=== PATIENT | male | born 1955 | race Caucasian/White ===

== ENCOUNTER → 2017-09-06 | Outpatient (CLI) | payer OTHER ==
[2017-09-06 11:12] LABS: Blood Urea Nitrogen 20 mg/dL (9-20)
--- NOTE | 2017-09-06 21:08 | MR ---
EXAMINATION TYPE: MR iac wo/w con DATE OF EXAM: 09/06/2017 COMPARISON: NONE HISTORY: Right hearing loss CONTRAST: Performed utilizing 9 mL intravenous Gadavist gadolinium contrast. TECHNIQUE: Multiplanar, multiecho imaging on a 3.0 Yessica magnet is performed through the brain. Atte ntion is paid to the internal auditory canals with thin section imaging. Postcontrast imaging is per formed through the internal auditory canals. FINDINGS:Craniovertebral junction is normal. The pituitary is normal. Diffusion-weighted imaging is performed. No suspicious hyperintensity is present to suggest an acute intracranial infarct or acute ischemic area. Signal within the brain has minimal periventricular white matter hyperintensity on T2 and inversion r ecovery type sequences which can suggest some chronic appearing white matter ischemic type change. No mass effect is evident. No focal infarct is evident.. Thin section imaging is performed through the internal auditory canals and cerebellar pontine angles. No cerebellar pontine angle masses are evident. The internal auditory canals appear normal without expansion or erosion. Postcontrast imaging was performed. No suspicious enhancement is evident within the internal audito ry canals or the included portions of the brain. Pituitary stalk is midline. There may be an air-fluid level within the right maxillary sinus. Mild mucosal thickenings within the right maxillary sinus. Correlate for acute sinusitis. Minimal mucosal thickening may be within ethmo id air cells. Remaining paranasal sinuses are clear. Mastoid air cells are clear. No abnormal enhancement is evident within the brain or elsewhere within the visualized portions of th e study. IMPRESSIONS: 1. Normal internal auditory canals. 2. Minimal periventricular chronic appearing white matter ischemic type changes. 3. Clinical consideration for acute right maxillary sinusitis is recommended.
== END | disposition home or self-care (01) ==
LOC: RADMRIMAIN 07-06 14:14 → EDBD 07-06 15:15 → RADMRIMAIN 10:00
PROVIDERS: ATTEND Otolaryngology Otology & Neurotology
DX: H90.5 Unspecified sensorineural hearing loss (principal)
CPT/HCPCS: 82565; 84520; 70553; A9581

== ENCOUNTER 2018-09-08 01:11 | Emergency (ER) | payer OTHER ==
[2018-09-08 01:23] VITALS: BP 149/88; PULSE 69; RESP 16; TEMP 98.3
--- NOTE | 2018-09-08 02:01 | ED ---
General Adult HPI - General Chief complaint: Recheck/Abnormal Lab/Rx Stated complaint: [facility] testing no injury Time Seen by Provider: 09/08/18 01:27 Source: patient Mode of arrival: ambulatory Limitations: no limitations - History of Present Illness Initial comments: Patient is here for drug screen. Declines medical screening exam. - Related Data Home Medications Medication Instructions Recorded Confirmed Naproxen 500 mg PO DAILY PRN 09/08/18 09/08/18 Allergies Allergy/AdvReac Type Severity Reaction Status Date / Time No Known Allergies Allergy Verified 09/08/18 01:23 Review of Systems ROS Statement: Those systems with pertinent positive or pertinent negative responses have been documented in the HPI. ROS Other: All systems not noted in ROS Statement are negative. Past Medical History Past Medical History: No Reported History History of Any Multi-Drug Resistant Organisms: None Reported Additional Past Surgical History / Comment(s): Sinus pollups removed, Broken Jaw repair Past Psychological History: No Psychological Hx Reported Smoking Status: Current every day smoker Past Alcohol Use History: None Reported Past Drug Use History: None Reported General Exam Limitations: no limitations Course Vital Signs 09/08/18 01:15 Temperature 98.3 F Pulse Rate 69 Respiratory 16 Rate Blood Pressure 149/88 O2 Sat by Pulse 96 Oximetry Disposition Clinical Impression: Encounter for drug screening Disposition: HOME SELF-CARE Condition: Good Is patient prescribed a controlled substance at d/c from ED?: No Referrals: Pedro Márquez MD [Primary Care Provider] - 1-2 days
== END 2018-09-08 01:45 ==
LOC: EC 01:11
DX: Z02.89 Encounter for other administrative examinations (principal)

== ENCOUNTER 2019-12-27 01:59 | Inpatient (IN) | payer OTHER ==
[2019-12-27] MEDS ORDERED: SODIUM CHLORIDE 0.9% 1,000 ML IV STA (02:21)
[2019-12-27] MEDS ORDERED: MORPHINE SULFATE 4 MG/ML SYRINGE IV STA (02:21)
[2019-12-27] MEDS ORDERED: ACETAMINOPHEN TAB 325 MG TAB PO STA (02:29)
--- NOTE | 2019-12-27 02:29 | ED ---
General Adult HPI - General Source: patient, RN notes reviewed, old records reviewed Mode of arrival: ambulatory Limitations: no limitations <Logan Espinoza - Last Filed: 12/27/19 02:28> <Mando Mejia - Last Filed: 12/27/19 04:03> - General Chief complaint: Abdominal Pain Stated complaint: Back pain Time Seen by Provider: 12/27/19 02:08 - History of Present Illness Initial comments: 64-year-old male patient presents to ED for chief complaint of back and abdominal pain. Patient works for the last week he has been having pain in his lower and thoracic back region. Patient also works a has been having generalized abdominal discomfort which is worse in the lower quadrants region. Also reports that he has been having fevers. He states he does have a baseline smoker's cough over this is unchanged. He has been having nausea without emesis. Denies any chest pain or shortness of breath. Ports that he has had some mild burning with urination and states that the urine. Systemic: Pt denies fatigue, fever/chills, rash. Pt denies weakness, night sweats, weight loss. Neuro: Pt denies headache, visual disturbances, syncope or pre-syncope. HEENT: Pt denies ocular discharge or irritation, otalgia, rhinorrhea, pharyngitis or notable lymphadenopathy. Cardiopulmonary: Pt denies chest pain, SOB, heart palpitations, dyspnea on exertion. . : Pt denies dysuria, burning w/ urination, frequency/urgency. Denies new onset urinary or bowel incontinence. MSK: Pt denies myalgia, loss of strength or function in extremities. Neuro: Pt denies new onset weakness, paresthesias. (Logan Espinoza) - Related Data Home Medications Medication Instructions Recorded Confirmed Naproxen 500 mg PO DAILY PRN 09/08/18 09/08/18 Allergies Allergy/AdvReac Type Severity Reaction Status Date / Time No Known Allergies Allergy Verified 12/27/19 02:06 Review of Systems ROS Other: All systems not noted in ROS Statement are negative. <Logan Espinoza - Last Filed: 12/27/19 02:28> ROS Other: All systems not noted in ROS Statement are negative. <Mando Mejia - Last Filed: 12/27/19 04:03> ROS Statement: Those systems with pertinent positive or pertinent negative responses have been documented in the HPI. Past Medical History Past Medical History: No Reported History History of Any Multi-Drug Resistant Organisms: None Reported Additional Past Surgical History / Comment(s): Sinus pollups removed, Broken Jaw repair Past Psychological History: No Psychological Hx Reported Smoking Status: Current every day smoker Past Alcohol Use History: None Reported Past Drug Use History: None Reported <Logan Espinoza - Last Filed: 12/27/19 02:28> General Exam Limitations: no limitations <Logan Espinoza - Last Filed: 12/27/19 02:28> Eye exam: Present: scleral icterus <Mando Mejia - Last Filed: 12/27/19 04:03> - General Exam Comments Initial Comments: Constitutional: NAD, AOX3, Pt has pleasant affect. HEENT: NC/AT, trachea midline, neck supple, no lymphadenopathy. Posterior pharynx non erythematous, without exudates. External ears appear normal, without discharge. Mucous membranes moist. Eyes PERRLA, EOM intact. There is no scleral icterus. No pallor noted. Cardiopulmonary: RRR, no murmurs, rubs or gallops, no JVD noted. Lungs CTAB in anterior and posterior gaines. No peripheral edema. Abdominal exam: Abdomen soft and non-distended. Mild generalized abdominal tenderness, moderate tenderness noted left lower right lower quadrant. Bowel sounds active in LLQ. No hepatosplenomegaly. No ecchymosis Neuro: CN II-XII grossly intact. No nuchal rigidity. No raccon eyes, no hansen sign, no hemotympanum. No cervical spinal tenderness. MSK: No posterior calf tenderness bilaterally, homans sign negative bilaterally. Posterior tibialis and radial pulse +2 bilaterally. Sensation intact in upper and lower extremities. Full active ROM in upper and lower extremities, 5/5 stregnth. (Logan Espinoza) Course Vital Signs 12/27/19 12/27/19 02:04 03:58 Temperature 100.1 F H Pulse Rate 81 69 Respiratory 20 18 Rate Blood Pressure 173/81 143/87 O2 Sat by Pulse 99 97 Oximetry Medical Decision Making - Lab Data Result diagrams: 12/27/19 02:45 12/27/19 02:45 <Mando Mejia - Last Filed: 12/27/19 04:03> - Medical Decision Making 64-year-old male presenting with abdominal pain and right flank pain. Patient has had symptoms for approximately one week. He has generalized abdominal tenderness. On exam he is jaundiced with scleral icterus, vital signs are stable. Workup reveals normal white blood cell count with left shift, stable hemoglobin. He has transaminitis, elevation in alkaline phosphatase and significantly elevated bilirubin at 7.1. Bilirubin fractions and hepatitis panel have been ordered these results are pending. CT of the abdomen and pelvis showing dilated common bile duct, dilated gallbladder, concern for ascending cholangitis. Patient initiated on antibiotics in the emergency department. Both general surgery, Dr. Ruvalcaba and gastroenterology Dr. Bertrand have been contacted. (Mando Mejia) - Lab Data Lab Results 12/27/19 12/27/19 12/27/19 Range/Units 02:45 02:45 02:45 WBC 10.4 (3.8-10.6) k/uL RBC 4.73 (4.30-5.90) m/uL Hgb 15.7 (13.0-17.5) gm/dL Hct 48.6 (39.0-53.0) % MCV 102.7 H (80.0-100.0) fL MCH 33.2 (25.0-35.0) pg MCHC 32.4 (31.0-37.0) g/dL RDW 14.7 (11.5-15.5) % Plt Count 109 L (150-450) k/uL Neutrophils % 89 % Lymphocytes % 5 % Monocytes % 3 % Eosinophils % 2 % Basophils % 0 % Neutrophils # 9.3 H (1.3-7.7) k/uL Lymphocytes # 0.5 L (1.0-4.8) k/uL Monocytes # 0.3 (0-1.0) k/uL Eosinophils # 0.2 (0-0.7) k/uL Basophils # 0.0 (0-0.2) k/uL Macrocytosis Slight Sodium 134 L (137-145) mmol/L Potassium 4.4 (3.5-5.1) mmol/L Chloride 98 (98-107) mmol/L Carbon Dioxide 27 (22-30) mmol/L Anion Gap 9 mmol/L BUN 14 (9-20) mg/dL Creatinine 0.71 (0.66-1.25) mg/dL Est GFR (CKD-EPI)AfAm >90 (>60 ml/min/1.73 sqM) Est GFR (CKD-EPI)NonAf >90 (>60 ml/min/1.73 sqM) Glucose 122 H (74-99) mg/dL Plasma Lactic Acid Matt 1.2 (0.7-2.0) mmol/L Calcium 9.0 (8.4-10.2) mg/dL Total Bilirubin 7.1 H (0.2-1.3) mg/dL Conjugated Bilirubin (0.0-0.3) mg/dL Unconjugated Bilirubin (0.0-1.1) mg/dL Delta Bilirubin (0.0-0.2) mg/dL AST 117 H (17-59) U/L ALT 95 H (4-49) U/L Alkaline Phosphatase 581 H (38-126) U/L Total Protein 6.9 (6.3-8.2) g/dL Albumin 4.0 (3.5-5.0) g/dL Lipase 30 (23-300) U/L Urine Color Urine Appearance (Clear) Urine pH (5.0-8.0) Ur Specific Jackson (1.001-1.035) Urine Protein (Negative) Urine Glucose (UA) (Negative) Urine Ketones (Negative) Urine Blood (Negative) Urine Nitrite (Negative) Urine Bilirubin (Negative) Urine Urobilinogen (<2.0) mg/dL Ur Leukocyte Esterase (Negative) Urine RBC (0-5) /hpf Urine WBC (0-5) /hpf Granular Casts (0) /lpf Urine Mucus (None) /hpf Acetaminophen ug/mL Serum Alcohol mg/dL 12/27/19 12/27/19 Range/Units 03:20 03:23 WBC (3.8-10.6) k/uL RBC (4.30-5.90) m/uL Hgb (13.0-17.5) gm/dL Hct (39.0-53.0) % MCV (80.0-100.0) fL MCH (25.0-35.0) pg MCHC (31.0-37.0) g/dL RDW (11.5-15.5) % Plt Count (150-450) k/uL Neutrophils % % Lymphocytes % % Monocytes % % Eosinophils % % Basophils % % Neutrophils # (1.3-7.7) k/uL Lymphocytes # (1.0-4.8) k/uL Monocytes # (0-1.0) k/uL Eosinophils # (0-0.7) k/uL Basophils # (0-0.2) k/uL Macrocytosis Sodium (137-145) mmol/L Potassium (3.5-5.1) mmol/L Chloride (98-107) mmol/L Carbon Dioxide (22-30) mmol/L Anion Gap mmol/L BUN (9-20) mg/dL Creatinine (0.66-1.25) mg/dL Est GFR (CKD-EPI)AfAm (>60 ml/min/1.73 sqM) Est GFR (CKD-EPI)NonAf (>60 ml/min/1.73 sqM) Glucose (74-99) mg/dL Plasma Lactic Acid Matt (0.7-2.0) mmol/L Calcium (8.4-10.2) mg/dL Total Bilirubin 6.1 H (0.2-1.3) mg/dL Conjugated Bilirubin 3.8 H (0.0-0.3) mg/dL Unconjugated Bilirubin 1.1 (0.0-1.1) mg/dL Delta Bilirubin 1.2 H (0.0-0.2) mg/dL AST (17-59) U/L ALT (4-49) U/L Alkaline Phosphatase (38-126) U/L Total Protein (6.3-8.2) g/dL Albumin (3.5-5.0) g/dL Lipase (23-300) U/L Urine Color Dark Yellow Urine Appearance Clear (Clear) Urine pH 7.5 (5.0-8.0) Ur Specific Jackson 1.024 (1.001-1.035) Urine Protein 1+ H (Negative) Urine Glucose (UA) Negative (Negative) Urine Ketones Negative (Negative) Urine Blood Trace H (Negative) Urine Nitrite Negative (Negative) Urine Bilirubin 3+ H (Negative) Urine Urobilinogen 4.0 (<2.0) mg/dL Ur Leukocyte Esterase Small H (Negative) Urine RBC 27 H (0-5) /hpf Urine WBC 1 (0-5) /hpf Granular Casts 1 (0) /lpf Urine Mucus Rare H (None) /hpf Acetaminophen <10.0 ug/mL Serum Alcohol <10 mg/dL Critical Care Time Critical Care Time: Yes Total Critical Care Time: 35 <Mando Mejia - Last Filed: 12/27/19 04:03> Disposition <Logan Espinoza - Last Filed: 12/27/19 02:28> Is patient prescribed a controlled substance at d/c from ED?: No Decision to Admit Reason: Admit from EC Decision Date: 12/27/19 Decision Time: 04:03 <Mando Mejia - Last Filed: 12/27/19 04:03> Clinical Impression: Hyperbilirubinemia, Acute cholecystitis, Ascending cholangitis Disposition: ADMITTED IP TO THIS HOSP Condition: Stable Referrals: Pedro Márquez MD [Primary Care Provider] - 1-2 days
[2019-12-27 02:59] LABS: Basophils % (A) 0 %; Eosinophils # (A) 0.2 k/uL (0-0.7); Eosinophils % (A) 2 %; HCT 48.6 % (39.0-53.0); HGB 15.7 gm/dL (13.0-17.5); Lymphocytes # (A) 0.5 k/uL (1.0-4.8); Lymphocytes % (A) 5 %; MCH 33.2 pg (25.0-35.0); MCHC 32.4 g/dL (31.0-37.0); MCV 102.7 fL (80.0-100.0); Macrocytosis Slight; Mean Platelet Volume 9.8; Monocytes # (A) 0.3 k/uL (0-1.0); Monocytes % (A) 3 %; Neutrophils # (A) 9.3 k/uL (1.3-7.7); Neutrophils % (A) 89 %; Platelet Count 109 k/uL (150-450); RBC 4.73 m/uL (4.30-5.90); RDW 14.7 % (11.5-15.5); WBC 10.4 k/uL (3.8-10.6)
[2019-12-27 03:08] LABS: ALT 95 U/L (4-49); AST 117 U/L (17-59); African American GFR (CKD) >90 (>60 ml/min/1.73 sqM); Alkaline Phosphatase 581 U/L (38-126); Anion Gap 9 mmol/L; Blood Urea Nitrogen 14 mg/dL (9-20); Carbon Dioxide 27 mmol/L (22-30); Chloride 98 mmol/L (98-107); Glucose 122 mg/dL (74-99); Non-African American GFR(CKD) >90 (>60 ml/min/1.73 sqM); Potassium 4.4 mmol/L (3.5-5.1); Sodium 134 mmol/L (137-145); Total Bilirubin 7.1 mg/dL (0.2-1.3); Total Protein 6.9 g/dL (6.3-8.2)
[2019-12-27] MEDS ORDERED: cefTRIAXone IN SWFI 1,000 MG/10 ML SYRINGE IVP STA (03:11)
[2019-12-27 03:40] LABS: Appearance,Urine Clear (Clear); Bilirubin,Urine 3+ (Negative); Blood,Urine Trace (Negative); Color,Urine Dark Yellow; Glucose,Urine (UA) Negative (Negative); Granular Casts,Urine 1 /lpf (0); Ketones,Urine Negative (Negative); Leukocyte Esterase,Urine Small (Negative); Mucus,Urine Rare /hpf; Nitrite,Urine Negative (Negative); PH, Urine 7.5 (5.0-8.0); Protein,Urine 1+ (Negative); RBC,Urine 27 /hpf (0-5); Specific Gravity,Urine 1.024 (1.001-1.035); WBC,Urine 1 /hpf (0-5)
[2019-12-27 03:46] LABS: Acetaminophen <10.0 ug/mL; Alcohol <10 mg/dL; Bilirubin, Conjugated 3.8 mg/dL (0.0-0.3); Bilirubin, Delta 1.2 mg/dL (0.0-0.2); Bilirubin,Unconjugated 1.1 mg/dL (0.0-1.1); Total Bilirubin 6.1 mg/dL (0.2-1.3)
[2019-12-27] MEDS: SODIUM CHLORIDE 0.9% 1,000 ML IV SCH ×2 (03:55→20:16)
--- NOTE | 2019-12-27 03:55 | CT ---
EXAMINATION TYPE: CT abdomen pelvis w con DATE OF EXAM: 12/27/2019 COMPARISON: None HISTORY: LOWER BACK/ABD PAIN CT DLP: 872.50 mGycm Automated exposure control for dose reduction was used. CONTRAST: Performed with IV Contrast, patient injected with 100 mL of Isovue 300. Lung bases are clear of consolidation. There is no pleural effusion. Heart size is normal. There is s mall hiatal hernia. There is dilated intra and extrahepatic bile ducts. The common bile duct measures 1.5 cm. There is dilated gallbladder that measures 5 cm in diameter. There is possible small calcifi ed gallstones in the dependent gallbladder. There is no focal liver defect. Spleen is intact. There i s no evidence of pancreatic mass. There is no adrenal mass. Kidneys show satisfactory contrast opacification. There is no hydronephrosi s. Delayed images show normal renal excretion. There is 3 mm calculus lower pole right kidney. There is no retroperitoneal adenopathy. Ureters are not dilated. Bladder distends smoothly. There is no ing uinal hernia. There is no free fluid in the pelvis. There is no mesenteric edema. There is no ascites or free air. There is no sign of a bowel obstruction. There is no sign of thickened appendix. Append ix not definitely seen. Lumbar vertebra have normal alignment. There is degenerative disc space narrowing throughout the lumb ar spine with vacuum disc and spur formation. There is no compression fracture. Bony pelvis is intact . IMPRESSION: Dilated biliary tree. Distal common bile duct obstruction is suspected. Dilated gallbladder. Nonobstructing right renal calculus.
[2019-12-27] MEDS ORDERED: VANCOMYCIN IV PER PHARMACY 1 EACH MISC MISCELLANE PRN (03:56)
[2019-12-27] MEDS ORDERED: PIPERACILLIN-TAZOBACTAM 3.375 GM in SODIUM CHLORIDE 0.9% 100 ML IVPB STA (03:56)
[2019-12-27] MEDS ORDERED: NALOXONE 0.4 MG/ML 1 ML VIAL IV PRN (03:58)
[2019-12-27] MEDS ORDERED: VANCOMYCIN 1,500 MG in SODIUM CHLORIDE 0.9% 250 ML IVPB STA (04:04)
[2019-12-27] MEDS: HYDROmorphone 0.5 MG/0.5 ML SYRINGE IVP PRN ×2 (04:17→09:23)
[2019-12-27 04:20] LABS: Amphetamine Screen,Urine Not Detected (NotDetected); Barbiturate Screen,Urine Not Detected (NotDetected); Benzodiazepines Screen,Urine Not Detected (NotDetected); Cocaine Screen,Urine Detected (NotDetected); Methadone Screen, Urine Not Detected (NotDetected); Opiate Screen,Urine Detected (NotDetected); Oxycodone Screen, Urine Not Detected (NotDetected); Phencyclidine Screen,Urine Not Detected (NotDetected); Tricyclic Antidepressant,Urine Not Detected (NotDetected); Urn Cannabinoid Scrn Detected (NotDetected)
[2019-12-27 04:32] LABS: Hepatitis A Antibody IgM NEGATIVE
[2019-12-27] MEDS ORDERED: NICOTINE 21MG/24HR PATCH TRANSDERM STA (04:35)
[2019-12-27] MEDS ORDERED: ALBUTEROL NEBULIZED 2.5 MG/3 ML INHALATION PRN (08:10)
[2019-12-27] MEDS ORDERED: ZOLPIDEM 5 MG TAB PO PRN (08:10)
--- NOTE | 2019-12-27 08:24 | P.HPIM ---
History of Present Illness This is a pleasant 64 years old male with no significant past medical history. He is a patient of Dr. Segovia presents because of back pain and fever. His symptoms started about 1 week ago with right middle back pain just below chest, comes and go, colicky/sharp about 10 over 10 on presentation currently /10. Associated with RUQ pain and tenderness no rebound tenderness. No nausea vomiting, he has constipation for 2 days. No chest pain or dyspnea. He smokes about 1 pack per day, occasional alcohol, he admits using substances cocaine marijuana but not her wound is said he uses a substance called kratum. Patient states he uses Wellbutrin for smoking cessation. He denies depression or suicidal ideation Fever on admission with 100.1, rest of vitals are stable, blood pressure this morning 106/66. Left showing no leukocytosis with WBC of 10.4, rest of CBC is unremarkable. Sodium 134, potassium 4.4, creatinine normal 0.4, glucose 122, bilirubin is elevated to 7.1, 6.1, AST high at 117, ALT high 95, UA is not suspicious of infection, urine drug screen is positive for opiates, cocaine and marijuana. Hepatitis a IgM antibodies are negative on admission. CT of the abdomen and pelvis with IV contrast: Dilated biliary tract both intra- and extra-hepatic. Coming bile duct measures 1.5 cm, dilated gallbladder, 5 cm in diameter In the emergency room patient was receiving normal saline bolus of 1 L and started on 100 mL/h, started on Zosyn, vancomycin pain management surgery was placed for GI and surgery service Review of Systems CONSTITUTIONAL: No fever, no malaise, no fatigue. HEENT: No recent visual problems or hearing problems. Denied any sore throat. CARDIOVASCULAR: No orthopnea, PND, no palpitations, no syncope. PULMONARY: No shortness of breath, no cough, no hemoptysis. GASTROINTESTINAL: No diarrhea, no nausea, no vomiting,Normoactive bowel sounds. NEUROLOGICAL: No headaches, no weakness, no numbness. HEMATOLOGICAL: Denies any bleeding or petechiae. GENITOURINARY: Denies any burning micturition, frequency, or urgency. MUSCULOSKELETAL/RHEUMATOLOGICAL: Denies any joint pain, swelling, or any muscle pain. ENDOCRINE: Denies any polyuria or polydipsia. Past Medical History Past Medical History: No Reported History History of Any Multi-Drug Resistant Organisms: None Reported Additional Past Surgical History / Comment(s): Sinus polyps removed, Broken Jaw repair Past Anesthesia/Blood Transfusion Reactions: No Reported Reaction Past Psychological History: No Psychological Hx Reported Smoking Status: Current every day smoker Past Alcohol Use History: None Reported Past Drug Use History: None Reported - Past Family History Father Family Medical History: No Reported History Medications and Allergies Home Medications Medication Instructions Recorded Confirmed Type Naproxen 500 mg PO DAILY PRN 09/08/18 09/08/18 History Allergies Allergy/AdvReac Type Severity Reaction Status Date / Time No Known Allergies Allergy Verified 12/27/19 02:06 Physical Exam Vitals: Vital Signs Temp Pulse Pulse Resp BP BP Pulse Ox 12/27/19 05:09 98.4 F 60 18 106/66 98 12/27/19 04:27 97.4 F L 66 18 139/88 97 12/27/19 03:58 69 18 143/87 97 12/27/19 02:04 100.1 F H 81 20 173/81 99 Intake and Output 12/26/19 12/27/19 12/27/19 22:59 06:59 14:59 Intake Total 100 Balance 100 Intake: Intake, IV Titration 100 Amount Piperacillin-Tazobactam 3 100 .375 gm In Sodium Chloride 0.9% 100 ml @ 25 mls/hr IVPB Q8H [facility] Rx#: [id number] Other: # Voids 1 Weight 81.5 kg GENERAL: The patient is alert and oriented x3, not in any acute distress. Well developed, well nourished. HEENT: Pupils are round and equally reacting to light. EOMI. No scleral icterus. No conjunctival pallor. Normocephalic, atraumatic. No pharyngeal erythema. No thyromegaly. CARDIOVASCULAR: S1 and S2 present. No murmurs, rubs, or gallops. PULMONARY: Chest is clear to auscultation, no wheezing or crackles. -ABDOMEN: Soft, RUQ tenderness, no guarding or rebound tenderness, nondistended, normoactive bowel sounds. No palpable organomegaly. MUSCULOSKELETAL: No joint swelling or deformity. EXTREMITIES: No cyanosis, clubbing, or pedal edema. NEUROLOGICAL: Gross neurological examination did not reveal any focal deficits. SKIN: No rashes. No petechiae Results CBC & Chem 7: 12/27/19 02:45 05/20/20 02:45 Labs: Abnormal Lab Results - Last 24 Hours (Table) 12/27/19 12/27/19 12/27/19 Range/Units 02:45 02:45 03:20 MCV 102.7 H (80.0-100.0) fL Plt Count 109 L (150-450) k/uL Neutrophils # 9.3 H (1.3-7.7) k/uL Lymphocytes # 0.5 L (1.0-4.8) k/uL Sodium 134 L (137-145) mmol/L Glucose 122 H (74-99) mg/dL Total Bilirubin 7.1 H (0.2-1.3) mg/dL Conjugated Bilirubin (0.0-0.3) mg/dL Delta Bilirubin (0.0-0.2) mg/dL AST 117 H (17-59) U/L ALT 95 H (4-49) U/L Alkaline Phosphatase 581 H (38-126) U/L Urine Protein 1+ H (Negative) Urine Blood Trace H (Negative) Urine Bilirubin 3+ H (Negative) Ur Leukocyte Esterase Small H (Negative) Urine RBC 27 H (0-5) /hpf Urine Mucus Rare H (None) /hpf Urine Opiates Screen (NotDetected) Urine Cocaine Screen (NotDetected) U Marijuana (THC) Screen (NotDetected) 12/27/19 12/27/19 Range/Units 03:23 03:23 MCV (80.0-100.0) fL Plt Count (150-450) k/uL Neutrophils # (1.3-7.7) k/uL Lymphocytes # (1.0-4.8) k/uL Sodium (137-145) mmol/L Glucose (74-99) mg/dL Total Bilirubin 6.1 H (0.2-1.3) mg/dL Conjugated Bilirubin 3.8 H (0.0-0.3) mg/dL Delta Bilirubin 1.2 H (0.0-0.2) mg/dL AST (17-59) U/L ALT (4-49) U/L Alkaline Phosphatase (38-126) U/L Urine Protein (Negative) Urine Blood (Negative) Urine Bilirubin (Negative) Ur Leukocyte Esterase (Negative) Urine RBC (0-5) /hpf Urine Mucus (None) /hpf Urine Opiates Screen Detected H (NotDetected) Urine Cocaine Screen Detected H (NotDetected) U Marijuana (THC) Screen Detected H (NotDetected) Thrombosis Risk Factor Assmnt - Choose All That Apply Any of the Below Risk Factors Present?: No Other Risk Factors: Yes Each Risk Factor Represents 2 Points: Age 61-74 years Other congenital or acquired thrombophilia - If yes, enter type in comment: No Thrombosis Risk Factor Assessment Total Risk Factor Score: 2 Thrombosis Risk Factor Assessment Level: Low Risk Assessment and Plan Assessment: acute ascending cholangitis Dilated intra-and extrahepatic biliary tract and dilated gallbladder about 5 cm. Mostly associated with gallstones Substance abuse including opiates, cocaine and marijuana Plan: This is a pleasant 64 years old male who presents with ascending cholangitis with gallstone disease.Continue with antibiotics. Follow-up culture results. GI and surgery consult. Continue with IV fluids. Pain management. Also co nsult infectious disease. Patient is counseled about substance abuse avoidance. Labs and medication were reviewed.. Continue same treatment. Continue with symptomatic treatment. Resume home medication. Monitor lytes and vitals. DVT and GI prophylaxis. Further recommendations of the clinical course of the patient DVT prophylaxis: Subcutaneou Lovenox GI Prophylaxis: Pepcid Prognosis is guarded
[2019-12-27] MEDS: ENOXAPARIN 40 MG/0.4 ML SYRINGE SQ SCH (09:18)
[2019-12-27] MEDS: FAMOTIDINE 20 MG/2 ML VIAL IV SCH ×2 (09:18→20:15)
[2019-12-27] MEDS: PIPERACILLIN-TAZOBACTAM 3.375 GM in SODIUM CHLORIDE 0.9% 100 ML IVPB SCH ×2 (11:51→20:15)
--- NOTE | 2019-12-27 12:00 | P.CONS ---
History of Present Illness - Reason for Consult Consult date: 12/27/19 Elevated liver enzymes, suspected cholangitis Requesting physician: Portillo E Sheet - Chief Complaint Back and abdominal pain - History of Present Illness 64-year-old male who denies any significant past medical history who presented to the hospital with constellation of complaints including back pain, abdominal pain and fever. The patient reports symptoms for approximately one week. He had been experiencing abdominal and back pain. He believed that this was secondary to his job and strenuous activity however continued. He reported the pain as sharp and severe in nature in the middle of his back and with associated right upper quadrant pain and tenderness. He denied any nausea or vomiting. He did report some constipation over the past 2 days. Patient was having fevers at home. He presented to the hospital for further evaluation and was found to have a fever of 100.1F, WBC 10.4, hemoglobin 8.7, platelet count 109,000, total bilirubin 7.1, alkaline phosphatase 581, AST 117, ALT 95 with computed tomography scan of the abdomen significant for a dilated gallbladder and a dilated biliary tree with suspicion for distal bile duct obstruction. Review of Systems REVIEW OF SYSTEMS: CONSTITUTIONAL: Denies any weight change or fatigue, but was experiencing fevers. CARDIOVASCULAR: Denies any chest pain, palpitations high or low blood pressures RESPIRATORY: Denies any shortness of breath, hemoptysis or cough. GENITOURINARY: No dysuria or hematuria. MUSCULOSKELETAL: No weakness reported. SKIN: Denies any new rashes or lesions, but had noted some jaundice. PSYCHIATRIC: Denies any depression or anxiety, tobacco abuse. NEUROLOGY: Denies headache, denies any new focal deficits. EARS/NOSE/THROAT: No recent hearing change, congestion, nasal discharge or sore throat. EYES: No pain in eyes, discharge or change in vision. GASTROINTESTINAL: As per HPI. Past Medical History Past Medical History: No Reported History History of Any Multi-Drug Resistant Organisms: None Reported Additional Past Surgical History / Comment(s): Sinus polyps removed, Broken Jaw repair Past Anesthesia/Blood Transfusion Reactions: No Reported Reaction Past Psychological History: No Psychological Hx Reported Smoking Status: Current every day smoker Past Alcohol Use History: None Reported Past Drug Use History: None Reported - Past Family History Father Family Medical History: No Reported History Medications and Allergies Home Medications Medication Instructions Recorded Confirmed Type Naproxen 500 mg PO DAILY PRN 09/08/18 12/27/19 History Albuterol Sulfate [Proair Hfa] 2 puff INHALATION RT-Q6H PRN 12/27/19 12/27/19 History Testosterone Cypionate 200 mg IM Q14D 12/27/19 12/27/19 History [Depo-Testosterone] Zolpidem [Ambien] 2.5 - 5 mg PO HS PRN 12/27/19 12/27/19 History buPROPion HCL [Wellbutrin SR] See Taper PO DAILY 12/27/19 12/27/19 History Allergies Allergy/AdvReac Type Severity Reaction Status Date / Time No Known Allergies Allergy Verified 12/27/19 08:07 Physical Exam Vitals: Vital Signs Temp Pulse Pulse Resp BP BP Pulse Ox 12/27/19 05:09 98.4 F 60 18 106/66 98 12/27/19 04:27 97.4 F L 66 18 139/88 97 12/27/19 03:58 69 18 143/87 97 12/27/19 02:04 100.1 F H 81 20 173/81 99 Intake and Output 12/26/19 12/27/19 12/27/19 22:59 06:59 14:59 Intake Total 100 Balance 100 Intake: Intake, IV Titration 100 Amount Piperacillin-Tazobactam 3 100 .375 gm In Sodium Chloride 0.9% 100 ml @ 25 mls/hr IVPB Q8H [facility] Rx#: [id number] Other: # Voids 1 Weight 81.5 kg On physical examination, patient appears comfortable in no apparent distress. HEAD: Normocephalic, atraumatic. EYES: No scleral icterus. No conjunctival injection. MOUTH: No lesions, tongue midline. NECK: Trachea midline, no gross abnormalities. CHEST: Decreased air entry in all lung gaines. HEART: Regular rate and rhythm. ABDOMEN: Soft, mildly tender to palpation. Bowel sounds are positive. No organomegaly. No guarding or rigidity. EXTREMITIES: No pedal edema. SKIN: No rashes, no jaundice. NEUROLOGIC: Alert and oriented x3. No focal deficits. Results CBC & Chem 7: 12/27/19 02:45 12/27/19 02:45 Labs: Abnormal Lab Results - Last 24 Hours (Table) 12/27/19 12/27/19 12/27/19 Range/Units 02:45 02:45 03:20 MCV 102.7 H (80.0-100.0) fL Plt Count 109 L (150-450) k/uL Neutrophils # 9.3 H (1.3-7.7) k/uL Lymphocytes # 0.5 L (1.0-4.8) k/uL Sodium 134 L (137-145) mmol/L Glucose 122 H (74-99) mg/dL Total Bilirubin 7.1 H (0.2-1.3) mg/dL Conjugated Bilirubin (0.0-0.3) mg/dL Delta Bilirubin (0.0-0.2) mg/dL AST 117 H (17-59) U/L ALT 95 H (4-49) U/L Alkaline Phosphatase 581 H (38-126) U/L Urine Protein 1+ H (Negative) Urine Blood Trace H (Negative) Urine Bilirubin 3+ H (Negative) Ur Leukocyte Esterase Small H (Negative) Urine RBC 27 H (0-5) /hpf Urine Mucus Rare H (None) /hpf Urine Opiates Screen (NotDetected) Urine Cocaine Screen (NotDetected) U Marijuana (THC) Screen (NotDetected) 12/27/19 05 Range/Units 03:23 03:23 MCV (80.0-100.0) fL Plt Count (150-450) k/uL Neutrophils # (1.3-7.7) k/uL Lymphocytes # (1.0-4.8) k/uL Sodium (137-145) mmol/L Glucose (74-99) mg/dL Total Bilirubin 6.1 H (0.2-1.3) mg/dL Conjugated Bilirubin 3.8 H (0.0-0.3) mg/dL Delta Bilirubin 1.2 H (0.0-0.2) mg/dL AST (17-59) U/L ALT (4-49) U/L Alkaline Phosphatase (38-126) U/L Urine Protein (Negative) Urine Blood (Negative) Urine Bilirubin (Negative) Ur Leukocyte Esterase (Negative) Urine RBC (0-5) /hpf Urine Mucus (None) /hpf Urine Opiates Screen Detected H (NotDetected) Urine Cocaine Screen Detected H (NotDetected) U Marijuana (THC) Screen Detected H (NotDetected) CT scan - abdomen: report reviewed (Computed tomography scan of the abdomen with findings of a dilated gallbladder, dilated biliary tree with suspected distal common bile duct obstruction.) Assessment and Plan (1) Ascending cholangitis Narrative/Plan: 64-year-old male who presented to the hospital with a constellation of symptoms including fevers, abdominal and back pain. Patient was found to have markedly elevated liver enzymes with total bilirubin 7.1, alkaline phosphatase 581, AST 117 and ALT 95 with fever on presentation suspicious for ascending cholangitis in the setting of computed tomography scan with findings of a dilated gallbladder, dilated biliary tree with suspected distal common bile duct obstruction. Current Visit: Yes Status: Acute Code(s): K83.09 - OTHER CHOLANGITIS SNOMED Code(s): 70373956 (2) Hyperbilirubinemia Current Visit: Yes Status: Acute Code(s): E80.6 - OTHER DISORDERS OF BILIRUBIN METABOLISM SNOMED Code(s): 88945920 Plan: Supportive care Nothing by mouth Broad-spectrum antibiotic therapy Continue to monitor CBC, BMP, LFTs Plan for ERCP today for treatment of suspected ascending cholangitis Surgical service consult Thank you for allowing us to participate in the care of this patient we will continue to follow
[2019-12-27] MEDS ORDERED: INDOMETHACIN 50MG SUPPOSITORY RECTAL ONE (13:00)
[2019-12-27] MEDS ORDERED: VANCOMYCIN 1,500 MG in SODIUM CHLORIDE 0.9% 250 ML IVPB SCH (13:00)
--- NOTE | 2019-12-27 14:18 | P.GSCN ---
History of Present Illness Consult date: 12/27/19 Reason for Consult: Acute cholecystitis Requesting physician: Mando Mejia History of present illness: CHIEF COMPLAINT: Cholecystitis HISTORY OF PRESENT ILLNESS: 64-year-old male who presented to the emergency room with a chief complaint of abdominal pain. Patient reports the pain is localized to his right upper quadrant. He also reports it radiates to his back. He denies nausea or vomiting. PAST MEDICAL HISTORY: See list. PAST SURGICAL HISTORY: See list. SOCIAL HISTORY: No illicit drug use. REVIEW OF SYSTEMS: CONSTITUTIONAL: Reports fever at home HEENT: Denies blurred vision, vision changes, or eye pain. Denies hemoptysis CARDIOVASCULAR: Denies chest pain or pressure. RESPIRATORY: No shortness of breath. GASTROINTESTINAL: Refer to HPI for pertinent findings HEMATOLOGIC: Denies bleeding disorders. GENITOURINARY: Denies any blood in urine. SKIN: Denies pruitis. Denies rash. PHYSICAL EXAM: VITAL SIGNS: Reviewed. GENERAL: Well-developed in no acute distress. HEENT: Bilateral sclera icterus. Extraocular movements grossly intact. Moist buccal mucosa. Head is atraumatic, normocephalic. ABDOMEN: Soft. Nondistended. Tenderness upon palpation of right upper quadrant. NEUROLOGIC: Alert and oriented. Cranial nerves II through XII grossly intact. LABORATORY DATA: WBC 10.4. Hemoglobin 15.7. Platelet count 109. IMAGING: CT abdomen and pelvis: Dilated biliary tree. Distal common bile duct obstruction suspected. Dilated gallbladder. ASSESSMENT: 1. Abdominal pain 2. Ascending cholangitis 3. Hyperbilirubinemia PLAN: -GI on consult. Plan for ERCP today. -Continue antibiotics -Monitor labs -Patient tentatively scheduled for laparoscopic cholecystectomy tomorrow with Dr. Ruvalcaba Nurse practitioner note has been reviewed by physician. Signing provider agrees with the documented findings, assessment, and plan of care. Past Medical History Past Medical History: No Reported History History of Any Multi-Drug Resistant Organisms: None Reported Additional Past Surgical History / Comment(s): Sinus polyps removed, Broken Jaw repair Past Anesthesia/Blood Transfusion Reactions: No Reported Reaction Past Psychological History: No Psychological Hx Reported Smoking Status: Current every day smoker Past Alcohol Use History: None Reported Past Drug Use History: None Reported - Past Family History Father Family Medical History: No Reported History Medications and Allergies Home Medications Medication Instructions Recorded Confirmed Type Naproxen 500 mg PO DAILY PRN 09/08/18 12/27/19 History Albuterol Sulfate [Proair Hfa] 2 puff INHALATION RT-Q6H PRN 12/27/19 12/27/19 History Testosterone Cypionate 200 mg IM Q14D 12/27/19 12/27/19 History [Depo-Testosterone] Zolpidem [Ambien] 2.5 - 5 mg PO HS PRN 12/27/19 12/27/19 History buPROPion HCL [Wellbutrin SR] See Taper PO DAILY 12/27/19 12/27/19 History Allergies Allergy/AdvReac Type Severity Reaction Status Date / Time No Known Allergies Allergy Verified 12/27/19 08:07 Surgical - Exam Vital Signs Temp Pulse Resp BP Pulse Ox 100.1 F H 81 20 173/81 99 12/27/19 02:04 12/27/19 02:04 12/27/19 02:04 12/27/19 02:04 12/27/19 02:04 Results - Labs 12/27/19 02:45 12/27/19 02:45 Abnormal Lab Results - Last 24 Hours (Table) 12/27/19 12/27/19 12/27/19 Range/Units 02:45 02:45 03:20 MCV 102.7 H (80.0-100.0) fL Plt Count 109 L (150-450) k/uL Neutrophils # 9.3 H (1.3-7.7) k/uL Lymphocytes # 0.5 L (1.0-4.8) k/uL Sodium 134 L (137-145) mmol/L Glucose 122 H (74-99) mg/dL Total Bilirubin 7.1 H (0.2-1.3) mg/dL Conjugated Bilirubin (0.0-0.3) mg/dL Delta Bilirubin (0.0-0.2) mg/dL AST 117 H (17-59) U/L ALT 95 H (4-49) U/L Alkaline Phosphatase 581 H (38-126) U/L Urine Protein 1+ H (Negative) Urine Blood Trace H (Negative) Urine Bilirubin 3+ H (Negative) Ur Leukocyte Esterase Small H (Negative) Urine RBC 27 H (0-5) /hpf Urine Mucus Rare H (None) /hpf Urine Opiates Screen (NotDetected) Urine Cocaine Screen (NotDetected) U Marijuana (THC) Screen (NotDetected) 12/27/19 12/27/19 Range/Units 03:23 03:23 MCV (80.0-100.0) fL Plt Count (150-450) k/uL Neutrophils # (1.3-7.7) k/uL Lymphocytes # (1.0-4.8) k/uL Sodium (137-145) mmol/L Glucose (74-99) mg/dL Total Bilirubin 6.1 H (0.2-1.3) mg/dL Conjugated Bilirubin 3.8 H (0.0-0.3) mg/dL Delta Bilirubin 1.2 H (0.0-0.2) mg/dL AST (17-59) U/L ALT (4-49) U/L Alkaline Phosphatase (38-126) U/L Urine Protein (Negative) Urine Blood (Negative) Urine Bilirubin (Negative) Ur Leukocyte Esterase (Negative) Urine RBC (0-5) /hpf Urine Mucus (None) /hpf Urine Opiates Screen Detected H (NotDetected) Urine Cocaine Screen Detected H (NotDetected) U Marijuana (THC) Screen Detected H (NotDetected) Diabetes panel 12/27/19 Range/Units 02:45 Sodium 134 L (137-145) mmol/L Potassium 4.4 (3.5-5.1) mmol/L Chloride 98 (98-107) mmol/L Carbon Dioxide 27 (22-30) mmol/L BUN 14 (9-20) mg/dL Creatinine 0.71 (0.66-1.25) mg/dL Glucose 122 H (74-99) mg/dL Calcium 9.0 (8.4-10.2) mg/dL AST 117 H (17-59) U/L ALT 95 H (4-49) U/L Alkaline Phosphatase 581 H (38-126) U/L Total Protein 6.9 (6.3-8.2) g/dL Albumin 4.0 (3.5-5.0) g/dL Calcium panel 12/27/19 Range/Units 02:45 Calcium 9.0 (8.4-10.2) mg/dL Albumin 4.0 (3.5-5.0) g/dL Pituitary panel 12/27/19 Range/Units 02:45 Sodium 134 L (137-145) mmol/L Potassium 4.4 (3.5-5.1) mmol/L Chloride 98 (98-107) mmol/L Carbon Dioxide 27 (22-30) mmol/L BUN 14 (9-20) mg/dL Creatinine 0.71 (0.66-1.25) mg/dL Glucose 122 H (74-99) mg/dL Calcium 9.0 (8.4-10.2) mg/dL Adrenal panel 12/27/19 12/27/19 Range/Units 02:45 03:23 Sodium 134 L (137-145) mmol/L Potassium 4.4 (3.5-5.1) mmol/L Chloride 98 (98-107) mmol/L Carbon Dioxide 27 (22-30) mmol/L BUN 14 (9-20) mg/dL Creatinine 0.71 (0.66-1.25) mg/dL Glucose 122 H (74-99) mg/dL Calcium 9.0 (8.4-10.2) mg/dL Total Bilirubin 7.1 H 6.1 H (0.2-1.3) mg/dL AST 117 H (17-59) U/L ALT 95 H (4-49) U/L Alkaline Phosphatase 581 H (38-126) U/L Total Protein 6.9 (6.3-8.2) g/dL Albumin 4.0 (3.5-5.0) g/dL
[2019-12-27] MEDS ORDERED: PROPOFOL 10 MG/ML 20 ML VIAL IV ONE (14:48)
[2019-12-27] MEDS ORDERED: ePHEDrine SULFATE/0.9% NACL/PF 50 MG/5 ML SYRINGE IV ONE (14:48)
[2019-12-27] MEDS ORDERED: fentaNYL (PF) 50 MCG/ML 2 ML AMP ONE (14:48)
[2019-12-27] MEDS ORDERED: LIDOCAINE 1% INJ 10MG/ML (20 ML MDV) ONE (14:48)
[2019-12-27] MEDS ORDERED: MIDAZOLAM 2 MG/2 ML VIAL ONE (14:48)
[2019-12-27] MEDS ORDERED: SUCCINYLCHOLINE CHLORIDE 100 MG/5 ML SYR IV ONE (14:48)
[2019-12-27] MEDS ORDERED: WATER FOR INJECTION, STERILE 10 ML VIAL IV ONE (14:48)
[2019-12-27] MEDS ORDERED: IOPAMIDOL-300 50ML BTL MISCELLANE ONE (16:08)
[2019-12-27] MEDS ORDERED: IV FLUID CONTINUATION 1,000 ML IV ONE (16:09)
[2019-12-27] MEDS ORDERED: LACTATED RINGERS 1,000 ML IV ONE (16:10)
--- NOTE | 2019-12-27 16:17 | P.PCN ---
Date of Procedure: 12/27/19 Description of Procedure: Brief history: 64-year-old male who denies any significant past medical history who presented to the hospital with constellation of complaints including back pain, abdominal pain and fever. The patient reports symptoms for approximately one week. He had been experiencing abdominal and back pain. He believed that this was secondary to his job and strenuous activity however continued. He reported the pain as sharp and severe in nature in the middle of his back and with associated right upper quadrant pain and tenderness. He denied any nausea or vomiting. He did report some constipation over the past 2 days. Patient was having fevers at home. He presented to the hospital for further evaluation and was found to have a fever of 100.1F, WBC 10.4, hemoglobin 8.7, platelet count 109,000, total bilirubin 7.1, alkaline phosphatase 581, AST 117, ALT 95 with computed tomography scan of the abdomen significant for a dilated gallbladder and a dilated biliary tree with suspicion for distal bile duct obstruction. Procedure performed: ERCP with cholangiogram, sphincterotomy and balloon sweep Preoperative diagnoses: Ascending cholangitis, elevated bilirubin, abdominal pain, dilated common bile duct IV sedation per anesthesia: Estimated blood loss: Minimal. Procedure: After informed consent was obtained from the patient and after the risks benefits and complications including bleeding perforation and pancreatitis explained in detail the patient was brought into the endoscopy unit. The patient was placed in prone position and IV conscious sedation was administered by anesthesia under continuous monitoring. The Olympus side-viewing duodenoscope was then inserted into the mouth and esophagus intubated without any difficulty. The scope was gradually advanced into the stomach and duodenum, with multiple superficial antral ulcers noted in the stomach. The major papilla was identified without any difficulty, it had a diverticular association. The papilla was cannulated with a sphincterotome and a wire was passed into the common bile duct to the common hepatic duct. Cholangiogram was performed with injection of dye and was significant for a diffusely dilated bile duct with a filling defect in the distal duct. A 1 cm sphincterotomy was then performed using the sphincterotome. The sphincterotome was then exchanged over the wire for a balloon extractor which was serially inflated to 8.5 mm and 11.5 mm in the duct was swept. A large amount of debris, stones and pus was removed from the duct. The patient tolerated the procedure well. Impression: ERCP with cholangiogram, sphincterotomy and balloon sweep of the bile duct with removal of stones, debris and pus. Nonbleeding antral ulcers. Recommendations: The findings of this examination were discussed with the patient. Okay for liquid diet tonight and nothing by mouth after midnight. Continue on broad- spectrum antibiotic therapy. Protonix will be added for ulcers. Surgical service is following a cholecystectomy tomorrow.
[2019-12-27 16:52] LABS: Hepatitis B Core IgM Non-Reactive (Non-Reactive); Hepatitis B Surface Antigen Non-Reactive (Non-Reactive); Hepatitis C IgG Antibody Non-Reactive (Non-Reactive)
[2019-12-27] MEDS: PANTOPRAZOLE 40 MG/10 ML VIAL IVP SCH (16:53)
--- NOTE | 2019-12-27 16:56 | FL ---
EXAMINATION TYPE: FL ERCP DATE OF EXAM: 12/27/2019 CLINICAL HISTORY: Abnormal CT, biliary dilatation . TECHNIQUE: Fluoroscopy. COMPARISON: CT abdomen and pelvis from earlier today. FINDINGS: Fluoroscopic guidance was provided during ERCP procedure performed by Dr. Bertrand. A tota l of 68 seconds of fluoroscopic time was utilized during the procedure and 3 spot images are acquired . Images redemonstrate mild to moderate biliary dilatation. Please refer to procedure note for furthe r details as I was not present nor performed procedure. IMPRESSION: As Above.
--- NOTE | 2019-12-28 00:42 | P.CONS ---
History of Present Illness - Reason for Consult Consult date: 12/27/19 ascending cholangitis Requesting physician: Ander Ruvalcaba - Chief Complaint abd pain x 1 week - History of Present Illness Patient is a 64-year-old male presents to the hospital with chief complaints of abdominal and back pain patient symptom has been going on for about a week before he presented to the hospital and has been mostly pain in the right upper quadrant and the back area patient is she thought has been pain was due to her work-related patient has described the pain to be more of a dull aching to be sharp at times post in the right upper quadrant area with intensity almost under treatment with severity and associated fever and chills with the s ymptom had the patient present to the hospital patient complaining of some nausea but no vomiting and no diarrhea on arrival to the ER the patient did have a fever 100.1 degrees Fahrenheit patient did have a normal white count and did have elevated bilirubin of 7.1 UA has been significantly positive urine toxin was positive hepatitis panel has been negative as well as salazar PCR patient had did have a CT of abdominal pelvis which did shows dilated biliary tree distal common bile duct obstruction is suspected with dilated gallbladder patient has been evaluated by surgery and GI with plan for ERCP patient was started on vancomycin and Zosyn infectious disease was consulted for further demented antibiotic with concern for ascending cholangitis Review of Systems Positive point has been mentioned in HPI rest of the systems are negative Past Medical History Past Medical History: No Reported History History of Any Multi-Drug Resistant Organisms: None Reported Additional Past Surgical History / Comment(s): Sinus polyps removed, Broken Jaw repair Past Anesthesia/Blood Transfusion Reactions: No Reported Reaction Past Psychological History: No Psychological Hx Reported Smoking Status: Current every day smoker Past Alcohol Use History: None Reported Past Drug Use History: None Reported - Past Family History Father Family Medical History: No Reported History Medications and Allergies Home Medications Medication Instructions Recorded Confirmed Type Naproxen 500 mg PO DAILY PRN 09/08/18 12/27/19 History Albuterol Sulfate [Proair Hfa] 2 puff INHALATION RT-Q6H PRN 12/27/19 12/27/19 History Testosterone Cypionate 200 mg IM Q14D 12/27/19 12/27/19 History [Depo-Testosterone] Zolpidem [Ambien] 2.5 - 5 mg PO HS PRN 12/27/19 12/27/19 History buPROPion HCL [Wellbutrin SR] See Taper PO DAILY 12/27/19 12/27/19 History Allergies Allergy/AdvReac Type Severity Reaction Status Date / Time No Known Allergies Allergy Verified 12/27/19 08:07 Physical Exam Vitals: Vital Signs Temp Pulse Pulse Resp BP BP Pulse Ox 12/27/19 12:08 98.5 F 62 18 145/80 96 12/27/19 05:09 98.4 F 60 18 106/66 98 12/27/19 04:27 97.4 F L 66 18 139/88 97 12/27/19 03:58 69 18 143/87 97 12/27/19 02:04 100.1 F H 81 20 173/81 99 Intake and Output 12/26/19 12/27/19 12/27/19 22:59 06:59 14:59 Intake Total 100 Balance 100 Intake: Intake, IV Titration 100 Amount Piperacillin-Tazobactam 3 100 .375 gm In Sodium Chloride 0.9% 100 ml @ 25 mls/hr IVPB Q8H [facility] Rx#: [id number] Other: # Voids 1 Weight 81.5 kg GENERAL DESCRIPTION: Middle-aged male lying in bed, no distress. No tachypnea or accessory muscle of respiration use. HEENT: scleral icterus. Oral mucous membrane is dry. NECK: Trachea central, no thyromegaly. LUNGS: Unlabored breathing. Clear to auscultation anteriorly. No wheeze or crackle. HEART: S1, S2, regular rate and rhythm. ABDOMEN: Soft, mild right upper quadrant tenderness , guarding or rigidity EXTREMITIES: No edema of feet. SKIN: No rash, no masses palpable. NEUROLOGICAL: The patient is awake, alert, oriented x3, mood and affect normal. Results CBC & Chem 7: 12/27/19 02:45 12/27/19 02:45 Labs: Abnormal Lab Results - Last 24 Hours (Table) 12/27/19 12/27/19 12/27/19 Range/Units 02:45 02:45 03:20 MCV 102.7 H (80.0-100.0) fL Plt Count 109 L (150-450) k/uL Neutrophils # 9.3 H (1.3-7.7) k/uL Lymphocytes # 0.5 L (1.0-4.8) k/uL Sodium 134 L (137-145) mmol/L Glucose 122 H (74-99) mg/dL Total Bilirubin 7.1 H (0.2-1.3) mg/dL Conjugated Bilirubin (0.0-0.3) mg/dL Delta Bilirubin (0.0-0.2) mg/dL AST 117 H (17-59) U/L ALT 95 H (4-49) U/L Alkaline Phosphatase 581 H (38-126) U/L Urine Protein 1+ H (Negative) Urine Blood Trace H (Negative) Urine Bilirubin 3+ H (Negative) Ur Leukocyte Esterase Small H (Negative) Urine RBC 27 H (0-5) /hpf Urine Mucus Rare H (None) /hpf Urine Opiates Screen (NotDetected) Urine Cocaine Screen (NotDetected) U Marijuana (THC) Screen (NotDetected) 12/27/19 12/27/19 Range/Units 03:23 03:23 MCV (80.0-100.0) fL Plt Count (150-450) k/uL Neutrophils # (1.3-7.7) k/uL Lymphocytes # (1.0-4.8) k/uL Sodium (137-145) mmol/L Glucose (74-99) mg/dL Total Bilirubin 6.1 H (0.2-1.3) mg/dL Conjugated Bilirubin 3.8 H (0.0-0.3) mg/dL Delta Bilirubin 1.2 H (0.0-0.2) mg/dL AST (17-59) U/L ALT (4-49) U/L Alkaline Phosphatase (38-126) U/L Urine Protein (Negative) Urine Blood (Negative) Urine Bilirubin (Negative) Ur Leukocyte Esterase (Negative) Urine RBC (0-5) /hpf Urine Mucus (None) /hpf Urine Opiates Screen Detected H (NotDetected) Urine Cocaine Screen Detected H (NotDetected) U Marijuana (THC) Screen Detected H (NotDetected) Assessment and Plan Assessment: patient presented hospital right upper quadrant pain nausea this we did have evidence of jaundice right upper quadrant tenderness abnormal CT likely secondary to acute cholecystitis with choledocholithiasis and concern for ascending cholangitis likely need to cover for enteric gram-negative with a likely pathogen (1) Ascending cholangitis Current Visit: Yes Status: Acute Code(s): K83.09 - OTHER CHOLANGITIS SNOMED Code(s): 48764679 Plan: 1-Zosyn 3.7 g every 8hr to continue 2-discontinue vancomycin decrease risk of nephrotoxicity clinically less likely MRSA infection 3-IV fluids 4-await ERCP We will follow on clinical condition and cultures to further adjust medication if needed Thank you for this consultation we will follow the patient along with you Time with Patient: Greater than 30
[2019-12-28] MEDS: HYDROmorphone 0.5 MG/0.5 ML SYRINGE IVP PRN ×3 (04:50→20:56)
[2019-12-28] MEDS: PIPERACILLIN-TAZOBACTAM 3.375 GM in SODIUM CHLORIDE 0.9% 100 ML IVPB SCH ×3 (04:51→19:22)
[2019-12-28] MEDS: SODIUM CHLORIDE 0.9% 1,000 ML IV SCH ×3 (04:53→19:22)
[2019-12-28 06:32] LABS: Basophils % (A) 0 %; Eosinophils # (A) 0.1 k/uL (0-0.7); Eosinophils % (A) 1 %; HGB 14.3 gm/dL (13.0-17.5); Lymphocytes # (A) 0.8 k/uL (1.0-4.8); Lymphocytes % (A) 10 %; MCH 34.1 pg (25.0-35.0); MCHC 32.5 g/dL (31.0-37.0); MCV 104.8 fL (80.0-100.0); Macrocytosis Moderate; Mean Platelet Volume 10.4; Monocytes # (A) 0.6 k/uL (0-1.0); Monocytes % (A) 7 %; Neutrophils # (A) 6.3 k/uL (1.3-7.7); Neutrophils % (A) 79 %; Platelet Count 104 k/uL (150-450); RDW 15.1 % (11.5-15.5)
[2019-12-28 06:43] LABS: ALT 100 U/L (4-49); AST 111 U/L (17-59); African American GFR (CKD) >90 (>60 ml/min/1.73 sqM); Albumin 2.7 g/dL (3.5-5.0); Alkaline Phosphatase 399 U/L (38-126); Anion Gap 7 mmol/L; Blood Urea Nitrogen 17 mg/dL (9-20); Calcium 7.7 mg/dL (8.4-10.2); Carbon Dioxide 27 mmol/L (22-30); Chloride 102 mmol/L (98-107); Glucose 94 mg/dL (74-99); Non-African American GFR(CKD) >90 (>60 ml/min/1.73 sqM); Potassium 3.9 mmol/L (3.5-5.1); Sodium 136 mmol/L (137-145); Total Bilirubin 4.6 mg/dL (0.2-1.3); Total Protein 5.2 g/dL (6.3-8.2)
--- NOTE | 2019-12-28 08:16 | P.PN ---
Subjective This is a pleasant 64 years old male with no significant past medical history. He is a patient of Dr. Segovia presents because of back pain and fever. His symptoms started about 1 week ago with right middle back pain just below chest, comes and go, colicky/sharp about 10 over 10 on presentation currently 3/10. Associated with RUQ pain and tenderness no rebound tenderness. No nausea vomiting, he has constipation for 2 days. No chest pain or dyspnea. He smokes about 1 pack per day, occasional alcohol, he admits using substances cocaine marijuana but not her wound is said he uses a substance called kratum. Patient states he uses Wellbutrin for smoking cessation. He denies depression or suicidal ideation Fever on admission with 100.1, rest of vitals are stable, blood pressure this morning 106/66. Left showing no leukocytosis with WBC of 10.4, rest of CBC is unremarkable. Sodium 134, potassium 4.4, creatinine normal 0.4, glucose 122, bilirubin is elevated to 7.1, 6.1, AST high at 117, ALT high 95, UA is not suspicious of infection, urine drug screen is positive for opiates, cocaine and marijuana. Hepatitis a IgM antibodies are negative on admission. CT of the abdomen and pelvis with IV contrast: Dilated biliary tract both intra- and extra-hepatic. Coming bile duct measures 1.5 cm, dilated gallbladder, 5 cm in diameter In the emergency room patient was receiving normal saline bolus of 1 L and started on 100 mL/h, started on Zosyn, vancomycin pain management surgery was placed for GI and surgery service 12/28/2019 Patient in bed with no distress. Abdominal and back pain has resolved, no more nausea vomiting. Vitals are stable with no fever. CBC and BMP are unremarkable, liver enzymes are stable. The Gonzalez is trending down to 4.6 Yesterday the patient went to ERCP with stone removal and splenectomy Today patient is planned for laparoscopic cholecystectomy by surgical team Review of Systems CONSTITUTIONAL: No fever, no malaise, no fatigue. HEENT: No recent visual problems or hearing problems. Denied any sore throat. CARDIOVASCULAR: No orthopnea, PND, no palpitations, no syncope. PULMONARY: No shortness of breath, no cough, no hemoptysis. GASTROINTESTINAL: No diarrhea, no nausea, no vomiting,Normoactive bowel sounds. NEUROLOGICAL: No headaches, no weakness, no numbness. HEMATOLOGICAL: Denies any bleeding or petechiae. GENITOURINARY: Denies any burning micturition, frequency, or urgency. MUSCULOSKELETAL/RHEUMATOLOGICAL: Denies any joint pain, swelling, or any muscle pain. ENDOCRINE: Denies any polyuria or polydipsia. Objective - Vital Signs Vital signs: Vital Signs Temp 98.3 F 12/28/19 04:25 Pulse 52 L 12/28/19 04:25 Resp 18 12/28/19 04:25 BP 126/72 12/28/19 04:25 Pulse Ox 98 12/28/19 04:25 Intake & Output 12/27/19 12/28/19 12/28/19 18:59 06:59 18:59 Intake Total 1900 100 Balance 1900 100 Intake: IV 950 Intake, IV Titration 950 100 Amount Piperacillin-Tazobactam 3 100 100 .375 gm In Sodium Chloride 0.9% 100 ml @ 25 mls/hr IVPB Q8H [facility] Rx#: [id number] Sodium Chloride 0.9% 1, 600 000 ml @ 100 mls/hr IV . Q10H [facility] Rx#:[id number] Vancomycin 1,500 mg In 250 Sodium Chloride 0.9% 250 ml @ 125 mls/hr IVPB Q8H [facility] Rx#:[id number] Other: Voiding Method Toilet # Voids 1 - Exam GENERAL: The patient is alert and oriented x3, not in any acute distress. Well developed, well nourished. HEENT: Pupils are round and equally reacting to light. EOMI. No scleral icterus. No conjunctival pallor. Normocephalic, atraumatic. No pharyngeal erythema. No thyromegaly. CARDIOVASCULAR: S1 and S2 present. No murmurs, rubs, or gallops. PULMONARY: Chest is clear to auscultation, no wheezing or crackles. ABDOMEN: Soft, nontender, nondistended, normoactive bowel sounds. No palpable organomegaly. MUSCULOSKELETAL: No joint swelling or deformity. EXTREMITIES: No cyanosis, clubbing, or pedal edema. NEUROLOGICAL: Gross neurological examination did not reveal any focal deficits. SKIN: No rashes. no petechiae. - Labs CBC & Chem 7: 12/28/19 05:44 12/28/19 05:44 Labs: Abnormal Lab Results - Last 24 Hours (Table) 12/28/19 12/28/19 Range/Units 05:44 05:44 RBC 4.20 L (4.30-5.90) m/uL MCV 104.8 H (80.0-100.0) fL Plt Count 104 L (150-450) k/uL Lymphocytes # 0.8 L (1.0-4.8) k/uL Sodium 136 L (137-145) mmol/L Calcium 7.7 L (8.4-10.2) mg/dL Total Bilirubin 4.6 H (0.2-1.3) mg/dL AST 111 H (17-59) U/L ALT 100 H (4-49) U/L Alkaline Phosphatase 399 H (38-126) U/L Total Protein 5.2 L (6.3-8.2) g/dL Albumin 2.7 L (3.5-5.0) g/dL Microbiology - Last 24 Hours (Table) 12/27/19 02:45 Blood Culture Gram Stain - Preliminary Blood Blood Culture - Preliminary Escherichia coli Group D Enterococcus 12/27/19 02:45 Blood Culture - Final Blood Assessment and Plan Assessment: acute ascending cholangitis, Dilated intra-and extrahepatic biliary tract and dilated gallbladder about 5 cm.status post ERCP, synovectomy and stone removal. Mostly associated with gallstones Substance abuse including opiates, cocaine and marijuana Plan: This is a pleasant 64 years old male who presents with ascending cholangitis with gallstone disease.Continue with antibiotics. Follow-up culture results. GI and surgery consult. Continue with IV fluids. Pain management. infectious disease. laparoscopic cholecystectomy on 12/27 Patient is counseled about substance abuse avoidance. Labs and medication were reviewed.. Continue same treatment. Continue with symptomatic treatment. Resume home medication. Monitor lytes and vitals. DVT and GI prophylaxis. Further recommendations of the clinical course of the patient DVT prophylaxis: Subcutaneou Lovenox GI Prophylaxis: Pepcid Prognosis is guarded
[2019-12-28] MEDS: FAMOTIDINE 20 MG/2 ML VIAL IV SCH (08:26)
[2019-12-28] MEDS: PANTOPRAZOLE 40 MG/10 ML VIAL IVP SCH (08:26)
[2019-12-28] MEDS: ENOXAPARIN 40 MG/0.4 ML SYRINGE SQ SCH (08:38)
[2019-12-28] MEDS ORDERED: IV FLUID CONTINUATION 1,000 ML IV ONE (08:42)
[2019-12-28] MEDS ORDERED: ONDANSETRON 4 MG/2 ML VIAL IVP ONE (08:48)
[2019-12-28] MEDS ORDERED: DEXAMETHASONE SOD PHOS (MDV) 100 MG/10 ML VIAL IVP ONE (08:48)
[2019-12-28] MEDS ORDERED: HEPARIN SODIUM,PORCINE 5,000 UNIT/ML 1 ML VIAL SQ ONE (10:00)
[2019-12-28] MEDS ORDERED: ROCURONIUM BROMIDE 10 MG/ML 5 ML VIAL IV ONE (10:02)
[2019-12-28] MEDS ORDERED: fentaNYL (PF) 50 MCG/ML 2 ML AMP ONE (10:02)
[2019-12-28] MEDS ORDERED: NEOSTIGMINE 1 MG/ML 10 ML VIAL ONE (10:02)
[2019-12-28] MEDS ORDERED: GLYCOPYRROLATE 0.2 MG/ML 2 ML VIAL ONE (10:02)
[2019-12-28] MEDS ORDERED: PROPOFOL 10 MG/ML 20 ML VIAL IV ONE (10:02)
[2019-12-28] MEDS ORDERED: SUCCINYLCHOLINE CHLORIDE 100 MG/5 ML SYR IV ONE (10:02)
[2019-12-28] MEDS ORDERED: LIDOCAINE 1% INJ 10MG/ML (20 ML MDV) ONE (10:02)
[2019-12-28] MEDS ORDERED: BUPIVACAIN-EPI 0.25%-1:200,000 30 ML VIAL SQ ONE ×2 (10:04→10:21)
[2019-12-28] MEDS ORDERED: LACTATED RINGERS 1,000 ML IV ONE (10:44)
--- NOTE | 2019-12-28 10:53 | P.OP ---
Date of Procedure: 12/28/19 Preoperative Diagnosis: Cholecystitis Cholelithiasis Postoperative Diagnosis: Cholecystitis Cholelithiasis Procedure(s) Performed: Laparoscopic cholecystectomy Anesthesia: GRACE Surgeon: Ander Ruvalcaba Estimated Blood Loss (ml): 10 Pathology: other (Gallbladder) Condition: stable Disposition: PACU Description of Procedure: The patient was placed on the operating table. The patient received a general endotracheal tube anesthesia. The patients abdomen was prepped and draped in the usual sterile fashion. Through an infraumbilical stab incision, the fascia of the anterior abdominal wall was grasped with a pair of Kochers and then the Veress needle was placed in the peritoneal cavity. Position of the Veress needle was confirmed with positive drop test. The abdomen was then insufflated. After adequate insufflation, the 10 mm trocar was placed in the peritoneal cavity. Following this the laparoscope was placed in the peritoneal cavity. The patient was placed in the head-up, right side up position and then a 5 mm trocar was placed in the right lateral and right subcostal position under direct visualization. A 8 mm trocar was placed in the epigastric position. The gallbladder was grasped in the fundus and infundibulum. Traction on the gallbladder was placed in the lateral and the cephalad positions. The triangle of Calot was visualized.. The cystic duct was bluntly dissected until the union of the cystic duct and common bile duct w as seen. A critical view of safety was achieved. The cystic duct was then divided and sealed with the Harmonic scissors. A PDS Endoloop was then placed throughout the cystic duct stump. The cystic artery divided and sealed with the Harmonic scissors. The gallbladder was then removed from the liver bed using Harmonic scissors. The gallbladder was then extracted through the epigastric port site. Operative field was checked for any bleeding spots and Harmonic scissors was used to coagulate the liver bed. The abdomen was irrigated. The trocars were removed. The skin was closed using interrupted 3-0 Vicryl suture. Dermabond dressing were applied. The patient tolerated the procedure well.
[2019-12-28] MEDS ORDERED: HYDROmorphone 1 MG/ML 1 ML SYRINGE IVP ONE ×2 (11:00→11:07)
[2019-12-28] MEDS ORDERED: KETOROLAC 30 MG/ML 1 ML VIAL IVP ONE (11:03)
[2019-12-28] MEDS ORDERED: HYDROmorphone 0.5 MG/0.5 ML SYRINGE IVP ONE (11:35)
[2019-12-28] MEDS ORDERED: VANCOMYCIN TROUGH DUE 1 EACH MISC MISCELLANE ONE (12:00)
--- NOTE | 2019-12-28 17:29 | PN ---
PROGRESS NOTE DATE OF SERVICE: 12/27/2009 Patient is a 64-year-old male who was admitted to hospital with ascending cholangitis and elevated LFTs and jaundice. He underwent an ERCP by Dr. Bertrand yesterday with biliary sphincterotomy and CBD stone extraction with purulent material that was seen draining to the ampulla. The patient just underwent laparoscopic cholecystectomy by Dr. Ruvalcaba and is a quite sedated. As per the nursing staff. no new complaints. PHYSICAL EXAMINATION: He is quite sleepy. VITAL SIGNS: Stable. Blood pressure 130/77, pulse is 60, temperature 98.5. HEENT: Examination is unremarkable. Conjunctivae are pink. Sclerae are less likely icteric. Oral cavity no lesions. NECK: No JVD or lymph node enlargement. CHEST: Clear to auscultation. ABDOMEN: Not examined. EXTREMITIES: No pedal edema. NEURO: He is very sleepy. LABS: From today WBC is 8, hemoglobin 14.3, platelets 104, bilirubin is down to 4.6, ALT and AST are 111 and 100 respectively. Alkaline phosphatase is 339. IMPRESSION: 1. Ascending cholangitis secondary to CBD stone and CBD sludge, status post ERCP with biliary sphincterotomy and balloon stone extraction. Presently on antibiotics doing well. 2. Status post laparoscopic cholecystectomy, presently in the postop area undergoing recovery. RECOMMENDATIONS: Continue with broad-spectrum antibiotics. Repeat labs in the morning. Will follow with you closely. Thank you for this consultation. MMODL / IJN: [id number] /
--- NOTE | 2019-12-28 20:27 | PN ---
PROGRESS NOTE DATE OF SERVICE: 12/28/2019 REASON FOR FOLLOWUP: Sepsis and cholangitis and bacteremia. INTERVAL HISTORY: The patient clinical course was complicated by development of bacteremia. The patient showing a positive blood culture with group D Enterococcus and E coli. The patient as of this morning is afebrile, still complaining of discomfort to the right upper quadrant area. No chest pain, shortness of breath or cough. No diarrhea. PHYSICAL EXAMINATION: Blood pressure 130/77, pulse of 63, temperature 98.5. He is 96% on room air. General description: The patient is a middle-aged male lying in bed in no distress. Respiratory system: Unlabored breathing, clear to auscultation anteriorly. Heart S1, S2. Regular rate and rhythm. Abdomen soft, discomfort and tenderness in the right upper quadrant area. LABS: Hemoglobin is 14.8, white count 8.0. BUN of 17, creatinine 0.79. Blood culture enterococcus E coli. DIAGNOSTIC IMPRESSION AND PLAN: Patient with Enterococcus E coli bacteremia secondary to acute cholecystitis with ascending cholangitis in this patient who is status post ERCP followed by laparoscopic cholecystectomy. Patient is covered with Zosyn. Adjusting antibiotic further on the basis of the culture report and monitor clinical course closely. MMODL / IJN: [id number] /
[2019-12-29] MEDS: HYDROmorphone 0.5 MG/0.5 ML SYRINGE IVP PRN ×2 (03:17→18:30)
[2019-12-29] MEDS: SODIUM CHLORIDE 0.9% 1,000 ML IV SCH ×2 (03:18→14:02)
[2019-12-29] MEDS: PIPERACILLIN-TAZOBACTAM 3.375 GM in SODIUM CHLORIDE 0.9% 100 ML IVPB SCH ×3 (03:21→19:43)
[2019-12-29 06:37] LABS: Basophils % (A) 0 %; Eosinophils # (A) 0.1 k/uL (0-0.7); Eosinophils % (A) 1 %; HCT 47.1 % (39.0-53.0); HGB 15.3 gm/dL (13.0-17.5); Lymphocytes # (A) 0.9 k/uL (1.0-4.8); Lymphocytes % (A) 8 %; MCH 34.2 pg (25.0-35.0); MCHC 32.5 g/dL (31.0-37.0); MCV 105.2 fL (80.0-100.0); Macrocytosis Moderate; Mean Platelet Volume 10.6; Monocytes # (A) 0.5 k/uL (0-1.0); Monocytes % (A) 4 %; Neutrophils # (A) 10.2 k/uL (1.3-7.7); Neutrophils % (A) 87 %; Platelet Count 128 k/uL (150-450); RBC 4.47 m/uL (4.30-5.90); RDW 14.7 % (11.5-15.5); WBC 11.8 k/uL (3.8-10.6)
[2019-12-29 06:47] LABS: ALT 74 U/L (4-49); AST 55 U/L (17-59); African American GFR (CKD) >90 (>60 ml/min/1.73 sqM); Alkaline Phosphatase 389 U/L (38-126); Anion Gap 7 mmol/L; Blood Urea Nitrogen 25 mg/dL (9-20); Calcium 8.1 mg/dL (8.4-10.2); Carbon Dioxide 26 mmol/L (22-30); Chloride 102 mmol/L (98-107); Glucose 114 mg/dL (74-99); Non-African American GFR(CKD) >90 (>60 ml/min/1.73 sqM); Potassium 4.4 mmol/L (3.5-5.1); Sodium 135 mmol/L (137-145); Total Protein 5.7 g/dL (6.3-8.2)
[2019-12-29] MEDS: ENOXAPARIN 40 MG/0.4 ML SYRINGE SQ SCH (08:03)
[2019-12-29] MEDS: PANTOPRAZOLE 40 MG/10 ML VIAL IVP SCH (08:04)
[2019-12-29] MEDS: NICOTINE 21MG/24HR PATCH TRANSDERM SCH (08:25)
[2019-12-29] MEDS: HYDROcodone/APAP 5-325MG 1 EACH TAB PO PRN ×3 (08:25→23:31)
--- NOTE | 2019-12-29 12:52 | P.PN ---
Subjective This is a pleasant 64 years old male with no significant past medical history. He is a patient of Dr. Segovia presents because of back pain and fever. His symptoms started about 1 week ago with right middle back pain just below chest, comes and go, colicky/sharp about 10 over 10 on presentation currently 3/10. Associated with RUQ pain and tenderness no rebound tenderness. No nausea vomiting, he has constipation for 2 days. No chest pain or dyspnea. He smokes about 1 pack per day, occasional alcohol, he admits using substances cocaine marijuana but not her wound is said he uses a substance called kratum. Patient states he uses Wellbutrin for smoking cessation. He denies depression or suicidal ideation Fever on admission with 100.1, rest of vitals are stable, blood pressure this morning 106/66. Left showing no leukocytosis with WBC of 10.4, rest of CBC is unremarkable. Sodium 134, potassium 4.4, creatinine normal 0.4, glucose 122, bilirubin is elevated to 7.1, 6.1, AST high at 117, ALT high 95, UA is not suspicious of infection, urine drug screen is positive for opiates, cocaine and marijuana. Hepatitis a IgM antibodies are negative on admission. CT of the abdomen and pelvis with IV contrast: Dilated biliary tract both intra- and extra-hepatic. Coming bile duct measures 1.5 cm, dilated gallbladder, 5 cm in diameter In the emergency room patient was receiving normal saline bolus of 1 L and started on 100 mL/h, started on Zosyn, vancomycin pain management surgery was placed for GI and surgery service 12/28/2019 Patient in bed with no distress. Abdominal and back pain has resolved, no more nausea vomiting. Vitals are stable with no fever. CBC and BMP are unremarkable, liver enzymes are stable. The Gonzalez is trending down to 4.6 Yesterday the patient went to ERCP with stone removal and splenectomy Today patient is planned for laparoscopic cholecystectomy by surgical team 12/29/2019 Patient with no nausea vomiting, his RUQ abdominal and back pain are improved. Pain control with [facility] Vital signs stable. WBC is elevated 11.8 K, rest of CBC, electrolytes and creatinine are within normal. Patient bilirubin is trending down to 2.0, as well as liver enzymes. Urinary culture growing E. coli and group D enterococcus, final cultures pending Patient remains on Zosyn and IV on the case. Objective - Vital Signs Vital signs: Vital Signs Temp 98.3 F 12/29/19 04:21 Pulse 52 L 12/29/19 04:21 Resp 18 12/29/19 04:21 BP 152/83 12/29/19 04:21 Pulse Ox 96 12/29/19 04:21 Intake & Output 12/28/19 12/29/19 12/29/19 18:59 06:59 18:59 Intake Total 1300 1595 Output Total 10 Balance 1290 1595 Weight 81.5 kg Intake: IV 800 Intake, IV Titration 500 500 Amount Piperacillin-Tazobactam 3 100 .375 gm In Sodium Chloride 0.9% 100 ml @ 25 mls/hr IVPB Q8H [facility] Rx#: [id number] Sodium Chloride 0.9% 1, 500 400 000 ml @ 100 mls/hr IV . Q10H [facility] Rx#:[id number] Oral 1095 Output: Estimated Blood Loss 10 Other: Voiding Method Toilet # Voids 2 - Exam GENERAL: The patient is alert and oriented x3, not in any acute distress. Well developed, well nourished. HEENT: Pupils are round and equally reacting to light. EOMI. No scleral icterus. No conjunctival pallor. Normocephalic, atraumatic. No pharyngeal erythema. No thyromegaly. CARDIOVASCULAR: S1 and S2 present. No murmurs, rubs, or gallops. PULMONARY: Chest is clear to auscultation, no wheezing or crackles. ABDOMEN: Soft, nontender, nondistended, normoactive bowel sounds. No palpable organomegaly. MUSCULOSKELETAL: No joint swelling or deformity. EXTREMITIES: No cyanosis, clubbing, or pedal edema. NEUROLOGICAL: Gross neurological examination did not reveal any focal deficits. SKIN: No rashes. no petechiae. - Labs CBC & Chem 7: 12/29/19 06:05 12/29/19 06:05 Labs: Abnormal Lab Results - Last 24 Hours (Table) 12/29/19 12/29/19 Range/Units 06:05 06:05 WBC 11.8 H (3.8-10.6) k/uL MCV 105.2 H (80.0-100.0) fL Plt Count 128 L (150-450) k/uL Neutrophils # 10.2 H (1.3-7.7) k/uL Lymphocytes # 0.9 L (1.0-4.8) k/uL Sodium 135 L (137-145) mmol/L BUN 25 H (9-20) mg/dL Glucose 114 H (74-99) mg/dL Calcium 8.1 L (8.4-10.2) mg/dL Total Bilirubin 2.0 H (0.2-1.3) mg/dL ALT 74 H (4-49) U/L Alkaline Phosphatase 389 H (38-126) U/L Total Protein 5.7 L (6.3-8.2) g/dL Albumin 3.0 L (3.5-5.0) g/dL Microbiology - Last 24 Hours (Table) 12/27/19 02:45 Blood Culture Gram Stain - Preliminary Blood Blood Culture - Preliminary Escherichia coli Group D Enterococcus Assessment and Plan Assessment: acute ascending cholangitis, Dilated intra-and extrahepatic biliary tract and dilated gallbladder about 5 cm.status post ERCP, synovectomy and stone removal. Mostly associated with gallstones Substance abuse including opiates, cocaine and marijuana Plan: This is a pleasant 64 years old male who presents with ascending cholangitis with gallstone disease.Continue with antibiotics. Follow-up culture results. GI and surgery consult. Continue with IV fluids. Pain management. infectious disease. laparoscopic cholecystectomy on 12/27 Patient is counseled about substance abuse avoidance. Labs and medication were reviewed.. Continue same treatment. Continue with symptomatic treatment. Resume home medication. Monitor lytes and vitals. DVT and GI prophylaxis. Further recommendations of the clinical course of the patient DVT prophylaxis: Subcutaneou Lovenox GI Prophylaxis: Pepcid Prognosis is guarded
--- NOTE | 2019-12-29 13:04 | P.PN ---
Subjective Progress Note Date: 12/29/19 CHIEF COMPLAINT: Cholecystitis HISTORY OF PRESENT ILLNESS: Patient is status post laparoscopic cholecystectomy. Patient states his pain is tolerable. Tolerating diet without nausea or vomiting. Labs are improving. PHYSICAL EXAM: VITAL SIGNS: Reviewed. GENERAL: Well-developed in no acute distress. HEENT: Bilateral sclera icterus. Extraocular movements grossly intact. Moist buccal mucosa. Head is atraumatic, normocephalic. ABDOMEN: Soft. Nondistended. Surgical sites clean dry and intact. NEUROLOGIC: Alert and oriented. Cranial nerves II through XII grossly intact. ASSESSMENT: 1. Abdominal pain 2. Ascending cholangitis 3. Hyperbilirubinemia PLAN: Patient is stable for discharge home today. Will defer to internal medicine Nurse practitioner note has been reviewed by physician. Signing provider agrees with the documented findings, assessment, and plan of care. Objective - Vital Signs Vital signs: Vital Signs Temp 98.3 F 12/29/19 04:21 Pulse 52 L 12/29/19 04:21 Resp 18 12/29/19 04:21 BP 152/83 12/29/19 04:21 Pulse Ox 96 12/29/19 04:21 Intake & Output 12/28/19 12/29/19 12/29/19 18:59 06:59 18:59 Intake Total 1300 1595 Output Total 10 Balance 1290 1595 Weight 81.5 kg Intake: IV 800 Intake, IV Titration 500 500 Amount Piperacillin-Tazobactam 3 100 .375 gm In Sodium Chloride 0.9% 100 ml @ 25 mls/hr IVPB Q8H [facility] Rx#: [id number] Sodium Chloride 0.9% 1, 500 400 000 ml @ 100 mls/hr IV . Q10H [facility] Rx#:[id number] Oral 1095 Output: Estimated Blood Loss 10 Other: Voiding Method Toilet # Voids 2 - Labs CBC & Chem 7: 12/29/19 06:05 12/29/19 06:05 Labs: Abnormal Lab Results - Last 24 Hours (Table) 12/29/19 12/29/19 Range/Units 06:05 06:05 WBC 11.8 H (3.8-10.6) k/uL MCV 105.2 H (80.0-100.0) fL Plt Count 128 L (150-450) k/uL Neutrophils # 10.2 H (1.3-7.7) k/uL Lymphocytes # 0.9 L (1.0-4.8) k/uL Sodium 135 L (137-145) mmol/L BUN 25 H (9-20) mg/dL Glucose 114 H (74-99) mg/dL Calcium 8.1 L (8.4-10.2) mg/dL Total Bilirubin 2.0 H (0.2-1.3) mg/dL ALT 74 H (4-49) U/L Alkaline Phosphatase 389 H (38-126) U/L Total Protein 5.7 L (6.3-8.2) g/dL Albumin 3.0 L (3.5-5.0) g/dL Microbiology - Last 24 Hours (Table) 12/27/19 02:45 Blood Culture Gram Stain - Preliminary Blood Blood Culture - Preliminary Escherichia coli Group D Enterococcus
--- NOTE | 2019-12-29 15:41 | PN ---
PROGRESS NOTE DATE OF DICTATION: 12/29/2019 This patient is a 64-year-old pleasant white male admitted to the hospital with ascending cholangitis. He underwent ERCP by Dr. Bertrand 2 days ago and was noted to have CBD stones, which were extracted. He is doing much better. He had gallbladder surgery yesterday by Dr. Ruvalcaba. Today he is doing well, on a clear liquid diet, tolerating well. No abdominal pain. No nausea or vomiting. PHYSICAL EXAMINATION: Appears comfortable. No apparent distress. VITAL SIGNS: Stable. Blood pressure is 152/83, pulse rate 52, temperature 98.3. HEENT examination unremarkable. Conjunctivae pink. Sclerae anicteric. Oral cavity no lesions. NECK: No JVD or lymph node enlargement. CHEST: Clear to auscultation. HEART: Regular rate and rhythm. ABDOMEN: Soft. Bowel sounds are positive. No organomegaly. EXTREMITIES: No pedal edema. SKIN: No rashes. NEUROLOGIC: Alert and oriented x3. No focal deficits. LABS: WBC 11.8, hemoglobin 15.3, platelets 128. Bilirubin is down to 2. AST and ALT are 55 and 74, respectively; alkaline phosphatase 389. IMPRESSION: 1. Ascending cholangitis and elevated liver function tests and jaundice, status post endoscopic retrograde cholangiopancreatography with biliary sphincterotomy and balloon stone extraction. Presently on broad-spectrum antibiotics, doing well. 2. Status post laparoscopic cholecystectomy yesterday. 3. Elevated liver function tests, gradually improving. RECOMMENDATIONS: 1. Continue with antibiotics. 2. Advance diet as tolerated. 3. Monitor LFTs closely. 4. Patient can follow up with Dr. Bertrand in 2 weeks following discharge from the hospital. Thank you for this consultation. MMODL / IJN: [id number] /
--- NOTE | 2019-12-29 17:26 | PN ---
PROGRESS NOTE DATE OF SERVICE: 12/29/2019 REASON FOR FOLLOWUP: Bacteremia and ascending cholangitis. INTERVAL HISTORY: Patient is currently afebrile. The patient's abdominal pain is currently controlled. The patient denies having any chest pain or shortness of breath or cough and no diarrhea. PHYSICAL EXAMINATION: Blood pressure is 150/83 with a pulse of 62, temperature 98.3, he is 96% on room air. General description is a middle-aged male, lying in bed in no distress. RESPIRATORY SYSTEM: Unlabored breathing, clear to auscultation anteriorly. HEART: S1, S2. Regular rate and rhythm. ABDOMEN: Soft, tenderness. LABS: Hemoglobin is 15.3, white count of 11.8, creatinine 0.79. Culture has been finalized with E coli Enterococcus, patient Enterobacter sensitive to Zosyn. DIAGNOSTIC IMPRESSION AND PLAN: Patient with polymicrobial bacteremia, source is not cholangitis in this patient who did have a CBD stone, status post ERCP followed by cholecystectomy. In view of the bacteremia, C diff infection to keep the patient on Zosyn over the weekend, before a switch to oral, blood cultures repeat to document clearance of bacteremia and continue supportive care. MMODL / IJN: [id number] /
[2019-12-30] MEDS: PIPERACILLIN-TAZOBACTAM 3.375 GM in SODIUM CHLORIDE 0.9% 100 ML IVPB SCH ×3 (04:17→20:50)
[2019-12-30] MEDS: SODIUM CHLORIDE 0.9% 1,000 ML IV SCH ×2 (05:16→14:57)
[2019-12-30 07:03] LABS: Basophils % (A) 0 %; Eosinophils # (A) 0.1 k/uL (0-0.7); Eosinophils % (A) 1 %; HCT 46.7 % (39.0-53.0); HGB 15.2 gm/dL (13.0-17.5); Lymphocytes # (A) 0.8 k/uL (1.0-4.8); Lymphocytes % (A) 10 %; MCH 34.2 pg (25.0-35.0); MCHC 32.7 g/dL (31.0-37.0); MCV 104.6 fL (80.0-100.0); Macrocytosis Moderate; Mean Platelet Volume 10.3; Monocytes # (A) 0.4 k/uL (0-1.0); Monocytes % (A) 5 %; Neutrophils # (A) 6.7 k/uL (1.3-7.7); Neutrophils % (A) 82 %; Platelet Count 131 k/uL (150-450); RBC 4.46 m/uL (4.30-5.90); RDW 14.8 % (11.5-15.5); WBC 8.1 k/uL (3.8-10.6)
[2019-12-30] MEDS: ENOXAPARIN 40 MG/0.4 ML SYRINGE SQ SCH (08:57)
[2019-12-30] MEDS: NICOTINE 21MG/24HR PATCH TRANSDERM SCH (08:57)
[2019-12-30] MEDS: PANTOPRAZOLE 40 MG/10 ML VIAL IVP SCH (08:57)
--- NOTE | 2019-12-30 10:32 | P.PN ---
Progress Note - Text Progress Note Date: 12/30/19 The patient feels well. He is asked him to home. On exam is lesser stable. His abdomen soft. Incision sites clean and intact. Status post post ectomy for cholelithiasis choledocholithiasis. Patient did well. He will he will be discharged home today.
[2019-12-30] MEDS: HYDROcodone/APAP 5-325MG 1 EACH TAB PO PRN ×3 (11:27→23:56)
--- NOTE | 2019-12-30 13:01 | PN ---
PROGRESS NOTE DATE OF SERVICE: December 30, 2019 Patient is a 64-year-old pleasant white male admitted to the hospital with ascending cholangitis and gallstones. He underwent ERCP by Dr. Bertrand three days ago and the CBD stones were removed. He subsequently underwent gallbladder surgery by Dr. Ruvalcaba. Overall he is feeling better. No abdominal pain. No nausea or vomiting. No fever, chills, or night sweats. PHYSICAL EXAMINATION: Blood pressure is 177/94, pulse 57, temperature 98.7. HEENT examination unremarkable. Conjunctivae pink. Sclerae anicteric. Oral cavity no lesions. NECK: No JVD or lymph node enlargement. CHEST: Clear to auscultation. HEART: Regular rate and rhythm. ABDOMEN: Soft, nontender, nondistended. Bowel sounds are positive. No organomegaly. EXTREMITIES: No pedal edema. NEUROLOGIC: Alert and oriented x3. No focal deficits. LABS: From today CBC is within normal limits. CMP was not done. IMPRESSION: 1. Ascending cholangitis status post ERCP with CBD stone removal as described above. 2. Status post gallbladder surgery for gallstones. RECOMMENDATIONS: 1. Continue with broad-spectrum antibiotics. 2. Advance diet as tolerated. 3. Patient can be discharged home from GI standpoint. Thank you for this consultation. MMODL / IJN: [id number] /
[2019-12-30] MEDS: HYDROmorphone 0.5 MG/0.5 ML SYRINGE IVP PRN (14:48)
--- NOTE | 2019-12-30 17:43 | PN ---
PROGRESS NOTE DATE OF SERVICE: 12/30/2019 This 64-year-old gentleman admitted with acute ascending cholangitis. The patient also had dilated intra and extrahepatic biliary tract. The patient underwent ERCP and stone extraction. The patient also underwent laparoscopic cholecystectomy. After surgery the patient closely monitored. Because of concerns of septicemia, the patient is on IV antibiotics. The blood cultures done on December 26 showed E coli enterococcus faecium and Enterobacter aerogenes. Patient closely monitored. PAST MEDICAL HISTORY: Reviewed. REVIEW OF SYSTEMS: CARDIOVASCULAR SYSTEM: No angina or palpitations. RESPIRATORY: As mentioned earlier. GI: As mentioned earlier. : No dysuria. NERVOUS SYSTEM: No numbness or weakness. CURRENT MEDICATIONS: 1. [place] 5 mg q.6h p.r.n. 2. Ventolin 2.5 q.6 p.r.n. 3. Lovenox 40 mg subcu daily. 4. Dilaudid p.r.n. 5. Narcan 0.2 q.2 p.r.n. 6. ( ) 14 daily. 7. Protonix 40 mg daily. 8. Zosyn 3.375 IV q.8. 9. Ambien 2.5 mg q.h.s. p.r.n. PHYSICAL EXAM: Patient is alert, oriented x2. Pulse 60, blood pressure 189/90, respiration 17, temperature 98.1, pulse ox 94% on room air. HEENT: Conjunctivae normal. Oral mucosa moist. NECK: No jugular venous distention. No lymph node enlargement. CARDIOVASCULAR: S1, S2. RESPIRATORY: Diminished breath sounds at the bases. A few scattered rhonchi and crackles. Expiratory wheezing also. ABDOMEN: Soft. Mild diffuse tenderness status post cholecystectomy. LEGS: No edema, no swelling. NERVOUS SYSTEM: No focal deficits. LABS: At this time shows WBC 8.2, hemoglobin 15.2, and C-reactive protein is 124.2. ASSESSMENT: 1. Acute cholecystitis with possible ascending cholangitis, status post laparoscopic cholecystectomy with sepsis, present on admission. 2. Escherichia coli enterococcus faecium and Enterobacter aerogenes grown from the culture. 3. Elevated AST/ALT because of obstructive jaundice. 4. Increased WBC. 5. Thrombocytopenia. 6. History of continued ongoing nicotine dependence. 7. History of fracture, mandibular. 8. Cholelithiasis. 9. History of substance abuse including opiates, cocaine, marijuana. 10.FULL CODE. RECOMMENDATIONS AND DISCUSSION: In this 64-year-old gentleman who presented with multiple complex medical issues, at this time I recommend to continue current management and we will continue with IV antibiotics, repeat cultures. Otherwise, DVT prophylaxis. We will cut down the IV fluids. Overall prognosis extremely guarded because of multiple complex medical issues. Will recommend repeat labs also. Further recommendations to follow. KATHERINE / LEORAN: [id number] /
--- NOTE | 2019-12-30 19:55 | PN ---
PROGRESS NOTE DATE OF SERVICE: 12/30/2019 REASON FOR FOLLOWUP: Bacteremia secondary to cholangitis and cholecystitis. INTERVAL HISTORY: The patient is currently afebrile. Patient is breathing comfortably. He has been having pain in the right upper quadrant area, especially with deep breathing, but no worsening. No nausea, vomiting. Did have a bowel movement. PHYSICAL EXAMINATION: Blood pressure 189/90 with a pulse of 60, temperature 98.1. He is 95% on room air. General description is a middle-aged male up in the room in no distress. Respiratory system: Unlabored breathing, clear to auscultation. Heart S1, S2. Regular rate and rhythm. Abdomen soft. Mild tenderness in right upper quadrant. LABS: Hemoglobin is 15.2, white count 8.1. CRP 124.2. Blood culture repeat is so far pending. DIAGNOSTIC IMPRESSION AND PLAN: Patient with polymicrobial bacteremia secondary to the ascending cholangitis and acute cholecystitis status post ERCP and cholecystectomy. We will keep the patient on Zosyn while waiting for repeat blood cultures to finalize ( ) case bacteremia and continue supportive care. Hopefully finish therapy with oral antibiotics. MMODL / IJN: [id number] /
[2019-12-31] MEDS: SODIUM CHLORIDE 0.9% 1,000 ML IV SCH (02:08)
[2019-12-31] MEDS: PIPERACILLIN-TAZOBACTAM 3.375 GM in SODIUM CHLORIDE 0.9% 100 ML IVPB SCH ×3 (04:30→20:45)
[2019-12-31] MEDS: HYDROcodone/APAP 5-325MG 1 EACH TAB PO PRN ×3 (06:06→18:21)
[2019-12-31 06:41] LABS: Basophils % (A) 0 %; Eosinophils # (A) 0.1 k/uL (0-0.7); Eosinophils % (A) 1 %; HCT 48.4 % (39.0-53.0); HGB 15.6 gm/dL (13.0-17.5); Lymphocytes % (A) 13 %; MCH 33.4 pg (25.0-35.0); MCHC 32.3 g/dL (31.0-37.0); MCV 103.6 fL (80.0-100.0); Macrocytosis Slight; Mean Platelet Volume 10.3; Monocytes # (A) 0.4 k/uL (0-1.0); Monocytes % (A) 5 %; Neutrophils # (A) 6.3 k/uL (1.3-7.7); Neutrophils % (A) 79 %; Platelet Count 150 k/uL (150-450); RBC 4.67 m/uL (4.30-5.90); RDW 14.5 % (11.5-15.5)
[2019-12-31 06:44] LABS: ALT 56 U/L (4-49); AST 38 U/L (17-59); African American GFR (CKD) >90 (>60 ml/min/1.73 sqM); Albumin 3.4 g/dL (3.5-5.0); Alkaline Phosphatase 373 U/L (38-126); Anion Gap 7 mmol/L; Blood Urea Nitrogen 13 mg/dL (9-20); Calcium 8.6 mg/dL (8.4-10.2); Carbon Dioxide 27 mmol/L (22-30); Chloride 102 mmol/L (98-107); Glucose 92 mg/dL (74-99); Non-African American GFR(CKD) >90 (>60 ml/min/1.73 sqM); Potassium 3.8 mmol/L (3.5-5.1); Sodium 136 mmol/L (137-145); Total Bilirubin 1.7 mg/dL (0.2-1.3); Total Protein 6.3 g/dL (6.3-8.2)
[2019-12-31] MEDS: NICOTINE 21MG/24HR PATCH TRANSDERM SCH (08:02)
[2019-12-31] MEDS: PANTOPRAZOLE 40 MG/10 ML VIAL IVP SCH (08:02)
[2019-12-31] MEDS: ENOXAPARIN 40 MG/0.4 ML SYRINGE SQ SCH (08:03)
[2019-12-31] MEDS: buPROPion SR 150 MG TABLET.ER PO SCH (08:03)
--- NOTE | 2019-12-31 10:43 | P.PN ---
Progress Note - Text Progress Note Date: 12/31/19 Patient remained stable. He has minimal consult pain. He's continue to receive IV antibiotic. On exam his vital signs are stable. Abdomen soft. Incision sites clean dry tach. Status post Ostectomy for: Erik. Patient will be discharged home per the medical service.
--- NOTE | 2019-12-31 18:35 | PN ---
PROGRESS NOTE DATE OF SERVICE: 12/31/2019 This 64-year-old gentleman was admitted with acute ascending cholangitis, dilated intrahepatic biliary duct indicating obstruction. Patient had ERCP and stone extraction as well as the laparoscopic cholecystectomy. The patient, however, had multiple organisms grown from the wound culture. The blood culture on 12/26 showed polymicrobial josé miguel including E coli, Enterobacter faecium and Enterobacter aerogenes. The patient is on IV antibiotics. Dr. Magallanes is following the patient closely. LFTs are still elevated including the alk phos at 373. C-reactive protein is also elevated. Most recent cultures are negative, which were done yesterday. PAST MEDICAL HISTORY: Reviewed. REVIEW OF SYSTEMS: CARDIOVASCULAR SYSTEM: No angina. RESPIRATORY: As mentioned earlier. GI: As mentioned earlier. : No dysuria. NERVOUS SYSTEM: No numbness or weakness. CURRENT MEDICATIONS: 1. [place] 5 mg q.6h p.r.n. 2. Ventolin. 3. Wellbutrin SR 150 mg p.o. 4. Lovenox 40 mg subcu daily. 5. Dilaudid p.r.n. 6. Narcan p.r.n. 7. Habitrol 21 daily. 8. Protonix 40 mg daily. 9. Zosyn 3.375 IV q.8. 10.Ambien 2.5 mg q.h.s. p.r.n. PHYSICAL EXAM: Patient is alert, oriented x3. Pulse 57, blood pressure 157/89, respirations 16, temperature 99.6, pulse ox 97% on room air HEENT: Conjunctivae normal. Oral mucosa moist. NECK: No jugular venous distention. No lymph node enlargement. CARDIOVASCULAR: S1, S2. RESPIRATORY: Diminished breath sounds at the bases. A few scattered rhonchi and crackles. Expiratory wheezing also present. ABDOMEN: Soft, nontender. LEGS: No edema, no swelling. NERVOUS SYSTEM: No focal deficits. LABS: WBC 8, hemoglobin 15.6, sodium 136 and bilirubin is 1.78. Alkaline phosphatase is 373. ASSESSMENT: 1. Acute cholecystitis with possible ascending cholangitis, status post laparoscopic cholecystectomy with sepsis present on admission. 2. Escherichia coli, Enterococcus faecium and Enterobacter aerogenes grown from the blood culture. 3. Elevated AST, ALT and alkaline phosphatase because of obstructive jaundice. 4. Increased WBC. 5. Thrombocytopenia. 6. History of continued ongoing nicotine dependence. 7. History of mandibular fracture. 8. History of cholelithiasis. 9. History of substance abuse including opiates, cocaine and marijuana. 10.FULL CODE. RECOMMENDATIONS AND DISCUSSION: I recommend to continue current management and continue symptomatic treatment. Continue with IV Zosyn. Await the reports of the most recent cultures. Closely follow with Infectious Disease. Guarded prognosis because of multiple complex medical issues and further recommendations to follow. MMODL / IJN: [id number] /
--- NOTE | 2019-12-31 22:59 | PN ---
PROGRESS NOTE DATE OF SERVICE: 12/31/2019 The patient is a 64-year-old pleasant white male admitted to hospital with ascending cholangitis and subsequently underwent ERCP with CBD stone extraction. He is doing much better. He is also status post gallbladder surgery. He denies any complaints. He reports no nausea, vomiting. No fever, chills, or night sweats. PHYSICAL EXAMINATION: Appears comfortable no apparent distress. VITAL SIGNS: Stable. Blood pressure 162/86, pulse rate 53, temperature 98.7. HEENT examination unremarkable. Conjunctivae pink. Sclerae anicteric. Oral cavity, no lesions. NECK: No JVD or lymph node enlargement. CHEST: Clear to auscultation. HEART: Regular rate and rhythm. ABDOMEN: Soft. Bowel sounds are positive. No organomegaly. EXTREMITIES: No pedal edema. SKIN: No rashes. NEURO: He is alert and oriented x3. No focal deficits. LABS: From today show T-bilirubin is down to 1.7, AST and ALT are 38 and 56 respectively. Alkaline phosphatase is 373. IMPRESSION: 1. Ascending cholangitis with gram-negative bacteremia on antibiotics, doing well. 2. Jaundice with elevated LFTs, status post ERCP with CBD stone extraction [address] Bertrand. LFTs are gradually improving. 3. Status post gallbladder surgery. RECOMMENDATIONS: 1. Continue with broad-spectrum antibiotics. 2. Advance diet as tolerated. 3. Monitor labs closely. We will follow with. Thank you for this consultation. MMODL / IJN: [id number] /
--- NOTE | 2019-12-31 23:04 | PN ---
PROGRESS NOTE DATE OF SERVICE: 12/31/2019 REASON FOR FOLLOW UP: Ascending cholangitis with bacteremia. INTERVAL HISTORY: The patient is currently afebrile. Patient is breathing comfortably. Denies having any chest pain. No shortness of breath or cough. Abdominal pain is currently improved. No nausea, vomiting. PHYSICAL EXAMINATION: Blood pressure is 157/89. Pulse of 57. He is 97% on room air. The patient is a middle-aged male up in the room in no distress. Respiratory system: Unlabored breathing. Clear to auscultation anteriorly. Heart S1, S2. Regular rate and rhythm. ABDOMEN: Soft, no tenderness. EXTREMITIES: No edema of the feet. LABS: Hemoglobin 15.1, white count 8.0, BUN of 13, creatinine 0.68. DIAGNOSTIC IMPRESSION AND PLAN: Patient with polymicrobial bacteremia secondary to ascending cholangitis and acute cholecystitis in this patient, status post ERCP and cholecystectomy. The patient is covered with Zosyn. White count normalized. Keep the patient on IV Zosyn while inpatient. Finish therapy with oral antibiotic on discharge. Continue supportive care. MMODL / IJN: [id number] /
[2020-01-01] MEDS: SODIUM CHLORIDE 0.9% 1,000 ML IV SCH (01:24)
[2020-01-01] MEDS: HYDROcodone/APAP 5-325MG 1 EACH TAB PO PRN (01:25)
[2020-01-01] MEDS: PIPERACILLIN-TAZOBACTAM 3.375 GM in SODIUM CHLORIDE 0.9% 100 ML IVPB SCH ×2 (04:46→11:25)
[2020-01-01 06:25] LABS: Basophils % (A) 0 %; Eosinophils # (A) 0.2 k/uL (0-0.7); Eosinophils % (A) 2 %; HCT 46.8 % (39.0-53.0); HGB 15.5 gm/dL (13.0-17.5); Lymphocytes % (A) 11 %; MCH 34.1 pg (25.0-35.0); MCV 103.3 fL (80.0-100.0); Macrocytosis Slight; Mean Platelet Volume 9.5; Monocytes # (A) 0.5 k/uL (0-1.0); Monocytes % (A) 5 %; Neutrophils # (A) 7.6 k/uL (1.3-7.7); Neutrophils % (A) 81 %; Platelet Count 163 k/uL (150-450); RBC 4.53 m/uL (4.30-5.90); RDW 14.4 % (11.5-15.5); WBC 9.5 k/uL (3.8-10.6)
[2020-01-01 06:26] LABS: ALT 48 U/L (4-49); AST 33 U/L (17-59); African American GFR (CKD) >90 (>60 ml/min/1.73 sqM); Albumin 3.2 g/dL (3.5-5.0); Alkaline Phosphatase 329 U/L (38-126); Anion Gap 9 mmol/L; Blood Urea Nitrogen 14 mg/dL (9-20); Calcium 8.6 mg/dL (8.4-10.2); Carbon Dioxide 27 mmol/L (22-30); Chloride 103 mmol/L (98-107); Glucose 95 mg/dL (74-99); Non-African American GFR(CKD) >90 (>60 ml/min/1.73 sqM); Potassium 4.2 mmol/L (3.5-5.1); Sodium 139 mmol/L (137-145); Total Bilirubin 1.3 mg/dL (0.2-1.3); Total Protein 5.9 g/dL (6.3-8.2)
[2020-01-01] MEDS: PANTOPRAZOLE 40 MG/10 ML VIAL IVP SCH (07:27)
[2020-01-01] MEDS: ENOXAPARIN 40 MG/0.4 ML SYRINGE SQ SCH (07:27)
[2020-01-01] MEDS: NICOTINE 21MG/24HR PATCH TRANSDERM SCH (07:27)
[2020-01-01] MEDS: buPROPion SR 150 MG TABLET.ER PO SCH (07:28)
[2020-01-01] MEDS ORDERED: LORazepam 2 MG/ML INJ IV PRN (10:57)
[2020-01-01 12:00] VITALS: BP 148/86; PULSE 65; RESP 18; TEMP 98.9
--- NOTE | 2020-01-01 12:03 | PN ---
PROGRESS NOTE DATE OF DICTATION: January 01, 2020 Patient is a 64-year-old pleasant white male admitted to hospital with ascending cholangitis and gram-negative bacteremia. Presently on antibiotics, doing well. No abdominal pain. No nausea, vomiting, status post ERCP [address] Bertrand and CBD stone was extracted. He denies any abdominal pain. No nausea, vomiting. PHYSICAL EXAMINATION: Appears comfortable. VITAL SIGNS: Stable. Blood pressure 162/87, pulse rate 58, temperature 98.4. HEENT examination unremarkable. Conjunctivae pink. Sclerae anicteric. The oral cavity no lesions. NECK: No JVD or lymph node enlargement. CHEST: Clear to auscultation. HEART: Regular rate and rhythm. ABDOMEN: Soft. Bowel sounds are positive. No organomegaly. EXTREMITIES: No pedal edema. SKIN: No rashes. NEUROLOGIC: Alert and oriented x3. No focal deficits. LABS: WBC 9.5, hemoglobin 15.5, platelets normal. Basic metabolic panel within normal limits. T bilirubin, AST, ALT normal, alkaline phosphatase 329. IMPRESSION: Ascending cholangitis with gram-negative bacteremia on broad-spectrum antibiotics, doing well status post ERCP with CBD stone extraction by Dr. Bertrand for ascending cholangitis 4 days ago. LFTs have completely normalized. Remains on IV Zosyn, status post gallbladder surgery 4 days ago. RECOMMENDATIONS: 1. Continue with broad-spectrum antibiotics. 2. Advance diet as tolerated. 3. Will sign off at this time. Please call us if needed. Thank you for this consultation. MMODL / IJN: [id number] /
--- NOTE | 2020-01-01 16:06 | PN ---
PROGRESS NOTE DATE OF SERVICE: 01/01/2020 REASON FOR FOLLOW UP: Polymicrobial bacteremia secondary to ascending cholangitis and cholecystitis. INTERVAL HISTORY: The patient is currently afebrile. Patient is breathing comfortably. Denies any chest pain. Occasional cough. Abdominal pain is currently controlled. No nausea, no vomiting. No diarrhea. PHYSICAL EXAMINATION: Blood pressure 148/86, pulse of 65, temperature 98.9. He is 95% on room air. General description is a middle-aged male lying in bed in no distress. Respiratory system: Unlabored breathing and is clear to auscultation anteriorly. Heart S1, S2. Regular rate and rhythm. Abdomen soft, no tenderness. LABS: Hemoglobin is 15.5, white count 9.5, BUN of 14, creatinine 0.77. Blood culture repeat has been negative. DIAGNOSTIC IMPRESSION AND PLAN: Patient with polymicrobial bacteremia secondary to ascending cholangitis and cholecystitis status post ERCP and cholecystectomy. Patient is currently on Zosyn. Antibiotic was switched over to Augmentin and Cipro for 10 days. Prescription sent down to the pharmacy. Close outpatient followup. MMODL / IJN: [id number] /
--- NOTE | 2020-01-01 22:18 | DS ---
DISCHARGE SUMMARY FINAL DIAGNOSES: 1. Acute cholecystitis with possible ascending cholangitis, status post laparoscopic cholecystectomy with sepsis, present on admission. 2. Escherichia coli, Enterococcus faecium and Enterobacter aerogenes grown from the blood culture. 3. Increased AST, ALT, alkaline phosphatase, because of the jaundice. 4. Increased WBC. 5. Thrombocytopenia. 6. History of continued ongoing nicotine dependence. 7. History of mandibular fracture. 8. History of cholelithiasis. 9. History of substance abuse including opiates, cocaine and marijuana. 10.FULL CODE. DISCHARGE DISPOSITION: The patient discharged in stable condition, guarded prognosis. Total time taken 35 minutes. HISTORY OF PRESENT ILLNESS: This is a 64-year-old gentleman with a past medical history of multiple problems was admitted with acute cholecystitis and possible ascending cholangitis. Patient underwent laparoscopic cholecystectomy and the patient also has sepsis. The patient has IV antibiotics. Multiple organisms were grown from the culture the first time. The second time the culture was negative so far. The patient is extremely keen on going home. Dr. Magallanes saw the patient and recommended the patient be discharged, so the total time taken 35 minutes. On exam, vitals are stable. Cardiovascular S1, S2. Abdomen soft, nontender. Nervous system: No focal deficits. DIET: Cardiac. ACTIVITY: Limited until follow up. FOLLOW UP: Follow up with Dr. Márquez in 2-3 days. Follow up with Dr. Ruvalcaba as recommended. MEDICATIONS: 1. Ambien p.r.n. 2. Testosterone as before. 3. Albuterol p.r.n. 4. Bupropion 150 mg b.i.d. 5. Augmentin 875 p.o. b.i.d. for 10 days. 6. Cipro 500 mg p.o. b.i.d. for another 10 days. 7. Hydrocodone 1 tablet p.o. q.6h p.r.n. Follow up with Dr. Magallanes of Infectious Disease p.r.n. MMODL / LEORAN: [id number] /
== END 2020-01-01 14:47 | disposition home or self-care (01) | DRG 854 ==
LOC: EC 01:59 → 5NMEDONC 03:58
PROVIDERS: ADMIT Hospitalist; ATTEND Hospitalist
PROC: BF131ZZ Fluoroscopy of Gallbladder and Bile Ducts using Low Osmolar Contrast (ICD-10-PCS; 2019-12-27 08:00)
PROC: 0FC78ZZ Extirpation of Matter from Common Hepatic Duct, Via Natural or Artificial Opening Endoscopic (ICD-10-PCS; 2019-12-27 08:00)
PROC: 0FT44ZZ Resection of Gallbladder, Percutaneous Endoscopic Approach (ICD-10-PCS; principal; 2019-12-28 09:30)
DX: A41.81 Sepsis due to Enterococcus (principal); K80.01 Calculus of gallbladder with acute cholecystitis with obstruction; K83.09 Other cholangitis; A41.51 Sepsis due to Escherichia coli [E. coli]; A41.89 Other specified sepsis; D69.6 Thrombocytopenia, unspecified; F17.210 Nicotine dependence, cigarettes, uncomplicated; K25.9 Gastric ulcer, unspecified as acute or chronic, without hemorrhage or perforation; K59.00 Constipation, unspecified; Z11.59 Encounter for screening for other viral diseases
CPT/HCPCS: 36415; 43262; 43264; 74177; 74330; 80053; 80074; 80202; 80306; 80320; 80329; 81001; 82248; 83605; 83690; 85025; 86140; 87040; 87077; 87186; 87635; 88304; 96361; 96365; 96375; 99291

== ENCOUNTER → 2020-03-07 | Outpatient (CLI) | payer OTHER ==
[2020-03-07 20:08] LABS: Hemoglobin A1C 5.7 % (4.0-6.0)
== END | disposition home or self-care (01) ==
LOC: LABWHC1 09:40
PROVIDERS: ATTEND Ophthalmology
DX: E11.9 Type 2 diabetes mellitus without complications (principal)
CPT/HCPCS: 36415; 82465; 83036

== ENCOUNTER 2023-08-08 20:07 | Emergency (ER) | payer OTHER ==
[2023-08-08 20:13] LABS: Glucose,Whole Blood 164 mg/dL (70-110)
[2023-08-08 20:35] LABS: Basophils % (A) 1 %; Eosinophils # (A) 0.2 k/uL (0-0.7); Eosinophils % (A) 2 %; HCT 38.9 % (39.0-53.0); HGB 13.1 gm/dL (13.0-17.5); Lymphocytes # (A) 2.6 k/uL (1.0-4.8); Lymphocytes % (A) 31 %; MCH 33.1 pg (25.0-35.0); MCHC 33.7 g/dL (31.0-37.0); MCV 98.3 fL (80.0-100.0); Mean Platelet Volume 8.6; Monocytes # (A) 0.4 k/uL (0-1.0); Monocytes % (A) 5 %; Neutrophils # (A) 4.9 k/uL (1.3-7.7); Neutrophils % (A) 59 %; Platelet Count 175 k/uL (150-450); RBC 3.96 m/uL (4.30-5.90); RDW 14.2 % (11.5-15.5); WBC 8.4 k/uL (3.8-10.6)
[2023-08-08 20:46] LABS: ALT 32 U/L (4-49); AST 48 U/L (17-59); African American GFR (CKD) 55 (>60 ml/min/1.73 sqM); Albumin 3.8 g/dL (3.5-5.0); Alkaline Phosphatase 134 U/L (38-126); Anion Gap 12 mmol/L; Blood Urea Nitrogen 19 mg/dL (9-20); Calcium 8.1 mg/dL (8.4-10.2); Carbon Dioxide 26 mmol/L (22-30); Chloride 105 mmol/L (98-107); Glucose 114 mg/dL (74-99); Non-African American GFR(CKD) 47 (>60 ml/min/1.73 sqM); Potassium 3.8 mmol/L (3.5-5.1); Sodium 143 mmol/L (137-145); Total Bilirubin 0.4 mg/dL (0.2-1.3); Total Protein 6.3 g/dL (6.3-8.2)
--- NOTE | 2023-08-08 21:05 | CT ---
EXAMINATION TYPE: CT brain cspine wo con CT DLP: 1456.5 mGycm, Automated exposure control for dose reduction was used. DATE OF EXAM: 08/08/2023 8:52 PM COMPARISON: None. CLINICAL INDICATION:Male, 67 years old with history of fall; ETOH TECHNIQUE: Brain: Multiple axial CT images of the brain were obtained without IV contrast. Cspine: Axial CT images from the skull base to the inferior aspect of T2 we obtained without intraven ous contrast. Coronal and sagittal reformatted images were also reviewed. FINDINGS: Brain: Extra-axial spaces: No abnormal extra-axial fluid collections. Ventricular system: Within normal limits Cerebral parenchyma: No acute intraparenchymal hemorrhage or mass effect. The stone-white junction is well differentiated. Cerebellum: Unremarkable. Mass effect: No evidence of midline shift. Intracranial vasculature: Atherosclerotic calcifications of the intracranial vessels. Soft tissues: Normal. Calvarium/osseous structures: No depressed skull fracture. Paranasal sinuses and mastoid air cells: Clear. Visualized orbits: Orbital contents are intact. Cervical spine: Fracture: None. Osseous structures: Multilevel degenerative disc disease changes with endplate spurring and disc oste ophyte complex's. Vertebral alignment: Increased lordosis of the cervical spine apex anteriorly at C5-C6. Anterolisthes is of C3 on C4. Spinal canal/Neural Foramina: No evidence of significant spinal canal narrowing. No evidence for sign ificant neural foraminal stenosis. Neck soft tissues: Prevertebral soft tissues are within normal limits. Other: The airway is patent. The lung apices are clear. IMPRESSION: 1. No acute intracranial process. 2. Nonspecific white matter changes, likely secondary to chronic small vessel ischemic disease. 3. No evidence of cervical spine fracture. 4. Moderate multilevel degenerative disc disease.
[2023-08-08 21:07] LABS: Alcohol 172 mg/dL
--- NOTE | 2023-08-08 22:09 | XR ---
EXAMINATION TYPE: XR pelvis AP view DATE OF EXAM: 08/08/2023 9:46 PM CLINICAL INDICATION:Male, 67 years old with history of fall; COMPARISON: None TECHNIQUE: The pelvis was examined in a single projection. FINDINGS: There is no evidence of fracture or dislocation. There is no soft tissue abnormality. No a bnormal calcifications are present. The spine appears intact. The hips appear intact. Osteophyte form ation of the superior acetabulum bilaterally with mild joint space narrowing. IMPRESSION: 1. No acute osseous pathology. 2. Mild degeneration changes to the hips.
--- NOTE | 2023-08-08 22:10 | XR ---
EXAMINATION TYPE: XR chest 2V DATE OF EXAM: 08/08/2023 9:46 PM CLINICAL INDICATION:Male, 67 years old with history of fall; [facility] COMPARISON: None TECHNIQUE: XR chest 2V Frontal and lateral views of the chest. FINDINGS: Lungs/Pleura: There is no evidence of pleural effusion, focal consolidation, or pneumothorax. Pulmonary vascularity: Unremarkable. Heart/mediastinum: Cardiomediastinal silhouette is unremarkable. Musculoskeletal: No acute osseous pathology. Other findings: None IMPRESSION: No acute cardiopulmonary disease/process.
--- NOTE | 2023-08-08 22:30 | ED ---
Fall HPI - General Chief Complaint: Fall Stated Complaint: Fall, ETOH Source: patient, EMS Mode of arrival: EMS - History of Present Illness Initial Comments: 67-year-old male with past history of rheumatoid arthritis presents emergency room and after he sustained a fall. Patient was drinking and smoking marijuana when he fell down 14 steps. Denies any blunt head trauma. Patient does not take any thinners. Family does state that he lost consciousness for about 5 minutes and this is when they called EMS. EMS arrived and found the patient conscious and answering questions appropriately. He was denying any neck or back pain. No extremity pain. No chest pain or shortness of breath. Patient admits to drinking several shots of whiskey today. Admits that he drinks 2 shots daily. No other alleviating, precipitating modifying factors - Related Data Home Medications Medication Instructions Recorded Confirmed Albuterol Sulfate [Proair Hfa] 2 puff INHALATION RT-Q6H PRN 12/27/19 08/08/23 buPROPion XL [Wellbutrin XL] 150 mg PO DAILY 08/08/23 08/08/23 Allergies Allergy/AdvReac Type Severity Reaction Status Date / Time No Known Allergies Allergy Verified 08/08/23 21:55 Review of Systems ROS Statement: Those systems with pertinent positive or pertinent negative responses have been documented in the HPI. ROS Other: All systems not noted in ROS Statement are negative. Past Medical History Past Medical History: Rheumatoid Arthritis (RA) History of Any Multi-Drug Resistant Organisms: None Reported Additional Past Surgical History / Comment(s): Sinus polyps removed, Broken Jaw repair Past Anesthesia/Blood Transfusion Reactions: No Reported Reaction Past Psychological History: No Psychological Hx Reported Smoking Status: Current every day smoker Past Alcohol Use History: None Reported Past Drug Use History: None Reported - Past Family History Father Family Medical History: No Reported History General Exam General appearance: alert, appears intoxicated Head exam: Present: atraumatic, normocephalic, normal inspection Eye exam: Present: normal appearance, PERRL, EOMI. Absent: scleral icterus, conjunctival injection, periorbital swelling ENT exam: Present: normal exam, mucous membranes moist Neck exam: Present: normal inspection. Absent: tenderness, meningismus, lymphadenopathy Respiratory exam: Present: normal lung sounds bilaterally. Absent: respiratory distress, wheezes, rales, rhonchi, stridor Cardiovascular Exam: Present: regular rate, normal rhythm, normal heart sounds. Absent: systolic murmur, diastolic murmur, rubs, gallop, clicks GI/Abdominal exam: Present: soft, normal bowel sounds. Absent: distended, tenderness, guarding, rebound, rigid Extremities exam: Present: normal inspection, full ROM, normal capillary refill. Absent: tenderness, pedal edema, joint swelling, calf tenderness Back exam: Present: normal inspection Neurological exam: Present: alert, oriented X3, CN II-XII intact Psychiatric exam: Present: normal affect, normal mood Skin exam: Present: warm, dry, intact, normal color. Absent: rash Course Vital Signs 08/08/23 08/08/23 20:09 22:33 Temperature 97.5 F L Pulse Rate 95 72 Respiratory 19 17 Rate Blood Pressure 180/91 157/88 O2 Sat by Pulse 95 100 Oximetry Medical Decision Making - Medical Decision Making Was pt. sent in by a medical professional or institution (, PA, INSTALLMENT ACCOUNT CHECKER, urgent care, hospital, or intermediate...) When possible be specific @ -No Did you speak to anyone other than the patient for history (EMS, parent, family, police, friend...)? What history was obtained from this source @ -EMS and family Did you review nursing and triage notes (agree or disagree)? Why? @ -I reviewed and agree with nursing and triage notes Were old charts reviewed (outside hosp., previous admission, EMS record, old EKG, old radiological studies, urgent care reports/EKG's, intermediate records)? Report findings @ -No old charts were reviewed Differential Diagnosis (chest pain, altered mental status, abdominal pain women, abdominal pain men, vaginal bleeding, weakness, fever, dyspnea, syncope, headache, dizziness, GI bleed, back pain, seizure, CVA, palpatations, mental health, musculoskeletal)? @ -Differential Musculoskeletal Muscular strain, contusion, ligament sprain, fracture, arthritis, septic arthritis, bursitis, cellulitis, muscle spasm, nerve compression, DVT, arterial occlusion, herpes zoster, electrolyte abnormality, tumor.... This is not meant t o be in all inclusive list EKG interpreted by me (3pts min.). @ -Yes and demonstrates sinus rhythm rate 95. NE interval 267. QRS 111. QTC of 396. No acute ST segment elevations or depressions X-rays interpreted by me (1pt min.). @ -Yes and demonstrates no acute intrathoracic process. No pelvic fractures CT interpreted by me (1pt min.). @ -Yes and demonstrates no acute intracranial process U/S interpreted by me (1pt. min.). @ -None done What testing was considered but not performed or refused? (CT, X-rays, U/S, labs)? Why? @ -None What meds were considered but not given or refused? Why? @ -None Did you discuss the management of the patient with other professionals (professionals i.e. , PA, INSTALLMENT ACCOUNT CHECKER, lab, RT, psych nurse, aids social worker, chemistry lab instructor, teacher, tactical/mobile watch officer, director case management)? Give summary @ -No Was smoking cessation discussed for >3mins.? @ -No Was critical care preformed (if so, how long)? @ -No Were there social determinants of health that impacted care today? How? (Homelessness, low income, unemployed, alcoholism, drug addiction, transportation, low edu. Level, literacy, decrease access to med. care, long term, rehab)? @ -No Was there de-escalation of care discussed even if they declined (Discuss DNR or withdrawal of care, Hospice)? DNR status @ -No What co-morbidities impacted this encounter? (DM, HTN, Smoking, COPD, CAD, Cancer, CVA, ARF, Chemo, Hep., AIDS, mental health diagnosis, sleep apnea, morbid obesity)? @ -EtOH abuse Was patient admitted / discharged? Hospital course, mention meds given and route, prescriptions, significant lab abnormalities, going to OR and other pertinent info. @ -Discharge. Upon arrival patient placed in room 2. He is alert and answering questions appropriately. He is sent for chest and pelvic x-ray read CT of the brain was performed. Results are discussed with patient. Discussed results with family member. Patient is stable for discharge home at this time. Recommend that he cut down on his drinking. Follow up with his doctor and return for any new or worsening symptoms Undiagnosed new problem with uncertain prognosis? @ -No Drug Therapy requiring intensive monitoring for toxicity (Heparin, Nitro, Insulin, Cardizem)? @ -No Were any procedures done? @ -No Diagnosis/symptom? @ -Acute fall downstairs, acute alcohol intoxication Acute, or Chronic, or Acute on Chronic? @ -Acute Uncomplicated (without systemic symptoms) or Complicated (systemic symptoms)? @ -complicated Side effects of treatment? @ -No Exacerbation, Progression, or Severe Exacerbation? @ -No Poses a threat to life or bodily function? How? (Chest pain, USA, [place], pneumonia, PE, COPD, DKA, ARF, appy, cholecystitis, CVA, Diverticulitis, Homicidal, Suicidal, threat to staff... and all critical care pts) @ -No - Lab Data Result diagrams: 08/08/23 20:27 08/08/23 20:27 Lab Results 08/08/23 08/08/23 08/08/23 Range/Units 20:12 20:27 20:27 WBC 8.4 (3.8-10.6) k/uL RBC 3.96 L (4.30-5.90) m/uL Hgb 13.1 (13.0-17.5) gm/dL Hct 38.9 L (39.0-53.0) % MCV 98.3 (80.0-100.0) fL MCH 33.1 (25.0-35.0) pg MCHC 33.7 (31.0-37.0) g/dL RDW 14.2 (11.5-15.5) % Plt Count 175 (150-450) k/uL MPV 8.6 Neutrophils % 59 % Lymphocytes % 31 % Monocytes % 5 % Eosinophils % 2 % Basophils % 1 % Neutrophils # 4.9 (1.3-7.7) k/uL Lymphocytes # 2.6 (1.0-4.8) k/uL Monocytes # 0.4 (0-1.0) k/uL Eosinophils # 0.2 (0-0.7) k/uL Basophils # 0.0 (0-0.2) k/uL Sodium 143 (137-145) mmol/L Potassium 3.8 (3.5-5.1) mmol/L Chloride 105 (98-107) mmol/L Carbon Dioxide 26 (22-30) mmol/L Anion Gap 12 mmol/L BUN 19 (9-20) mg/dL Creatinine 1.52 H (0.66-1.25) mg/dL Est GFR (CKD-EPI)AfAm 55 (>60 ml/min/1.73 sqM) Est GFR (CKD-EPI)NonAf 47 (>60 ml/min/1.73 sqM) Glucose 114 H (74-99) mg/dL POC Glucose (mg/dL) 164 H (70-110) mg/dL POC Glu Health Data Administrator ID Juan Kellogg Calcium 8.1 L (8.4-10.2) mg/dL Total Bilirubin 0.4 (0.2-1.3) mg/dL AST 48 (17-59) U/L ALT 32 (4-49) U/L Alkaline Phosphatase 134 H (38-126) U/L Total Protein 6.3 (6.3-8.2) g/dL Albumin 3.8 (3.5-5.0) g/dL Serum Alcohol 172 mg/dL Disposition Clinical Impression: Fall, Elevated ETOH level Disposition: HOME SELF-CARE Condition: Stable Instructions (If sedation given, give patient instructions): Fall Prevention (ED) Additional Instructions: Your imaging was negative. If you have any new or worsening pain, you may need more imaging. Is patient prescribed a controlled substance at d/c from ED?: No Referrals: Pedro Márquez MD [Primary Care Provider] - 1-2 days Time of Disposition: 22:30
[2023-08-08 22:37] VITALS: BP 157/88; PULSE 72; RESP 17; TEMP 97.5
== END 2023-08-08 22:48 | disposition home or self-care (01) ==
LOC: EC 20:07
DX: R78.0 Finding of alcohol in blood (principal); Z04.3 Encounter for examination and observation following other accident; F17.200 Nicotine dependence, unspecified, uncomplicated; I44.0 Atrioventricular block, first degree
CPT/HCPCS: 36415; 70450; 71046; 72125; 72170; 80053; 80320; 85025; 99285

== ENCOUNTER 2024-07-20 08:52 | Emergency (ER) | payer MEDICARE, OTHER ==
[2024-07-20 09:05] VITALS: TEMP 98.7
[2024-07-20] MEDS: SODIUM CHLORIDE 0.9% 500 ML 500 ML IV STA (09:20)
[2024-07-20] MEDS: SODIUM CHLORIDE 0.9% 1,000 ML IV STA (09:20)
[2024-07-20] MEDS: KETOROLAC 15 MG/ML 1 ML VIAL IVP STA ×2 (09:21→12:05)
[2024-07-20] MEDS: ONDANSETRON 4 MG/2 ML VIAL IVP STA (09:21)
[2024-07-20 09:25] LABS: Basophils % (A) 0 %; Eosinophils # (A) 0.1 k/uL (0-0.7); Eosinophils % (A) 2 %; HCT 37.4 % (39.0-53.0); Lymphocytes # (A) 1.3 k/uL (1.0-4.8); Lymphocytes % (A) 18 %; MCH 30.2 pg (25.0-35.0); MCHC 32.2 g/dL (31.0-37.0); MCV 93.6 fL (80.0-100.0); Mean Platelet Volume 8.1; Monocytes # (A) 0.3 k/uL (0-1.0); Monocytes % (A) 5 %; Neutrophils % (A) 73 %; Platelet Count 252 k/uL (150-450); RBC 3.99 m/uL (4.30-5.90); RDW 15.3 % (11.5-15.5); WBC 6.9 k/uL (3.8-10.6)
[2024-07-20 09:34] LABS: Partial Thromboplastin Time 23.1 sec (22.0-30.0); Prothrombin Time 10.9 sec (10.0-12.5)
[2024-07-20 09:37] LABS: Appearance,Urine Clear (Clear); Bilirubin,Urine Negative (Negative); Blood,Urine Negative (Negative); Color,Urine Yellow; Glucose,Urine (UA) Negative (Negative); Ketones,Urine Negative (Negative); Leukocyte Esterase,Urine Negative (Negative); Mucus,Urine Rare /hpf; Nitrite,Urine Negative (Negative); Protein,Urine 1+ (Negative); RBC,Urine 2 /hpf (0-5); Specific Gravity,Urine 1.019 (1.001-1.035); Squamous Epithelial Cell,Urine <1 /hpf (0-4); Urobilinogen,Urine <2.0 mg/dL (<2.0); WBC,Urine 1 /hpf (0-5)
[2024-07-20 09:38] LABS: ALT 22 U/L (4-49); AST 41 U/L (17-59); African American GFR (CKD) 73 (>60 ml/min/1.73 sqM); Albumin 4.4 g/dL (3.5-5.0); Alcohol <10 mg/dL; Alkaline Phosphatase 139 U/L (38-126); Amylase 68 U/L (30-110); Anion Gap 8 mmol/L; Blood Urea Nitrogen 24 mg/dL (9-20); Calcium 8.9 mg/dL (8.4-10.2); Carbon Dioxide 28 mmol/L (22-30); Chloride 103 mmol/L (98-107); Glucose 133 mg/dL (74-99); Lipase 102 U/L (23-300); Non-African American GFR(CKD) 64 (>60 ml/min/1.73 sqM); Potassium 3.9 mmol/L (3.5-5.1); Sodium 139 mmol/L (137-145); Total Bilirubin 0.6 mg/dL (0.2-1.3); Total Protein 6.8 g/dL (6.3-8.2)
--- NOTE | 2024-07-20 11:08 | ED ---
Abdominal Pain HPI - General Chief Complaint: Abdominal Pain Stated Complaint: abd pain Time Seen by Provider: 07/20/24 09:05 Source: patient, RN notes reviewed Mode of arrival: ambulatory Limitations: no limitations - History of Present Illness Initial Comments: 68-year-old male presents emergency department complaint abdominal pain. Patient has been having creasing lower abdominal pain, mid abdominal pain. He states that mid abdominal pain is more new he states because of the pain he has been drinking heavily and states he has been drinking up to 1/5 a day. Patient states his last drink was last night does not have any current withdrawal sympt oms. Patient states the pain is pressure constipated no change in bowel habits no dysuria denies any chest pain or shortness of breath - Related Data Home Medications Medication Instructions Recorded Confirmed Albuterol Sulfate [Proair Hfa] 2 puff INHALATION RT-Q6H PRN 12/27/19 08/08/23 buPROPion XL [Wellbutrin XL] 150 mg PO DAILY 08/08/23 08/08/23 Allergies Allergy/AdvReac Type Severity Reaction Status Date / Time No Known Allergies Allergy Verified 07/20/24 09:05 Review of Systems ROS Statement: Those systems with pertinent positive or pertinent negative responses have been documented in the HPI. ROS Other: All systems not noted in ROS Statement are negative. Past Medical History Past Medical History: Rheumatoid Arthritis (RA) History of Any Multi-Drug Resistant Organisms: None Reported Additional Past Surgical History / Comment(s): Sinus polyps removed, Broken Jaw repair Past Anesthesia/Blood Transfusion Reactions: No Reported Reaction Past Psychological History: No Psychological Hx Reported Smoking Status: Current every day smoker Past Alcohol Use History: Daily, Heavy Past Drug Use History: Marijuana - Past Family History Father Family Medical History: No Reported History General Exam Limitations: no limitations General appearance: alert, in no apparent distress Head exam: Present: atraumatic, normocephalic, normal inspection Eye exam: Present: normal appearance, PERRL, EOMI. Absent: scleral icterus, conjunctival injection, periorbital swelling ENT exam: Present: normal exam, normal oropharynx, mucous membranes moist Neck exam: Present: normal inspection. Absent: tenderness, meningismus, lymphadenopathy Respiratory exam: Present: normal lung sounds bilaterally. Absent: respiratory distress, wheezes, rales, rhonchi, stridor Cardiovascular Exam: Present: regular rate, normal rhythm, normal heart sounds. Absent: systolic murmur, diastolic murmur, rubs, gallop, clicks GI/Abdominal exam: Present: soft, tenderness, normal bowel sounds. Absent: distended, guarding, rebound, rigid Course Vital Signs 07/20/24 07/20/24 09:00 12:06 Temperature 98.7 F Pulse Rate 105 H 88 Respiratory 18 16 Rate Blood Pressure 188/89 178/80 O2 Sat by Pulse 98 100 Oximetry Medical Decision Making - Medical Decision Making Was pt. sent in by a medical professional or institution (, PA, WAX BLENDER, urgent care, hospital, or skilled nursing...) When possible be specific @ -No Did you speak to anyone other than the patient for history (EMS, parent, family, police, friend...)? What history was obtained from this source @ -No Did you review nursing and triage notes (agree or disagree)? Why? @ -I reviewed and agree with nursing and triage notes Were old charts reviewed (outside hosp., previous admission, EMS record, old EKG, old radiological studies, urgent care reports/EKG's, skilled nursing records)? Report findings @ -No old charts were reviewed Differential Diagnosis (chest pain, altered mental status, abdominal pain women, abdominal pain men, vaginal bleeding, weakness, fever, dyspnea, syncope, hea dache, dizziness, GI bleed, back pain, seizure, CVA, palpatations, mental health, musculoskeletal)? @ -Differential Abdominal Pain Men: Appendicitis, cholecystitis, diverticulosis, ischemic bowel, pancreatitis, hepatitis, UTI, gastroenteritis, AAA, incarcerated hernia, bowel obstruction, constipation, inflammatory bowel, hepatitis, peptic ulcer disease, splenic infarction, perforated viscus, testicular torsion, this is not meant to be an all-inclusive list EKG interpreted by me (3pts min.). @ -[None X-rays interpreted by me (1pt min.). @ -None done CT interpreted by me (1pt min.). @ -CT abdomen pelvis showing lower lobe nodules new, mild hydronephrosis on the right U/S interpreted by me (1pt. min.). @ -None done What testing was considered but not performed or refused? (CT, X-rays, U/S, labs)? Why? @ -None What meds were considered but not given or refused? Why? @ -None Did you discuss the management of the patient with other professionals (professionals i.e. , PA, WAX BLENDER, lab, RT, psych nurse, social work nurse, olap developer, teacher, revenue officer, medical case manager)? Give summary @ -No Was smoking cessation discussed for >3mins.? @ -I discussed smoking cessation for greater than 3 minutes. The risk of smoking were discussed with the patient including but not limited to risks of cancer, stroke, coronary artery disease and COPD. Also discussed with patient were multiple methods of quitting smoking. Lastly we discussed the financial cost of smoking. Was critical care preformed (if so, how long)? @ -No Were there social determinants of health that impacted care today? How? (Homelessness, low income, unemployed, alcoholism, drug addiction, transportation, low edu. Level, literacy, decrease access to med. care, longterm, rehab)? @ -No Was there de-escalation of care discussed even if they declined (Discuss DNR or withdrawal of care, Hospice)? DNR status @ -No What co-morbidities impacted this encounter? (DM, HTN, Smoking, COPD, CAD, Cancer, CVA, ARF, Chemo, Hep., AIDS, mental health diagnosis, sleep apnea, morbid obesity)? @ -Smoking history Was patient admitted / discharged? Hospital course, mention meds given and route, prescriptions, significant lab abnormalities, going to OR and other pertinent info. @ -Discharge patient will follow-up with pulmonology for increasing lung nodule concerning for lung cancer. Patient also has some hydronephrosis on CT without obvious obstructive process patient's had this in the past will follow-up with urology. Patient vies to follow-up with rehab or AA for his alcohol abuse. Return parens discussed. Undiagnosed new problem with uncertain prognosis? @ -Yes Drug Therapy requiring intensive monitoring for toxicity (Heparin, Nitro, I nsulin, Cardizem)? @ -No Were any procedures done? @ -No Diagnosis/symptom? @ -Abdominal pain, lung nodules, hydronephrosis Acute, or Chronic, or Acute on Chronic? @ -Acute Uncomplicated (without systemic symptoms) or Complicated (systemic symptoms)? @ -Complicated Side effects of treatment? @ -No Exacerbation, Progression, or Severe Exacerbation? @ -No Poses a threat to life or bodily function? How? (Chest pain, USA, [place], pneumonia, PE, COPD, DKA, ARF, appy, cholecystitis, CVA, Diverticulitis, Homicidal, Suicidal, threat to staff... and all critical care pts) @ -No - Lab Data Result diagrams: 07/20/24 09:16 07/20/24 09:16 Lab Results 07/20/24 07/20/24 07/20/24 Range/Units 09:16 09:16 09:16 WBC 6.9 (3.8-10.6) k/uL RBC 3.99 L (4.30-5.90) m/uL Hgb 12.0 L (13.0-17.5) gm/dL Hct 37.4 L (39.0-53.0) % MCV 93.6 (80.0-100.0) fL MCH 30.2 (25.0-35.0) pg MCHC 32.2 (31.0-37.0) g/dL RDW 15.3 (11.5-15.5) % Plt Count 252 (150-450) k/uL MPV 8.1 Neutrophils % 73 % Lymphocytes % 18 % Monocytes % 5 % Eosinophils % 2 % Basophils % 0 % Neutrophils # 5.0 (1.3-7.7) k/uL Lymphocytes # 1.3 (1.0-4.8) k/uL Monocytes # 0.3 (0-1.0) k/uL Eosinophils # 0.1 (0-0.7) k/uL Basophils # 0.0 (0-0.2) k/uL PT 10.9 (10.0-12.5) sec INR 1.0 (<1.2) APTT 23.1 (22.0-30.0) sec Sodium 139 (137-145) mmol/L Potassium 3.9 (3.5-5.1) mmol/L Chloride 103 (98-107) mmol/L Carbon Dioxide 28 (22-30) mmol/L Anion Gap 8 mmol/L BUN 24 H (9-20) mg/dL Creatinine 1.18 (0.66-1.25) mg/dL Est GFR (CKD-EPI)AfAm 73 (>60 ml/min/1.73 sqM) Est GFR (CKD-EPI)NonAf 64 (>60 ml/min/1.73 sqM) Glucose 133 H (74-99) mg/dL Plasma Lactic Acid Matt (0.7-2.0) mmol/L Calcium 8.9 (8.4-10.2) mg/dL Total Bilirubin 0.6 (0.2-1.3) mg/dL AST 41 (17-59) U/L ALT 22 (4-49) U/L Alkaline Phosphatase 139 H (38-126) U/L Total Protein 6.8 (6.3-8.2) g/dL Albumin 4.4 (3.5-5.0) g/dL Amylase 68 (30-110) U/L Lipase 102 (23-300) U/L Urine Color Urine Appearance (Clear) Urine pH (5.0-8.0) Ur Specific [place] (1.001-1.035) Urine Protein (Negative) Urine Glucose (UA) (Negative) Urine Ketones (Negative) Urine Blood (Negative) Urine Nitrite (Negative) Urine Bilirubin (Negative) Urine Urobilinogen (<2.0) mg/dL Ur Leukocyte Esterase (Negative) Urine RBC (0-5) /hpf Urine WBC (0-5) /hpf Ur Squamous Epith Cells (0-4) /hpf Urine Mucus (None) /hpf Serum Alcohol <10 mg/dL 07/20/24 07/20/24 Range/Units 09:16 09:26 WBC (3.8-10.6) k/uL RBC (4.30-5.90) m/uL Hgb (13.0-17.5) gm/dL Hct (39.0-53.0) % MCV (80.0-100.0) fL MCH (25.0-35.0) pg MCHC (31.0-37.0) g/dL RDW (11.5-15.5) % Plt Count (150-450) k/uL MPV Neutrophils % % Lymphocytes % % Monocytes % % Eosinophils % % Basophils % % Neutrophils # (1.3-7.7) k/uL Lymphocytes # (1.0-4.8) k/uL Monocytes # (0-1.0) k/uL Eosinophils # (0-0.7) k/uL Basophils # (0-0.2) k/uL PT (10.0-12.5) sec INR (<1.2) APTT (22.0-30.0) sec Sodium (137-145) mmol/L Potassium (3.5-5.1) mmol/L Chloride (98-107) mmol/L Carbon Dioxide (22-30) mmol/L Anion Gap mmol/L BUN (9-20) mg/dL Creatinine (0.66-1.25) mg/dL Est GFR (CKD-EPI)AfAm (>60 ml/min/1.73 sqM) Est GFR (CKD-EPI)NonAf (>60 ml/min/1.73 sqM) Glucose (74-99) mg/dL Plasma Lactic Acid Matt 1.5 (0.7-2.0) mmol/L Calcium (8.4-10.2) mg/dL Total Bilirubin (0.2-1.3) mg/dL AST (17-59) U/L ALT (4-49) U/L Alkaline Phosphatase (38-126) U/L Total Protein (6.3-8.2) g/dL Albumin (3.5-5.0) g/dL Amylase (30-110) U/L Lipase (23-300) U/L Urine Color Yellow Urine Appearance Clear (Clear) Urine pH 6.0 (5.0-8.0) Ur Specific [place] 1.019 (1.001-1.035) Urine Protein 1+ H (Negative) Urine Glucose (UA) Negative (Negative) Urine Ketones Negative (Negative) Urine Blood Negative (Negative) Urine Nitrite Negative (Negative) Urine Bilirubin Negative (Negative) Urine Urobilinogen <2.0 (<2.0) mg/dL Ur Leukocyte Esterase Negative (Negative) Urine RBC 2 (0-5) /hpf Urine WBC 1 (0-5) /hpf Ur Squamous Epith Cells <1 (0-4) /hpf Urine Mucus Rare H (None) /hpf Serum Alcohol mg/dL - EKG Data -: EKG Interpreted by Me EKG Comments: EKG performed at 8: 57 sinus rhythm with rate of 74 OK 185 QRS 104 QT/QTc 432/460 Disposition Clinical Impression: Abdominal pain, Lung nodules, Hydronephrosis Disposition: HOME SELF-CARE Condition: Stable Instructions (If sedation given, give patient instructions): Abdominal Pain (ED) Additional Instructions: Please return to the Emergency Department if symptoms worsen or any other concerns. Is patient prescribed a controlled substance at d/c from ED?: No Referrals: None,Stated [Primary Care Provider] - 1-2 days Zaire Nolan MD [STAFF PHYSICIAN] - 1-2 days Mando Medrano DO [Doctor of Osteopathic Medicine] - 1-2 days Damian Zafar MD [STAFF PHYSICIAN] - 1-2 days Time of Disposition: 11:53
--- NOTE | 2024-07-20 11:25 | CT ---
EXAMINATION TYPE: CT abdomen pelvis w con DATE OF EXAM: 07/20/2024 COMPARISON: 12/27/2019 CLINICAL INDICATION: Male, 68 years old with history of abdominal pain; [facility], TECHNIQUE: Multiple axial images were obtained through the abdomen and pelvis following uneventful demonstration nonionic IV contrast material. FINDINGS: There is a new 7.6 mm nodule in the left lower lobe. There is a new 3.8 cm groundglass opacity in the right lower lobe posteriorly with a 9.4 mm nodular component. There is surgical absence of the gallbladder.. There is no biliary ductal dilatation. There is no focal mass or organomegaly involving the liver, pancreas, spleen or adrenal glands. There are 4 right renal calculi the largest of which is 7 mm. There is moderate right hydronephrosis but there is no obstructing calculus in the distal right ureter. The collecting system appears more p rominent than on the prior study where it was mildly dilated. There are 3 nonobstructing left renal calcifications largest of which is approximately 4 mm. . The caliber the abdominal aorta is normal is no retroperitoneal adenopathy or hemorrhage. The bowel loops are normal in caliber and there is no evidence of dilatation or obstruction. No infla mmatory changes are identified in the bowel wall or mesentery. There is no free intraperitoneal air or fluid. No pelvic mass, free fluid, abscess or adenopathy. There is marked multilevel degenerative disease from L1 through S1 but no focal osseous lesions. IMPRESSION: 1. Bilateral renal calcifications. 2. Moderate right hydronephrosis which has increased in the interval as described above. There is no definite obstructing calculus within the right ureter. 3. New lower lung nodules and further evaluation of the lung parenchyma in its entirety is recommendralph d. Recommend CT thorax. [facility], , 07/20/2024 11:22 AM
[2024-07-20] MEDS: ACET/COD 300 MG/30 MG STARTER PACK 6 TAB BTL PO STA (12:05)
[2024-07-20 12:07] VITALS: BP 178/80; PULSE 88; RESP 16
== END 2024-07-20 12:06 | disposition home or self-care (01) ==
LOC: EC 08:52
DX: N13.30 Unspecified hydronephrosis (principal); R91.1 Solitary pulmonary nodule; F17.200 Nicotine dependence, unspecified, uncomplicated
CPT/HCPCS: 36415; 80053; 82150; 83605; 83690; 85025; 85610; 85730; 81001; 74177; 99284; 96374; 96375; 96376; 96361; G0480; J2405; J1885; Q9967; 80320

== ENCOUNTER → 2024-08-03 | Outpatient (CLI) | payer OTHER ==
[2024-08-03 13:35] LABS: African American GFR (CKD) 77 (>60 ml/min/1.73 sqM); Blood Urea Nitrogen 25 mg/dL (9-20); Non-African American GFR(CKD) 67 (>60 ml/min/1.73 sqM)
[2024-08-03 14:35] LABS: African American GFR (CKD) 83 (>60 ml/min/1.73 sqM); Anion Gap 2 mmol/L; Blood Urea Nitrogen 26 mg/dL (9-20); Carbon Dioxide 29 mmol/L (22-30); Chloride 106 mmol/L (98-107); Glucose 117 mg/dL (74-99); Non-African American GFR(CKD) 72 (>60 ml/min/1.73 sqM); Potassium 5.2 mmol/L (3.5-5.1); Sodium 137 mmol/L (137-145)
--- NOTE | 2024-08-03 14:36 | CT ---
EXAMINATION TYPE: CT chest w con CT DLP: 348.9 mGycm, Automated exposure control for dose reduction was used. DATE OF EXAM: 08/03/2024 2:17 PM COMPARISON: CT abdomen and pelvis 07/20/2024, 12/27/2019, chest radiograph 08/08/2023 CLINICAL INDICATION:Male, 68 years old with history of R91.1 SPN; PHH, nodules TECHNIQUE: Multiple axial images were obtained through the chest following the administration of 100 cc of Isovue 300. . Coronal and sagittal reformats reviewed. FINDINGS: LUNGS/ PLEURA: No pleural effusion or pneumothorax. Slight decrease in right lower lobe patchy consol idation. Stable left lower lobe 5 mm pulmonary nodule (series 4, image 50). Right middle lobe 5 mm pu lmonary nodule (series 4, image 52). Right lower lobe bleb. AIRWAY: Patent and unremarkable.. HEART: Size within normal limits.No pericardial effusion. MEDIASTINUM: No evidence of adenopathy. VASCULATURE: No aortic aneurysm. MUSCULOSKELETAL: Mild disc degeneration changes are present throughout the thoracolumbar spine. No ag gressive osseous lesion. No acute osseous abnormality. SOFT TISSUES/LYMPH NODES: Bilateral gynecomastia. LOWER NECK: No significant findings. UPPER ABDOMEN: Moderate right hydronephrosis with hyperdense material identified within the proximal visualized ureter again. Nonobstructive bilateral renal calculi redemonstrated. Gallbladder is surgic al absent. IMPRESSION: 1. No acute thoracic process. 2. Slightly decreased right lower lobe patchy consolidation with couple of 5 mm pulmonary nodules. In a low-risk patient, no follow-up is recommended. In a high-risk patient consider optional CT chest i n 12 months. 3. Moderate right hydronephrosis redemonstrated with hyperdense material identified within the proxim al visualized ureter again. This may represent blood products however underlying malignancy is not en tirely excluded. Further evaluation with CT urogram is recommended. 4. Nonobstructive bilateral renal calculi. [facility], , 08/03/2024 2:34 PM
[2024-08-03 19:05] LABS: Basophils # (A) 0.03 X 10*3/uL (0.00-0.10); Basophils % (A) 0.5 %; Eosinophils # (A) 0.01 X 10*3/uL (0.04-0.35); Eosinophils % (A) 0.2 %; HCT 32.6 % (39.6-50.0); HGB 10.4 g/dL (13.0-17.0); Lymphocytes # (A) 0.55 X 10*3/uL (0.90-5.00); Lymphocytes % (A) 8.5 %; MCH 30.1 pg (27.0-32.0); MCHC 31.9 g/dL (32.0-37.0); MCV 94.5 FL (80.0-97.0); Mean Platelet Volume 10.7 FL (9.5-12.2); Monocytes # (A) 0.11 X 10*3/uL (0.20-1.00); Monocytes % (A) 1.7 %; NRBC Per 100 WBC 0 X 10*3/uL (0.00-0.01); Neutrophils # (A) 5.71 X 10*3/uL (1.80-7.70); Neutrophils % (A) 88.6 %; Platelet Count 195 X 10*3/uL (140-440); RBC 3.45 X 10*6/uL (4.40-5.60); RDW 16.2 % (11.5-14.5); WBC 6.44 X 10*3/uL (4.50-10.00)
[2024-08-03 19:53] LABS: Appearance,Urine Clear (Clear); Bilirubin,Urine Negative (Negative); Blood,Urine Negative (Negative); Color,Urine Yellow (Yellow); Ketones,Urine Negative (Negative); Nitrite,Urine Negative (Negative); PH, Urine 6.5; Specific Gravity,Urine 1.019 (1.001-1.030); Urobilinogen,Urine 0.2 E.U./DL
== END | disposition home or self-care (01) ==
LOC: RADCTMAIN 12:38
PROVIDERS: ATTEND Internal Medicine
DX: N13.30 Unspecified hydronephrosis (principal); R91.1 Solitary pulmonary nodule
CPT/HCPCS: 80048; 82565; 84520; 85025; 81003; 87086; 71260; Q9967

== ENCOUNTER 2024-08-08 05:57 | Day surgery (SDC) | payer MEDICARE, OTHER ==
--- NOTE | 2024-08-02 11:47 | P.HPIHPCON ---
History of Present Illness H&P Date: 08/02/24 Chief Complaint: Right hydronephrosis, bilateral renal stones This is a 68-year-old male history of right-sided hydronephrosis on review of imaging it is concerning for possible transitional cell carcinoma versus a ureteral stricture. In addition there is evidence of right sided renal stone, discussed with him at this point recommend proceeding with a cystoscopy and a ureteroscopy to evaluate that area. Discussed with him if abnormality is seen in the ureter we will proceed with biopsy, and if, able to advance the scope into the kidney then we will address his stones at the same setting. Aware of the risk which includes but not limited to bleeding, infection, injury to the ureter. Aware of the risk of potential needing additional procedures. He understood all the risk and agreed to proceed Consent for Procedure: I have explained the operation/procedure to the patient, including the risks, benefits, side effects, alternative therapies (including not receiving the proposed treatment or service), the likelihood of the patient achieving his/her goals, and potential recuperation problems for the procedure/sedation/analgesia, as well as any blood products, if indicated. I also explained to the patient the risks, benefits and side effects of the alternatives, as well as the risks related to not receiving the proposed procedure, care, treatment, or services. Past Medical History Past Medical History: Rheumatoid Arthritis (RA) History of Any Multi-Drug Resistant Organisms: None Reported Additional Past Surgical History / Comment(s): Sinus polyps removed, Broken Jaw repair Past Anesthesia/Blood Transfusion Reactions: No Reported Reaction Past Psychological History: No Psychological Hx Reported Smoking Status: Current every day smoker Past Alcohol Use History: Daily, Heavy Past Drug Use History: Marijuana - Past Family History Father Family Medical History: No Reported History Medications and Allergies Home Medications Medication Instructions Recorded Confirmed Type Albuterol Sulfate [Proair Hfa] 2 puff INHALATION RT-Q6H PRN 12/27/19 08/08/23 History buPROPion XL [Wellbutrin XL] 150 mg PO DAILY 08/08/23 08/08/23 History Allergies Allergy/AdvReac Type Severity Reaction Status Date / Time No Known Allergies Allergy Verified 07/20/24 09:05 Surgical - Exam - General no distress, no pain - Eyes normal ocular movement, no pale - ENT normal nares, normal mucosa - Respiratory normal expansion, normal respiratory effort - Abdomen Abdomen: soft, non tender - Psychiatric oriented to time, oriented to person, oriented to place Assessment and Plan Assessment: OR for right-sided ureteroscopy, homing laser lithotripsy, possible ureteral biopsy, and stent insertion
[2024-08-08] MEDS ORDERED: LACTATED RINGERS 1,000 ML IV SCH (05:59)
[2024-08-08] MEDS ORDERED: droPERidol 5 MG/2 ML VIAL IVP ONE (05:59)
[2024-08-08] MEDS ORDERED: LIDOCAINE 1% (10MG/ML) FOR IV START INTRADERMA PRN (05:59)
[2024-08-08 07:15] LABS: Glucose,Whole Blood 90 mg/dL (70-110)
--- NOTE | 2024-08-08 07:28 | XR ---
EXAMINATION TYPE: XR KUB DATE OF EXAM: 08/08/2024 6:16 AM COMPARISON: None. CLINICAL INDICATION: Male, 68 years old with history of Right Hydronephrosis M13.30, TECHNIQUE: XR KUB view(s) obtained. FINDINGS: Nonspecific bowel gas is present within small bowel loops as well as colon. Moderate fecal retention appears to be present Psoas margins are normal. No organomegaly is present. Couple of punctate calcifications are present overlying the inferior pole right kidney. IMPRESSION: 1. Right inferior pole renal stones [facility], , 08/08/2024 7:26 AM
[2024-08-08 07:32] LABS: Alcohol <10 mg/dL; Potassium 4.6 mmol/L (3.5-5.1)
[2024-08-08] MEDS ORDERED: PROPOFOL 10 MG/ML 20 ML VIAL IV ONE (07:33)
[2024-08-08] MEDS ORDERED: GLYCOPYRROLATE 0.2 MG/ML 2 ML VIAL ONE (07:33)
[2024-08-08] MEDS ORDERED: HYDROmorphone (PF) 1 MG/ML ONE (07:33)
[2024-08-08] MEDS ORDERED: LIDOCAINE 1% INJ 10MG/ML (20 ML MDV) ONE (07:33)
[2024-08-08] MEDS ORDERED: fentaNYL (PF) 50 MCG/ML 2 ML AMP ONE (07:33)
[2024-08-08] MEDS ORDERED: MIDAZOLAM 2 MG/2 ML VIAL ONE (07:33)
[2024-08-08] MEDS: LACTATED RINGERS 1,000 ML IV ONE ×2 (07:37→08:32)
[2024-08-08] MEDS: DEXAMETHASONE SOD PHOSPHATE 4 MG/ML 1 ML VIAL IV ONE (07:37)
[2024-08-08] MEDS: ONDANSETRON 4 MG/2 ML VIAL IVP ONE (07:37)
[2024-08-08] MEDS: IOHEXOL 350 MG/ML 100 ML in EMPTY BAG 1 BAG IRRIGATION ONE (08:01)
[2024-08-08 08:49] VITALS: TEMP 97
[2024-08-08 09:01] VITALS: RESP 16
--- NOTE | 2024-08-08 09:11 | FL ---
EXAMINATION TYPE: FL guidance operating room DATE OF EXAM: 08/08/2024 FLUOROSCOPY FL TIME 39 SEC DAP .[id number] CORREA one image is submitted. [facility], , 08/08/2024 9:09 AM
[2024-08-08] MEDS: HYDROmorphone 0.5 MG/0.5 ML SYRINGE IVP PRN (09:12)
[2024-08-08] MEDS: hydrALAZINE HCL 20 MG/ML 1 ML VIAL IVP PRN (09:31)
--- NOTE | 2024-08-08 10:20 | P.OP ---
Date of Procedure: 08/08/24 Preoperative Diagnosis: Right renal stone, hydronephrosis Postoperative Diagnosis: Right renal stone, right ureteral mass, bladder mass Procedure(s) Performed: Cystoscopy, right reterograde pyelogram, ureteroscopy, holmium laser lithotripsy, ureteral mass biopsy, bladder biopsy and fulguration Implants: None Anesthesia: GRACE Surgeon: Zaire Nolan Estimated Blood Loss (ml): 5 Pathology: other (Right ureteral mass, right renal stone, bladder mass) Condition: stable Disposition: PACU Indications for Procedure: This is a 68-year-old male history of right-sided hydronephrosis on review of imaging it is concerning for possible transitional cell carcinoma versus a ureteral stricture. In addition there is evidence of right sided renal stone, discussed with him at this point recommend proceeding with a cystoscopy and a ureteroscopy to evaluate that area. Discussed with him if abnormality is seen in the ureter we will proceed with biopsy, and if, able to advance the scope into the kidney then we will address his stones at the same setting. Aware of the risk which includes but not limited to bleeding, infection, injury to the ureter. Aware of the risk of potential needing additional procedures. He understood all the risk and agreed to proceed Operative Findings: Extensive right papillary mass involving the proximal ureter extending all the way up to the UPJ multiple small stones in the lower pole of the kidney, 1 cm papillary mass lateral to the right ureteral orifice Description of Procedure: Patient brought to the operating room, general anesthesia was induced. He was prepped and draped in sterile fashion placed in a dorsolithotomy position. Cystoscopy fitted through the 21 [place]uvian sheath was inserted per urethra, cystoscopy was performed which showed a solitary papillary mass that measures 1 cm that was lateral to the right ureteral orifice. Using the biopsy forceps the mass was removed entirely, area of the biopsy was fulgurated, and around the edges of the mass was also fulgurated. There was no injury to the right ureteral orifice. At this time the right ureter orifice was intubated with an open-ended catheter. Retrograde pyelogram was performed which showed an extensive filling defect at the level of the proximal ureter and extending all the way up to the UPJ, the area filling defect measured greater than 4 cm. At this time a sensor wire was advanced through the catheter and the catheter was removed with the wire in place. Next an 1113 [place]uvian access sheath was passed over the wire and into the midl ureter. I advanced the flexible ureteroscope th rough the access sheath, the scope was advanced all the way up to the level of the filling defect at this time a large hypervascular papillary mass was seen. Multiple biopsies were obtained using the biopsy forceps, urine cytology was also obtained of that area. I was able to advance the scope all the way up into the kidney, renoscopy of the kidney was performed which showed no additional papillary lesion in the kidney, there was a couple of small stones in the lower pole, those were dusted using the holmium laser. Repeat renoscopy showed no abnormality in the kidney. Pullback ureteroscopy was performed showed no injury to the ureter or any evidence of bleeding. There was no ureteral edema thus a stent was not placed. The bladder was emptied at the end of the case. Patient tolerated procedure well was taken to recovery in stable condition, at this point he will follow-up in 1 to 2 weeks to review his pathology
[2024-08-08] MEDS: KETOROLAC 15 MG/ML 1 ML VIAL IVP STA (10:31)
[2024-08-08] MEDS: MEPERIDINE 25 MG/ML SYRINGE IVP STA (10:38)
[2024-08-08 11:06] VITALS: BP 156/69; PULSE 65
== END 2024-08-08 11:23 | disposition home or self-care (01) ==
LOC: OR 05:57
PROVIDERS: ATTEND Urology
DX: C66.1 Malignant neoplasm of right ureter (principal); N13.2 Hydronephrosis with renal and ureteral calculous obstruction; M06.9 Rheumatoid arthritis, unspecified; J44.9 Chronic obstructive pulmonary disease, unspecified; F17.200 Nicotine dependence, unspecified, uncomplicated; D64.9 Anemia, unspecified; F41.9 Anxiety disorder, unspecified; Z79.52 Long term (current) use of systemic steroids; Z79.899 Other long term (current) drug therapy; Z97.4 Presence of external hearing-aid
CPT/HCPCS: 52234; 52353; 88108; 88305; 84132; 80320; 74018; C1758; C1769 ×2; J2250; J0360; J1100; J0690; J2405; J2003; J3010; J1171 ×2; J1885; J2704; Q9967; J1596; J2175

== ENCOUNTER → 2024-09-07 | Outpatient (CLI) | payer OTHER | LOC: CPPFTMAIN 16:00 | PROVIDERS: ATTEND Internal Medicine Critical Care Medicine | DX: J44.9 Chronic obstructive pulmonary disease, unspecified (principal); F12.90 Cannabis use, unspecified, uncomplicated; F17.210 Nicotine dependence, cigarettes, uncomplicated | CPT/HCPCS: 94060; 94726; 94729 ==

== ENCOUNTER 2024-10-06 05:40 | Day surgery (SDC) | payer OTHER ==
--- NOTE | 2024-10-03 09:27 | P.HPIHPCON ---
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 This was confirmed ureteroscopically and on biopsy. Discussed with him given this finding I do recommend proceeding with a right-sided nephro ureterectomy. He is aware of the risk which include but not limited to bleeding, infection, injury to nearby organs. Discussed also the risk of needing hemodialysis in the short and long-term. Risk of cancer recurrence and the need for additional treatments was also discussed. He understood all the risk and agreed to proceed Consent for Procedure: I have explained the operation/procedure to the patient, including the risks, benefits, side effects, alternative therapies (including not receiving the proposed treatment or service), the likelihood of the patient achieving his/her goals, and potential recuperation problems for the procedure/sedation/analgesia, as well as any blood products, if indicated. I also explained to the patient the risks, benefits and side effects of the alternatives, as well as the risks related to not receiving the proposed procedure, care, treatment, or services. Past Medical History Past Medical History: Rheumatoid Arthritis (RA) Additional Past Medical History / Comment(s): deaf Rt. ear, wears hearing aid Lt. ear, hydronephrosis, anemia, fatigue, states Dr. Medrano put him on prednisone for his lungs, scheduled for iron transfusion 08/17/23 History of Any Multi-Drug Resistant Organisms: None Reported Past Surgical History: Cholecystectomy Additional Past Surgical History / Comment(s): Sinus polyps removed, Broken Jaw repair Past Anesthesia/Blood Transfusion Reactions: No Reported Reaction Past Psychological History: No Psychological Hx Reported - Past Family History Father Family Medical History: No Reported History Medications and Allergies Home Medications Medication Instructions Recorded Confirmed Type Albuterol Sulfate [Proair Hfa] 2 puff INHALATION RT-Q6H PRN 12/27/19 08/08/24 History Acetaminophen-Codeine 300-30mg 1 tab PO Q6H PRN 08/04/24 08/04/24 History [Tylenol w/codeine #3] Ferrous Sulfate [Slow Release Iron] 1 tab PO DAILY 08/04/24 08/08/24 History LORazepam [Ativan] 0.5 mg PO BID 08/04/24 08/04/24 History Nicotine 21Mg/24Hr Patch [Habitrol] 1 each TRANSDERM DAILY 08/04/24 08/04/24 History predniSONE 0 mg PO DIRECTED 08/04/24 08/08/24 History Cephalexin [Keflex] 500 mg PO Q8HR #15 cap 08/08/24 Rx Ketorolac [Toradol] 10 mg PO Q6HR PRN #15 tab 08/08/24 Rx Allergies Allergy/AdvReac Type Severity Reaction Status Date / Time No Known Allergies Allergy Verified 08/08/24 06:51 Surgical - Exam - General no distress, no pain - Eyes normal ocular movement, no pale - ENT normal nares, normal mucosa - Respiratory normal expansion, normal respiratory effort - Abdomen Abdomen: soft, non tender Assessment and Plan Assessment: OR for right-sided nephro ureterectomy this will be done robotically
[2024-10-03 15:43] VITALS: BMI 23.8
[2024-10-06] MEDS: IV FLUID CONTINUATION 1,000 ML IV ONE ×2 (06:21)
[2024-10-06] MEDS: LACTATED RINGERS 1,000 ML IV SCH (06:22)
[2024-10-06] MEDS: ONDANSETRON 4 MG/2 ML VIAL IVP ONE (06:27)
[2024-10-06] MEDS: DEXAMETHASONE SOD PHOSPHATE 4 MG/ML 1 ML VIAL IV ONE (06:28)
[2024-10-06] MEDS: IPRATROPIUM-ALBUTEROL 3 ML NEB INHALATION STA (06:49)
[2024-10-06] MEDS ORDERED: MIDAZOLAM 2 MG/2 ML VIAL IV PRN (07:00)
[2024-10-06] MEDS: HYDROCORTISONE SUCCINATE 100 MG/2 ML VIAL IV STA (07:02)
[2024-10-06] MEDS ORDERED: GLYCOPYRROLATE 0.2 MG/ML 2 ML VIAL ONE (07:25)
[2024-10-06] MEDS ORDERED: PROPOFOL 10 MG/ML 20 ML VIAL IV ONE (07:25)
[2024-10-06] MEDS ORDERED: NEOSTIGMINE 1 MG/ML 10 ML VIAL ONE (07:25)
[2024-10-06] MEDS ORDERED: HYDROmorphone (PF) 1 MG/ML ONE (07:25)
[2024-10-06] MEDS ORDERED: LIDOCAINE 1% INJ 10MG/ML (20 ML MDV) ONE (07:25)
[2024-10-06] MEDS ORDERED: fentaNYL (PF) 50 MCG/ML 2 ML AMP ONE (07:25)
[2024-10-06] MEDS ORDERED: MIDAZOLAM 2 MG/2 ML VIAL ONE (07:25)
[2024-10-06] MEDS ORDERED: ROCURONIUM 10 MG/ML (5 ML VIAL) IV ONE (07:25)
[2024-10-06] MEDS: BUPIVACAINE (PF) 0.25% 30 ML VIAL SQ ONE ×2 (08:23)
[2024-10-06] MEDS: LACTATED RINGERS 1,000 ML IV ONE (10:53)
[2024-10-06] MEDS ORDERED: ALBUTEROL HFA INHALER INHALATION PRN (11:30)
[2024-10-06] MEDS ORDERED: ONDANSETRON 4 MG/2 ML VIAL IVP PRN (11:32)
[2024-10-06] MEDS: HYDROmorphone 0.5 MG/0.5 ML SYRINGE IVP PRN (11:36)
--- NOTE | 2024-10-06 11:41 | P.OP ---
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 This was confirmed ureteroscopically and on biopsy. Discussed with him given this finding I do recommend proceeding with a right-sided nephro ureterectomy. He is aware of the risk which include but not limited to bleeding, infection, injury to nearby organs. Discussed also the risk of needing hemodialysis in the short and long-term. Risk of cancer recurrence and the need for additional treatments was also discussed. He understood all the risk and agreed to proceed Description of Procedure: The patient was taken to the operating room . General anesthesia was induced. He was prepped and draped in sterile fashion, and was placed in modified flank position . All pressure points were padded. The abdominal insufflation was achieved with the Veress needle. A 8 mm camera port was placed. Robotic trocars and study assistant ports were placed under direct vision. a 5 mm liver retractor was placed. Patient had significant hepatomegaly, there was some adhesions along the liver and the kidney. The robot was docked into place. Adhesion along the liver and the kidney was taken down robotically, after taking down the adhesions I was able to place the liver retractor and retract the liver. The colon was mobilized medially by incising along the white line of Toldt. Next the duodenum was kocherized. At this time the vena cava was exposed. Next the ureter was retracted anteriorly off the psoas muscle. Of note along the proximal ureter and the renal pelvis was quite distended. Dissection proceeded cranially towards the renal hilum. The upper pole attachments were dissected. Care was taken to safely mobilize the kidney free of all visceral structures.The renal vessels were dissected. At this point the renal vessels were exposed. Next the renal hilum was ligated using the vascular stapler. The adrenal gland was mobilized. Lateral and remaining kidney attachments were released. The ureter was dissected further distally. The gonadal vein was ligated using the vascular stapler. Dissection was carried down of the ureter endpoints of bleeding was controlled with cautery until the intramural ureter. Next the vas was divided. And the ureter was dissected all the way down to the level of the ureteral orifice, at this point in the ureter and a portion of the bladder cuff was excised. The bladder was closed using 2 oh V-Loc in running fashion. The closure was watertight at 120 mL. At this point a KRISTAL drain was placed in the right lower quadrant at the site of the progress port. The specimen was bagged. Hemostatic agent were applied to the surgical field. The robot was then de- docked and the specimen was then removed by extending the study assistant port. Fascia was closed with one layer using #1 PDS Skin was closed with subcuticular sutures and dermabond. The patient was awoken from general anesthesia in stable condition. Please refer to the final pathology report for final diagnosis
[2024-10-06] MEDS: methocarbamoL 750 MG TAB PO SCH (14:06)
[2024-10-06] MEDS: DEXTROSE 5%-0.45% NACL 1,000 ML IV SCH (14:07)
[2024-10-06] MEDS ORDERED: LORazepam 2 MG/ML INJ IV PRN ×2 (15:42)
[2024-10-06] MEDS ORDERED: LORazepam 1 MG TAB PO PRN (15:45)
[2024-10-06] MEDS: HYDROmorphone 1 MG/ML 1 ML SYRINGE IVP PRN (15:48)
--- NOTE | 2024-10-06 17:44 | P.CONS ---
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 Patient reported that his pain is well-controlled with medication. He has a Durham catheter in place. He has not passed flatus, bowel movement or been ambulatory. He denied fever, chills, cough, chest pain, palpitations, leg pain, extremity swelling, abdominal pain, extremity weakness, lightheadedness, dizziness, recent travel or recent illness. Most recent labs on 09/27 showed hemoglobin 14.3, WBC 6.42, platelet count 1 59,000, potassium 4.2, sodium 142, chloride 102, bicarb 28.3, BUN 13.1, creatinine 1.2, glucose 89, calcium 9.2. Vitals on evaluation showed temperature 97.5 F, pulse rate 64, blood pressure 151/79, O2 saturation 93% on 2 L nasal cannula Review of systems: Pertinent positives and negatives as discussed in HPI, a complete review of systems was performed and all other systems are negative. Physical examination: Vital signs reviewed General: non toxic, no distress, appears at stated age, on nasal cannula Derm: no unusual rashes/lesions, warm Head: atraumatic, normocephalic, symmetric Eyes: EOMI, no lid lag, anicteric sclera, pupils equal round reactive to light ENT: Nose and ears atraumatic Neck: No cervical lymphadenopathy, trachea midline, supple Mouth: no lip lesion, mucus membranes moist Cardiovascular: S1S2 reg, no murmur Lungs: Bibasilar decreased breath sounds, no rhonchi, no rales, no accessory muscle use Abdominal: soft, nondistended, nontender to palpation, no guarding, suprapubic drain in place with dry and clean dressing, currently draining serosanguineous fluid, noted surgical ports sites were clean and dry with no surrounding erythema or discharge Ext: muscle strength 5 out of 5 in all 4 extremities grossly, no gross muscle atrophy, no contractures, positive dorsalis pedis pulse bilateral, no edema Neuro: CN II-XI grossly intact, no gross focal neuro deficits Psych: Alert, oriented, appropriate affect and mood Assessment/Plan: 68-year-old male with rheumatoid arthritis, anemia, current heavy every day smoker, current heavy daily alcohol intake here for medical management status post right sided robotic nephroureterectomy due to 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 Chronic conditions: Rheumatoid arthritis Anemia Nicotine dependence Alcohol dependence, impending alcohol withdrawal -Ativan per [facility] protocol -Seizure precautions -Thiamine 100 mg p.o. daily -Resume home oral iron tablets p.o. daily -Daily nicotine patch -Check CBC and BMP in the morning #. 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 Thank you for this consult. I have seen and evaluated the patient today. Discussed with the resident and agree with the residents finding and plan as documented in the resident's note. Changes highlighted in blue font. Past Medical History Past Medical History: Rheumatoid Arthritis (RA) Additional Past Medical History / Comment(s): deaf Rt. ear, wears hearing aid Lt. ear, hydronephrosis, anemia, fatigue History of Any Multi-Drug Resistant Organisms: None Reported Past Surgical History: Cholecystectomy Additional Past Surgical History / Comment(s): Sinus polyps removed, Broken Jaw repair, right nephrectomy r/t cancer 10/06/24 Past Anesthesia/Blood Transfusion Reactions: No Reported Reaction Past Psychological History: No Psychological Hx Reported Smoking Status: Current every day smoker Past Alcohol Use History: Daily, Heavy Additional Past Alcohol Use History / Comment(s): 3 bourbon drinks daily for past week, before then 1/5th daily Past Drug Use History: Marijuana Additional Drug Use History / Comment(s): very occasional marijuana use - Past Family History Father Family Medical History: No Reported History Medications and Allergies Home Medications Medication Instructions Recorded Confirmed Type Ferrous Sulfate [Slow Release Iron] 1 tab PO DAILY 08/04/24 10/06/24 History LORazepam [Ativan] 0.5 mg PO BID 08/04/24 10/03/24 History Nicotine 21Mg/24Hr Patch [Habitrol] 1 each TRANSDERM DAILY 08/04/24 10/03/24 History Naproxen Sodium [Aleve] 440 mg PO DAILY PRN 10/03/24 10/06/24 History Albuterol Inhaler [Ventolin Hfa 1 puff INHALATION ONCE PRN 10/06/24 10/06/24 History Inhaler] Allergies Allergy/AdvReac Type Severity Reaction Status Date / Time No Known Allergies Allergy Verified 10/06/24 06:01 Physical Exam Vitals: Vital Signs Temp Pulse Resp BP Pulse Ox 10/06/24 14:22 64 151/79 93 L 10/06/24 13:10 97.5 F L 65 156/76 92 L 10/06/24 12:45 77 20 150/75 92 L 10/06/24 12:15 67 16 148/72 96 10/06/24 12:00 83 23 158/76 91 L 10/06/24 11:45 92 25 H 165/78 92 L 10/06/24 11:33 85 30 H 174/83 100 10/06/24 11:18 97.0 F L 106 H 14 192/91 96 10/06/24 06:22 97.7 F 66 16 185/83 97 Intake and Output 10/06/24 10/06/24 10/06/24 06:59 14:59 22:59 Intake Total 600 1950 Output Total 250 Balance 600 1700 Intake: IV 600 1950 Output: Urine 200 Estimated Blood Loss 50 Other: Voiding Method Indwelling Catheter Weight 81.8 kg 81.8 kg
[2024-10-06] MEDS: LORazepam 2 MG/ML INJ IV PRN (17:46)
[2024-10-06] MEDS: LORazepam 0.5 MG TAB PO SCH (21:19)
[2024-10-07 07:30] LABS: African American GFR (CKD) 63 (>60 ml/min/1.73 sqM); Anion Gap 3 mmol/L; Blood Urea Nitrogen 18 mg/dL (9-20); Carbon Dioxide 30 mmol/L (22-30); Chloride 101 mmol/L (98-107); Glucose 99 mg/dL (74-99); Non-African American GFR(CKD) 55 (>60 ml/min/1.73 sqM); Potassium 4.3 mmol/L (3.5-5.1); Sodium 134 mmol/L (137-145)
[2024-10-07 07:46] LABS: Anisocytosis Slight; Basophils % (A) 0 %; Eosinophils % (A) 0 %; HCT 40.3 % (39.0-53.0); HGB 12.7 gm/dL (13.0-17.5); Lymphocytes # (A) 0.7 k/uL (1.0-4.8); Lymphocytes % (A) 8 %; MCH 33.3 pg (25.0-35.0); MCHC 31.5 g/dL (31.0-37.0); MCV 105.9 fL (80.0-100.0); Macrocytosis Marked; Mean Platelet Volume 9.3; Monocytes # (A) 0.4 k/uL (0-1.0); Monocytes % (A) 4 %; Neutrophils # (A) 7.4 k/uL (1.3-7.7); Neutrophils % (A) 87 %; Platelet Count 118 k/uL (150-450); RBC 3.81 m/uL (4.30-5.90); RDW 17.8 % (11.5-15.5); WBC 8.6 k/uL (3.8-10.6)
[2024-10-07 08:31] VITALS: BP 130/72; PULSE 70; RESP 20; TEMP 98.5
[2024-10-07] MEDS: NICOTINE 21MG/24HR PATCH TRANSDERM SCH (08:57)
[2024-10-07] MEDS: THIAMINE 100 MG TAB PO SCH (08:57)
[2024-10-07] MEDS: MULTIVITAMINS, THERA 1 EACH TAB PO SCH (08:57)
[2024-10-07] MEDS: FERROUS SULFATE 325 MG TAB PO SCH (08:57)
[2024-10-07] MEDS: FOLIC ACID 1 MG TAB PO SCH (08:57)
[2024-10-07] MEDS ORDERED: HYDROmorphone 1 MG/ML 1 ML SYRINGE IVP PRN (09:33)
[2024-10-07] MEDS: FAMOTIDINE 20 MG TAB PO SCH (10:30)
--- NOTE | 2024-10-07 12:01 | P.PN ---
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 Patient reported that his pain is well-controlled with medication. He has a [place] catheter in place. He has not passed flatus, bowel movement or been ambulatory. He denied fever, chills, cough, chest pain, palpitations, leg pain, extremity swelling, abdominal pain, extremity weakness, lightheadedness, dizzin ess, recent travel or recent illness. Most recent labs on 09/27 showed hemoglobin 14.3, WBC 6.42, platelet count 1 59,000, potassium 4.2, sodium 142, chloride 102, bicarb 28.3, BUN 13.1, creatinine 1.2, glucose 89, calcium 9.2. Vitals on evaluation showed temperature 97.5 F, pulse rate 64, blood pressure 151/79, O2 saturation 93% on 2 L nasal cannula 10/07/2024 patient seen and examined at bedside. No acute events overnight. Required 1 mg of Ativan overnight. WBC 8.6, hemoglobin 12.7, MCV 105.9, platelet count 118,000, sodium 134, potassium 4.3, chloride 101, bicarb 30, BUN 18, creatinine 1.34, glucose 99, calcium 9 Review of systems: Pertinent positives and negatives as discussed in HPI, a complete review of systems was performed and all other systems are negative. Pertinent imaging and labs reviewed. Physical examination: Vital signs reviewed General: non toxic, no distress, appears at stated age, on nasal cannula Derm: no unusual rashes/lesions, warm Head: atraumatic, normocephalic, symmetric Eyes: EOMI, no lid lag, anicteric sclera, pupils equal round reactive to light ENT: Nose and ears atraumatic Neck: No cervical lymphadenopathy, trachea midline, supple Mouth: no lip lesion, mucus membranes moist Cardiovascular: S1S2 reg, no murmur Lungs: Bibasilar decreased breath sounds, no rhonchi, no rales, no accessory muscle use Abdominal: soft, nondistended, nontender to palpation, no guarding, suprapubic drain in place with dry and clean dressing, currently draining yellow nonbloody fluid, noted surgical ports sites were clean and dry with no surrounding erythema or discharge Ext: muscle strength 5 out of 5 in all 4 extremities grossly, no gross muscle atrophy, no contractures, positive dorsalis pedis pulse bilateral, no edema Neuro: CN II-XI grossly intact, no gross focal neuro deficits Psych: Alert, oriented, appropriate affect and mood Assessment/Plan: Assessment/Plan: 68-year-old male with rheumatoid arthritis, anemia, current heavy every day smoker, current heavy daily alcohol intake here for medical management status post right sided robotic nephroureterectomy due to 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 DELIA -Creatinine 1.34 -Currently on D5/half-normal saline at 125 cc/h. Decreased rate to 75cc/hr -Monitor BMP -Avoid nephrotoxic agents #. Macrocytic anemia #. Thrombocytopenia -Likely due to chronic alcohol intake -Hemoglobin 12.7, MCV 105.9 -Monitor CBC -Check B12 and folate #. Chronic conditions: Rheumatoid arthritis Anemia Nicotine dependence Alcohol dependence, impending alcohol withdrawal -Ativan per [facility] protocol -Seizure precautions -Thiamine 100 mg p.o. daily -Resume home oral iron tablets p.o. daily -Daily nicotine patch -Check CBC and BMP in the morning #. 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 please excuse any grammatical, word or spelling errors. Patient is otherwise medically optimized for discharge I have seen and evaluated the patient today. Discussed with the resident and agree with the residents finding and plan as documented in the resident's note. Changes highlighted in blue font. Objective - Vital Signs Vital signs: Vital Signs Temp 97.5 F L 10/07/24 01:34 Pulse 72 10/07/24 01:34 Resp 17 10/07/24 01:34 BP 153/83 10/07/24 03:48 Pulse Ox 99 10/07/24 01:34 FiO2 Intake & Output 10/06/24 10/07/24 10/07/24 18:59 06:59 18:59 Intake Total 1950 Output Total 550 1100 Balance 1400 -1100 Weight 81.8 kg Intake: IV 1950 Output: Urine 500 1100 Estimated Blood Loss 50 Other: Voiding Method Indwelling Catheter Indwelling Catheter - Labs CBC & Chem 7: 10/07/24 05:24 10/07/24 05:24 Labs: Abnormal Lab Results - Last 24 Hours (Table) 10/07/24 Range/Units 05:24 Sodium 134 L (137-145) mmol/L Creatinine 1.34 H (0.66-1.25) mg/dL
--- NOTE | 2024-10-07 12:22 | P.DS ---
Providers Attending physician: Zaire Nolan MD Consults: 10/06/24 15:41 Consult Physician Routine Consulting Provider: Eulogio Fierro Consult Reason/Comments: medical management Do you want consulting provider notified?: Yes Primary care physician: Stated None Hospital Course: This is a 68-year-old male with a history of right sided transitional cell carcinoma involving the right proximal ureter. Underwent a robotic right-sided nephro ureterectomy on October 06. Please see op note dated October 06 for surgery details. Patient was admitted to the hospital postoperatively. KRISTAL drain was removed on postop day #1. Internal medicine service was consulted and he was deemed cleared for discharge on postop day #1. He was discharged home with a [place] catheter. At time of discharge he was tolerating a diet, ambulat ing, pain was controlled Plan - Discharge Summary Discharge Rx Participant: No New Discharge Prescriptions: New LORazepam [Ativan] 1 mg PO HS 7 Days #7 tab HYDROcodone/APAP 5-325MG [[place] 5-325] 1 tab PO Q4HR PRN 7 Days #30 tab PRN Reason: Pain No Action LORazepam [Ativan] 0.5 mg PO BID Naproxen Sodium [Aleve] 440 mg PO DAILY PRN PRN Reason: Pain Ferrous Sulfate [Slow Release Iron] 1 tab PO DAILY Nicotine 21Mg/24Hr Patch [Habitrol] 1 each TRANSDERM DAILY Albuterol Inhaler [Ventolin Hfa Inhaler] 1 puff INHALATION ONCE PRN PRN Reason: Shortness Of Breath Discharge Medication List Ferrous Sulfate [Slow Release Iron] 1 tab PO DAILY 08/04/24 [History] LORazepam [Ativan] 0.5 mg PO BID 08/04/24 [History] Nicotine 21Mg/24Hr Patch [Habitrol] 1 each TRANSDERM DAILY 08/04/24 [History] Naproxen Sodium [Aleve] 440 mg PO DAILY PRN 10/03/24 [History] Albuterol Inhaler [Ventolin Hfa Inhaler] 1 puff INHALATION ONCE PRN 10/06/24 [History] HYDROcodone/APAP 5-325MG [[place] 5-325] 1 tab PO Q4HR PRN 7 Days #30 tab 10/07/24 [Rx] LORazepam [Ativan] 1 mg PO HS 7 Days #7 tab 10/07/24 [Rx] Follow up Appointment(s)/Referral(s): Glenis Ye MD [RESIDENT] - 1 Week () Discharge/Stand Alone Forms: NA Meetings in [place], [facility] Meetings [place], [facility] Substance Abuse Facilities
[2024-10-07] MEDS: HYDROcodone/APAP 5-325MG 1 EACH TAB PO PRN (13:17)
== END 2024-10-07 13:28 | disposition home or self-care (01) ==
LOC: OR 05:40 → 4SSUR 12:38 → OR 10-07 13:28
PROVIDERS: ATTEND Urology
DX: C66.1 Malignant neoplasm of right ureter (principal); D53.9 Nutritional anemia, unspecified; N17.9 Acute kidney failure, unspecified; M06.9 Rheumatoid arthritis, unspecified; R16.0 Hepatomegaly, not elsewhere classified; K66.0 Peritoneal adhesions (postprocedural) (postinfection); F17.200 Nicotine dependence, unspecified, uncomplicated; Z90.49 Acquired absence of other specified parts of digestive tract; Z79.899 Other long term (current) drug therapy
CPT/HCPCS: 52354; S2900; 80048; 85025; 88307; 94760

== ENCOUNTER 2024-12-25 13:52 | Emergency (ER) | payer OTHER ==
--- NOTE | 2024-12-25 15:15 | ED ---
General Adult HPI - General Source: patient, RN notes reviewed Mode of arrival: ambulatory Limitations: no limitations <Christine James - Last Filed: 12/25/24 15:14> - General Source: patient, RN notes reviewed, old records reviewed <Eduar Pinto - Last Filed: 12/25/24 20:58> - General Chief complaint: Shortness of Breath Stated complaint: Vomiting,SOB Time Seen by Provider: 12/25/24 14:10 - History of Present Illness Initial comments: quick [age]un-62-fmnd-old male presenting to the emergency department with complaint of cold and flulike symptoms over the past 2 weeks. States that he has been experiencing congestion, rhinorrhea, productive cough and "chest congestion". He endorses associated nausea, vomiting, fevers, chills. Denies history of VA, cardiac stents, CHF. (Christine James) Patient is a 69-year-old male who presents emergency department complaining of cough, congestion, productive cough of yellowish-green sputum. Has been ongoing for 2 weeks. Seems to be getting worse. Has a history of emphysema. Denies any significant cardiac history. No history of CHF. States he has been using his normal inhaler at home without much improvement. Presents for further evaluation. Patient originally seen as a quick note to evaluate the patient when he was placed in a room. (Eduar Pinto) - Related Data Home Medications Medication Instructions Recorded Confirmed Ferrous Sulfate [Slow Release Iron] 1 tab PO DAILY 08/04/24 10/06/24 LORazepam [Ativan] 0.5 mg PO BID 08/04/24 10/03/24 Nicotine 21Mg/24Hr Patch [Habitrol] 1 each TRANSDERM DAILY 08/04/24 10/03/24 Naproxen Sodium [Aleve] 440 mg PO DAILY PRN 10/03/24 10/06/24 Albuterol Inhaler [Ventolin Hfa 1 puff INHALATION ONCE PRN 10/06/24 10/06/24 Inhaler] Previous Rx's Medication Instructions Recorded HYDROcodone/APAP 5-325MG [[place] 1 tab PO Q4HR PRN 7 Days #30 tab 10/07/24 5-325] LORazepam [Ativan] 1 mg PO HS 7 Days #7 tab 10/07/24 Albuterol Inhaler [Ventolin Hfa 1 - 2 puff INHALATION Q6H PRN #1 12/25/24 Inhaler] each Amoxic-Pot Clav 875-125Mg 1 tab PO BID 7 Days #14 tab 12/25/24 [Augmentin 875-125] predniSONE [Deltasone] 40 mg PO DAILY 5 Days #10 tab 12/25/24 Allergies Allergy/AdvReac Type Severity Reaction Status Date / Time No Known Allergies Allergy Verified 12/25/24 13:56 Review of Systems ROS Other: All systems not noted in ROS Statement are negative. <Christine James - Last Filed: 12/25/24 15:14> ROS Other: All systems not noted in ROS Statement are negative. <Eduar Pinto - Last Filed: 12/25/24 20:58> ROS Statement: Those systems with pertinent positive or pertinent negative responses have been documented in the HPI. Review of Systems: CONST: Denies fever EYES: Denies blurry vision ENT: Endorses nasal congestion C/V: Denies Chest pain RESP: Endorses cough, congestion GI: Denies abdominal pain : Denies dysuria SKIN: Denies rash. MSK: Denies joint pain. NEURO: Denies headache (Eduar Pinto) Past Medical History Past Medical History: Rheumatoid Arthritis (RA) Additional Past Medical History / Comment(s): deaf Rt. ear, wears hearing aid Lt. ear, hydronephrosis, anemia, fatigue, states Dr. Medrano put him on prednisone for his lungs, scheduled for iron transfusion 08/17/23 History of Any Multi-Drug Resistant Organisms: None Reported Past Surgical History: Cholecystectomy Additional Past Surgical History / Comment(s): Sinus polyps removed, Broken Jaw repair, right nephrectomy r/t cancer 10/06/24 Past Anesthesia/Blood Transfusion Reactions: No Reported Reaction Past Psychological History: No Psychological Hx Reported Smoking Status: Current every day smoker Past Alcohol Use History: Daily, Heavy Past Drug Use History: Marijuana - Past Family History Father Family Medical History: No Reported History <Christine James - Last Filed: 12/25/24 15:14> General Exam Limitations: no limitations <Christine James - Last Filed: 12/25/24 15:14> <Eduar Pinto - Last Filed: 12/25/24 20:58> - General Exam Comments Initial Comments: Visual Physical Exam Vital signs reviewed General: Well-appearing, nontoxic, no acute distress. Head: Normocephalic, atraumatic Eyes: PERRLA, EOMI ENT: Airway patent Chest: Nonlabored breathing Skin: No visual rash, normal skin tone Neuro: Alert and oriented 3 Musculoskeletal: No gross abnormalities (Christine James) General: Appears in no acute distress. HEAD: Normal with no signs of head trauma. EYES: PERRLA, EOMI, conjunctiva normal, no discharge. ENT: Hearing grossly intact, normal oropharynx. RESPIRATORY: Bilateral end expiratory wheezing. No hypoxia. No increased work of breathing. C/V: Regular rate and rhythm. S1 and S2 auscultated, no edema, peripheral pulses 2+ and intact throughout ABD: Abd is soft, nontender, nondistended EXT: Normal range of motion, no obvious deformity SKIN: No rashes or lesions observed on exposed skin. NEURO: Alert and oriented x 4. (Eduar Pinto) Course Vital Signs 12/25/24 12/25/24 12/25/24 13:53 18:20 18:32 Temperature 98.1 F Pulse Rate 90 70 Respiratory 18 18 18 Rate Blood Pressure 190/93 O2 Sat by Pulse 97 Oximetry 12/25/24 12/25/24 18:37 19:24 Temperature 97.8 F Pulse Rate 72 86 Respiratory 18 16 Rate Blood Pressure 168/78 O2 Sat by Pulse 98 Oximetry Medical Decision Making <Christine James - Last Filed: 12/25/24 15:14> - Lab Data Result diagrams: 12/25/24 16:49 12/25/24 16:49 - EKG Data -: EKG Interpreted by Me <Eduar Pinto - Last Filed: 12/25/24 20:58> - Medical Decision Making I completed the quick note portion of this chart signed Christine James PA-C (Christine James) Was pt. sent in by a medical professional or institution (MARITA Zimmer, DIRECTOR OF EPIDEMIOLOGY, urgent care, hospital, or correction...) When possible be specific @ -No Did you speak to anyone other than the patient for history (EMS, parent, family, police, friend...)? What history was obtained from this source @ -No Did you review nursing and triage notes (agree or disagree)? Why? @ -I reviewed and agree with nursing and triage notes Were old charts reviewed (outside hosp., previous admission, EMS record, old EKG, old radiological studies, urgent care reports/EKG's, correction records)? Report findings @ -No old charts were reviewed Differential Diagnosis (chest pain, altered mental status, abdominal pain women, abdominal pain men, vaginal bleeding, weakness, fever, dyspnea, syncope, headache, dizziness, GI bleed, back pain, seizure, CVA, palpatations, mental health, musculoskeletal)? @ -COPD, pneumonia, bronchitis. This list is not all-inclusive. EKG interpreted by me (3pts min.). @ -As above X-rays interpreted by me (1pt min.). @ -Chest x-ray shows findings concerning for possible pneumonia in the hand straightener ior lung base. CT interpreted by me (1pt min.). @ -None done U/S interpreted by me (1pt. min.). @ -None done What testing was considered but not performed or refused? (CT, X-rays, U/S, labs)? Why? @ -None What meds were considered but not given or refused? Why? @ -None Did you discuss the management of the patient with other professionals (professionals i.e. , PA, DIRECTOR OF EPIDEMIOLOGY, lab, RT, psych nurse, social services, bi application developer, teacher, contact officer, rifle case repairer)? Give summary @ -No Was smoking cessation discussed for >3mins.? @ -No Was critical care preformed (if so, how long)? @ -No Were there social determinants of health that impacted care today? How? (Homelessness, low income, unemployed, alcoholism, drug addiction, transportation, low edu. Level, literacy, decrease access to med. care, group home, rehab)? @ -No Was there de-escalation of care discussed even if they declined (Discuss DNR or withdrawal of care, Hospice)? DNR status @ -No What co-morbidities impacted this encounter? (DM, HTN, Smoking, COPD, CAD, Cancer, CVA, ARF, Chemo, Hep., AIDS, mental health diagnosis, sleep apnea, m orbid obesity)? @ -Emphysema/COPD Was patient admitted / discharged? Hospital course, mention meds given and route, prescriptions, significant lab abnormalities, going to OR and other pertinent info. @ -Patient presents emergency department for URI symptoms. Patient had quick note workup already completed. I evaluated patient when he was placed in a hallway bed. Vitals are within acceptable limits. Chest x-ray remarkable for possible basilar pneumonia. Laboratory studies are remarkable for negative viral swabs. Troponin and BNP within acceptable limits. Incidental finding of elevated LFTs and alk phos which are chronic for the patient based on previous labs. Discussed results with the patient. He will be given breathing treatment, IV steroids, and started on antibiotics. He was in agreement this plan. Following breathing treatment, lung sounds are improved and he is feeling improved. He will be discharged home at this time on Augmentin, prednisone, as well as albuterol inhaler. He was in agreement this plan. Strict return precautions discussed. I instructed the patient to follow up with their PCP in the next 1-3 days. I explained that the patient should return to the emergency department if they experience any worsening symptoms. Strict return precautions were discussed with the patient. The patient expressed understanding of these instructions. I answered all questions that the patient had. The patient was discharged home in good condition with their prescriptions and follow up information. Undiagnosed new problem with uncertain prognosis? @ -No Drug Therapy requiring intensive monitoring for toxicity (Heparin, Nitro, Insulin, Cardizem)? @ -No Were any procedures done? @ -No Diagnosis/symptom? @ -Pneumonia, COPD Acute, or Chronic, or Acute on Chronic? @ -Acute Uncomplicated (without systemic symptoms) or Complicated (systemic symptoms)? @ -Uncomplicated Side effects of treatment? @ -No Exacerbation, Progression, or Severe Exacerbation? @ -No Poses a threat to life or bodily function? How? (Chest pain, [place], VA, pneumonia, PE, COPD, DKA, ARF, appy, cholecystitis, CVA, Diverticulitis, Homicidal, Suicidal, threat to staff... and all critical care pts) @ -Unlikely at this time (Eduar Pinto) - Lab Data Lab Results 12/25/24 12/25/24 12/25/24 Range/Units 16:49 16:49 16:49 WBC 9.54 (4.50-10.00) 10*3/uL RBC 3.78 L (4.40-5.60) 10*6/uL Hgb 13.6 (13.0-17.0) g/dL Hct 38.5 L (39.6-50.0) % MCV 101.9 H (80.0-97.0) fL MCH 36.0 H (27.0-32.0) pg MCHC 35.3 (32.0-37.0) g/dL Plt Count 191 (140-440) 10*3/uL MPV 10.4 (9.5-12.2) fL Immature Gran % (Auto) 0.3 % Neutrophils % 88.6 % Lymphocytes % 5.7 % Monocytes % 5.2 % Eosinophils % 0.0 % Basophils % 0.2 % Immature Gran # 0.03 (0.00-0.04) 10*3/uL Neutrophils # 8.45 H (1.80-7.70) 10*3/uL Lymphocytes # 0.54 L (0.90-5.00) 10*3/uL Monocytes # 0.50 (0.20-1.00) 10*3/uL Eosinophils # 0.00 L (0.04-0.35) 10*3/uL Basophils # 0.02 (0.00-0.10) 10*3/uL PT 10.4 (10.0-12.5) sec INR 0.9 (<1.2) APTT 25.1 (22.0-30.0) sec Sodium 133 L (137-145) mmol/L Potassium 4.7 (3.5-5.1) mmol/L Chloride 100 (98-107) mmol/L Carbon Dioxide 27 (22-30) mmol/L Anion Gap 6 mmol/L BUN 15 (9-20) mg/dL Creatinine 1.04 (0.66-1.25) mg/dL Est GFR (CKD-EPI)AfAm 85 (>60 ml/min/1.73 sqM) Est GFR (CKD-EPI)NonAf 74 (>60 ml/min/1.73 sqM) Glucose 114 H (74-99) mg/dL Plasma Lactic Acid Matt (0.7-2.0) mmol/L Calcium 8.9 (8.4-10.2) mg/dL Magnesium 2.0 (1.6-2.3) mg/dL Total Bilirubin 1.0 (0.2-1.3) mg/dL AST 144 H (17-59) U/L ALT 127 H (4-49) U/L Alkaline Phosphatase 412 H (38-126) U/L Troponin I (0.000-0.034) ng/mL NT-Pro-B Natriuret Pep pg/mL Total Protein 6.2 L (6.3-8.2) g/dL Albumin 3.7 (3.5-5.0) g/dL Influenza Type A (PCR) (Not Detectd) Influenza Type B (PCR) (Not Detectd) RSV (PCR) (Not Detectd) SARS-CoV-2 (PCR) (Not Detectd) 12/25/24 12/25/24 12/25/24 Range/Units 16:49 16:49 16:49 WBC (4.50-10.00) 10*3/uL RBC (4.40-5.60) 10*6/uL Hgb (13.0-17.0) g/dL Hct (39.6-50.0) % MCV (80.0-97.0) fL MCH (27.0-32.0) pg MCHC (32.0-37.0) g/dL Plt Count (140-440) 10*3/uL MPV (9.5-12.2) fL Immature Gran % (Auto) % Neutrophils % % Lymphocytes % % Monocytes % % Eosinophils % % Basophils % % Immature Gran # (0.00-0.04) 10*3/uL Neutrophils # (1.80-7.70) 10*3/uL Lymphocytes # (0.90-5.00) 10*3/uL Monocytes # (0.20-1.00) 10*3/uL Eosinophils # (0.04-0.35) 10*3/uL Basophils # (0.00-0.10) 10*3/uL PT (10.0-12.5) sec INR (<1.2) APTT (22.0-30.0) sec Sodium (137-145) mmol/L Potassium (3.5-5.1) mmol/L Chloride (98-107) mmol/L Carbon Dioxide (22-30) mmol/L Anion Gap mmol/L BUN (9-20) mg/dL Creatinine (0.66-1.25) mg/dL Est GFR (CKD-EPI)AfAm (>60 ml/min/1.73 sqM) Est GFR (CKD-EPI)NonAf (>60 ml/min/1.73 sqM) Glucose (74-99) mg/dL Plasma Lactic Acid Matt 1.2 (0.7-2.0) mmol/L Calcium (8.4-10.2) mg/dL Magnesium (1.6-2.3) mg/dL Total Bilirubin (0.2-1.3) mg/dL AST (17-59) U/L ALT (4-49) U/L Alkaline Phosphatase (38-126) U/L Troponin I 0.025 (0.000-0.034) ng/mL NT-Pro-B Natriuret Pep pg/mL Total Protein (6.3-8.2) g/dL Albumin (3.5-5.0) g/dL Influenza Type A (PCR) Not Detected (Not Detectd) Influenza Type B (PCR) Not Detected (Not Detectd) RSV (PCR) Not Detected (Not Detectd) SARS-CoV-2 (PCR) Not Detected (Not Detectd) 12/25/24 Range/Units 16:49 WBC (4.50-10.00) 10*3/uL RBC (4.40-5.60) 10*6/uL Hgb (13.0-17.0) g/dL Hct (39.6-50.0) % MCV (80.0-97.0) fL MCH (27.0-32.0) pg MCHC (32.0-37.0) g/dL Plt Count (140-440) 10*3/uL MPV (9.5-12.2) fL Immature Gran % (Auto) % Neutrophils % % Lymphocytes % % Monocytes % % Eosinophils % % Basophils % % Immature Gran # (0.00-0.04) 10*3/uL Neutrophils # (1.80-7.70) 10*3/uL Lymphocytes # (0.90-5.00) 10*3/uL Monocytes # (0.20-1.00) 10*3/uL Eosinophils # (0.04-0.35) 10*3/uL Basophils # (0.00-0.10) 10*3/uL PT (10.0-12.5) sec INR (<1.2) APTT (22.0-30.0) sec Sodium (137-145) mmol/L Potassium (3.5-5.1) mmol/L Chloride (98-107) mmol/L Carbon Dioxide (22-30) mmol/L Anion Gap mmol/L BUN (9-20) mg/dL Creatinine (0.66-1.25) mg/dL Est GFR (CKD-EPI)AfAm (>60 ml/min/1.73 sqM) Est GFR (CKD-EPI)NonAf (>60 ml/min/1.73 sqM) Glucose (74-99) mg/dL Plasma Lactic Acid Matt (0.7-2.0) mmol/L Calcium (8.4-10.2) mg/dL Magnesium (1.6-2.3) mg/dL Total Bilirubin (0.2-1.3) mg/dL AST (17-59) U/L ALT (4-49) U/L Alkaline Phosphatase (38-126) U/L Troponin I (0.000-0.034) ng/mL NT-Pro-B Natriuret Pep 655 pg/mL Total Protein (6.3-8.2) g/dL Albumin (3.5-5.0) g/dL Influenza Type A (PCR) (Not Detectd) Influenza Type B (PCR) (Not Detectd) RSV (PCR) (Not Detectd) SARS-CoV-2 (PCR) (Not Detectd) - EKG Data EKG Comments: 12-lead Electrocardiogram Interpretation Note EKG was reviewed and interpreted by myself. 12-lead ECG performed at 1401 is interpreted by me as revealing normal sinus rhythm at a rate of 88 beats per minute. [place] is normal. [place] interval is 216 ms, QRS duration is 92 ms, QTc is 379 ms.. There were no ST or T wave abnormalities to suggest myocardial ischemia or injury. R wave progression across the precordium was satisfactory. By my interpretation this EKG is non-diagnostic for acute ischemia. (Eduar Pinto) Disposition <Christine James - Last Filed: 12/25/24 15:14> Is patient prescribed a controlled substance at d/c from ED?: No Time of Disposition: 18:55 <Eduar Pinto - Last Filed: 12/25/24 20:58> Clinical Impression: COPD (chronic obstructive pulmonary disease), Pneumonia Disposition: HOME SELF-CARE Condition: Good Instructions (If sedation given, give patient instructions): COPD (Chronic Obstructive Pulmonary Disease) (ED), Community Acquired Pneumonia (ED) Prescriptions: Amoxic-Pot Clav 875-125Mg [Augmentin 875-125] 1 tab PO BID 7 Days #14 tab predniSONE [Deltasone] 40 mg PO DAILY 5 Days #10 tab Albuterol Inhaler [Ventolin Hfa Inhaler] 1 - 2 puff INHALATION Q6H PRN #1 each PRN Reason: Dyspnea Referrals: None,Stated [REFERRING] - 1-2 days Noman Hui MD [STAFF PHYSICIAN] - 1-2 days Forms: Area PCPs
--- NOTE | 2024-12-25 15:32 | XR ---
EXAMINATION TYPE: XR chest 2V DATE OF EXAM: 12/25/2024 3:22 PM COMPARISON: 08/08/2023 CLINICAL INDICATION: Male, 69 years old with history of [place], cough, fevers, , TECHNIQUE: PA and lateral views FINDINGS: Heart normal size. Aorta and pulmonary vasculature within normal limits. Mild hyperinflation. Multipl e patchy posterior basilar opacity on the lateral view. No pleural. IMPRESSION: COPD with some patchy atelectasis versus developing pneumonia posterior lung base on the lateral. [facility], , 12/25/2024 3:30 PM
[2024-12-25 17:01] LABS: Basophils # (A) 0.02 10*3/uL (0.00-0.10); Basophils % (A) 0.2 %; HCT 38.5 % (39.6-50.0); HGB 13.6 g/dL (13.0-17.0); Lymphocytes # (A) 0.54 10*3/uL (0.90-5.00); Lymphocytes % (A) 5.7 %; MCHC 35.3 g/dL (32.0-37.0); MCV 101.9 fL (80.0-97.0); Mean Platelet Volume 10.4 fL (9.5-12.2); Monocytes % (A) 5.2 %; Neutrophils # (A) 8.45 10*3/uL (1.80-7.70); Neutrophils % (A) 88.6 %; Platelet Count 191 10*3/uL (140-440); RBC 3.78 10*6/uL (4.40-5.60); RDW 13.2 % (11.5-14.5); WBC 9.54 10*3/uL (4.50-10.00)
[2024-12-25 17:13] LABS: ALT 127 U/L (4-49); AST 144 U/L (17-59); African American GFR (CKD) 85 (>60 ml/min/1.73 sqM); Albumin 3.7 g/dL (3.5-5.0); Alkaline Phosphatase 412 U/L (38-126); Anion Gap 6 mmol/L; Blood Urea Nitrogen 15 mg/dL (9-20); Calcium 8.9 mg/dL (8.4-10.2); Carbon Dioxide 27 mmol/L (22-30); Chloride 100 mmol/L (98-107); Glucose 114 mg/dL (74-99); INR 0.9 (<1.2); Non-African American GFR(CKD) 74 (>60 ml/min/1.73 sqM); Partial Thromboplastin Time 25.1 sec (22.0-30.0); Potassium 4.7 mmol/L (3.5-5.1); Prothrombin Time 10.4 sec (10.0-12.5); Sodium 133 mmol/L (137-145); Total Protein 6.2 g/dL (6.3-8.2)
[2024-12-25 17:37] LABS: Influenza A Not Detected (Not Detectd); Influenza B Not Detected (Not Detectd); RSV Not Detected (Not Detectd)
[2024-12-25] MEDS: IPRATROPIUM-ALBUTEROL 3 ML NEB INHALATION STA (18:30)
[2024-12-25] MEDS: cefTRIAXone IN SWFI 1,000 MG/10 ML SYRINGE IVP STA (19:12)
[2024-12-25] MEDS: AMOXIC-POT CLAV 875-125MG 1 EACH TAB PO STA (19:13)
[2024-12-25] MEDS: methylPREDNISolone SOD SUCCI 125 MG/2 ML VIAL IV STA (19:13)
[2024-12-25 19:55] VITALS: BP 168/78; PULSE 86; RESP 16; TEMP 97.8
== END 2024-12-25 19:24 | disposition home or self-care (01) ==
LOC: EC 13:52
DX: J44.9 Chronic obstructive pulmonary disease, unspecified (principal); J43.9 Emphysema, unspecified; J18.9 Pneumonia, unspecified organism; F17.200 Nicotine dependence, unspecified, uncomplicated
CPT/HCPCS: 36415; 94640; 93005; 83880; 80053; 83605; 83735; 84484; 85025; 85610; 85730; 87636; 71046; 99285; 96374; 96375; J0696; J2919

== ENCOUNTER → 2025-02-15 | Outpatient (CLI) | payer OTHER ==
[2025-02-15 11:27] LABS: African American GFR (CKD) 44 (>60 ml/min/1.73 sqM); Blood Urea Nitrogen 25 mg/dL (9-20); Non-African American GFR(CKD) 38 (>60 ml/min/1.73 sqM)
--- NOTE | 2025-02-15 12:24 | CT ---
EXAMINATION TYPE: CT chest wo con DATE OF EXAM: 02/15/2025 11:50 AM COMPARISON: CT 08/03/2024 CLINICAL INDICATION: Male, 69 years old with history of R91.1 SOLITARY PULMONARY NODULE; PHH, Lung no dules TECHNIQUE: Multiple axial images were obtained through the chest. Sagittal and coronal reformats were created for review. MIP was performed on a separate workstation. Contrast used: mL of (None if empty) Oral contrast used: (None if empty) CT DLP: 469 mGycm, Automated exposure control for dose reduction was used. FINDINGS: LUNGS/ PLEURA: No pleural effusion or pneumothorax. No lower lobe airspace consolidation visualized o n today's exam. Stable left lower lobe 5 mm pulmonary nodule (series 3 image 49 Stable Right middle lobe 5 mm pulmonary nodule (series 3 image 50). Stable Right lower lobe bleb. AIRWAY: Patent and unremarkable.. HEART: Size within normal limits.No pericardial effusion. MEDIASTINUM: No evidence of adenopathy. VASCULATURE: No aortic aneurysm. MUSCULOSKELETAL: Mild disc degeneration changes are present throughout the thoracolumbar spine. No ag gressive osseous lesion. No acute osseous abnormality. Mild degeneration changes of the shoulders. SOFT TISSUES/LYMPH NODES: Bilateral gynecomastia. LOWER NECK: No significant findings. UPPER ABDOMEN: Moderate right hydronephrosis with hyperdense material identified within the proximal visualized ureter again. Nonobstructive bilateral renal calculi redemonstrated. Gallbladder is surgic al absent. IMPRESSION: 1. No acute thoracic process. 2. Stable pulmonary nodules. No follow-up recommended for these nodules. Consider yearly low-dose patrick g cancer screening. 3. Nonobstructive bilateral renal calculi. 4. Resolution of prior right lower lobe airspace consolidation. [facility], , 02/15/2025 12:22 PM
== END | disposition home or self-care (01) ==
LOC: RADCTMAIN 10:25
PROVIDERS: ATTEND Internal Medicine Critical Care Medicine
DX: R91.8 Other nonspecific abnormal finding of lung field (principal); N20.0 Calculus of kidney
CPT/HCPCS: 36415; 71250; 82565; 84520

== ENCOUNTER 2025-02-19 13:27 | Emergency (ER) | payer OTHER ==
--- NOTE | 2025-02-19 14:04 | ED ---
Abdominal Pain HPI - General Source: patient, RN notes reviewed Mode of arrival: ambulatory Limitations: physical limitation <Ella Horton - Last Filed: 02/19/25 14:03> <Christine James - Last Filed: 02/19/25 23:35> - General Chief Complaint: Abdominal Pain Stated Complaint: Nausea Time Seen by Provider: 02/19/25 14:03 - History of Present Illness Initial Comments: Quick note: 69-year-old male presented to ER for evaluation of abdominal pain. He reports the past 2 days he has been having severe abdominal pain along with nausea and diarrhea. He also admits to hot and cold flashes. Patient states he is a heavy drinker and has not had a drink in 36 hours. Denies a history of withdrawal seizures. 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 Patient states that he has been having this lower abdominal pain over the past few weeks over the past 3 days the pain is worsened. He endorses multiple loose stools that are nonbloody or dark or sticky. Denies urinary complaints. He states that he stopped drinking alcohol about 36 hours ago where he normally drinks up to 1/5/day. Endorses mild anxiety at this time however denies history of alcohol withdrawal seizures. (Christine James) - Related Data Home Medications Medication Instructions Recorded Confirmed Ferrous Sulfate [Slow Release Iron] 1 tab PO DAILY 08/04/24 10/06/24 LORazepam [Ativan] 0.5 mg PO BID 08/04/24 10/03/24 Nicotine 21Mg/24Hr Patch [Habitrol] 1 each TRANSDERM DAILY 08/04/24 10/03/24 Naproxen Sodium [Aleve] 440 mg PO DAILY PRN 10/03/24 10/06/24 Albuterol Inhaler [Ventolin Hfa 1 puff INHALATION ONCE PRN 10/06/24 10/06/24 Inhaler] Previous Rx's Medication Instructions Recorded HYDROcodone/APAP 5-325MG [D[place]ola 1 tab PO Q4HR PRN 7 Days #30 tab 10/07/24 5-325] LORazepam [Ativan] 1 mg PO HS 7 Days #7 tab 10/07/24 Albuterol Inhaler [Ventolin Hfa 1 - 2 puff INHALATION Q6H PRN #1 12/25/24 Inhaler] each Amoxic-Pot Clav 875-125Mg 1 tab PO BID 7 Days #14 tab 12/25/24 [Augmentin 875-125] predniSONE [Deltasone] 40 mg PO DAILY 5 Days #10 tab 12/25/24 Loperamide [Imodium] 2 mg PO QID PRN #24 capsule 02/19/25 Magnesium Oxide [Magox 400] 400 mg PO DAILY #4 tablet 02/19/25 Ondansetron Odt [Zofran Odt] 4 mg PO Q8HR PRN #10 tab 02/19/25 Allergies Allergy/AdvReac Type Severity Reaction Status Date / Time No Known Allergies Allergy Verified 12/25/24 13:56 Review of Systems ROS Other: All systems not noted in ROS Statement are negative. <Ella Horton - Last Filed: 02/19/25 14:03> ROS Other: All systems not noted in ROS Statement are negative. <Christine James - Last Filed: 02/19/25 23:35> ROS Statement: Those systems with pertinent positive or pertinent negative responses have been documented in the HPI. Past Medical History Past Medical History: Rheumatoid Arthritis (RA) Additional Past Medical History / Comment(s): deaf Rt. ear, wears hearing aid Lt. ear, hydronephrosis, anemia, fatigue, states Dr. 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 Absent: respiratory distress, wheezes, rales, rhonchi, stridor Cardiovascular Exam: Present: regular rate, normal rhythm, normal heart sounds. Absent: systolic murmur, diastolic murmur, rubs, gallop, clicks GI/Abdominal exam: Present: soft, normal bowel sounds. Absent: distended, tenderness, guarding, rebound, rigid Extremities exam: Present: normal inspection, full ROM, normal capillary refill. Absent: tenderness, pedal edema, joint swelling, calf tenderness Back exam: Present: normal inspection Skin exam: Present: warm, dry, intact, normal color. Absent: rash <Christine James - Last Filed: 02/19/25 23:35> - General Exam Comments Initial Comments: Visual Physical Exam Vital signs reviewed General: ill-appearing, nontoxic, no acute distress. Anxious Head: Normocephalic, atraumatic Eyes: PERRLA, EOMI ENT: Airway patent Chest: Nonlabored breathing Skin: No visual rash, normal skin tone Neuro: Alert and oriented 3 Musculoskeletal: No gross abnormalities (Ella Horton) Course Vital Signs 02/19/25 02/19/25 02/19/25 13:31 15:19 17:32 Temperature 98.3 F Pulse Rate 102 H 83 79 Respiratory 18 18 16 Rate Blood Pressure 166/100 177/119 159/123 O2 Sat by Pulse 98 98 100 Oximetry 02/19/25 17:46 Temperature 98 F Pulse Rate 76 Respiratory 16 Rate Blood Pressure 161/104 O2 Sat by Pulse 100 Oximetry Medical Decision Making <Ella Horton - Last Filed: 02/19/25 14:03> - Lab Data Result diagrams: 02/19/25 14:21 02/19/25 14:21 <Christine James - Last Filed: 02/19/25 23:35> - Medical Decision Making I performed the quick note portion of this chart. Electronically signed by Ella Horton PA-C (Ella Horton) Was pt. sent in by a medical professional or institution (MARITA Zimmer, CONGREGATIONAL CARE PASTOR, urgent care, hospital, or halfway...) When possible be specific @ -No Did you speak to anyone other than the patient for history (EMS, parent, family, police, friend...)? What history was obtained from this source @ -No Did you review nursing and triage notes (agree or disagree)? Why? @ -I reviewed and agree with nursing and triage notes Were old charts reviewed (outside hosp., previous admission, EMS record, old EKG, old radiological studies, urgent care reports/EKG's, halfway records)? Report findings @ -I reviewed patient's follow-up visit note from 02/16/[address] Zafar to follow-up regarding lung nodule, kidney mass and follow-up after recent surgery. CT of the chest completed on 02/15/2025 for revealed stable nodules in the right middle lobe and right lower lobe with no acute findings and follow-up CT chest in 1 year Differential Diagnosis (chest pain, altered mental status, abdominal pain women, abdominal pain men, vaginal bleeding, weakness, fever, dyspnea, syncope, headache, dizziness, GI bleed, back pain, seizure, CVA, palpatations, mental health, musculoskeletal)? @ -Differential Abdominal Pain Men: Appendicitis, cholecystitis, diverticulosis, ischemic bowel, pancreatitis, hepatitis, UTI, gastroenteritis, AAA, incarcerated hernia, bowel obstruction, constipation, inflammatory bowel, hepatitis, peptic ulcer disease, splenic infarction, perforated viscus, testicular torsion, this is not meant to be an all-inclusive list EKG interpreted by me (3pts min.). @ -none X-rays interpreted by me (1pt min.). @ -None done CT interpreted by me (1pt min.). @ -CT imaging of the abdomen and pelvis with IV contrast reveals no acute intra- abdominal process no obstructive uropathy U/S interpreted by me (1pt. min.). @ -None done What testing was considered but not performed or refused? (CT, X-rays, U/S, labs)? Why? @ -None What meds were considered but not given or refused? Why? @ -None Did you discuss the management of the patient with other professionals (professionals i.e. , PA, CONGREGATIONAL CARE PASTOR, lab, RT, psych nurse, social economist, senior occupational therapist, teacher, police officer crime prevention, pillowcase sewer)? Give summary @ -No Was smoking cessation discussed for >3mins.? @ -No Was critical care preformed (if so, how long)? @ -No Were there social determinants of health that impacted care today? How? (Homelessness, low income, unemployed, alcoholism, drug addiction, transportation, low edu. Level, literacy, decrease access to med. care, fpc, rehab)? @ -No Was there de-escalation of care discussed even if they declined (Discuss DNR or withdrawal of care, Hospice)? DNR status @ -No What co-morbidities impacted this encounter? (DM, HTN, Smoking, COPD, CAD, Cancer, CVA, ARF, Chemo, Hep., AIDS, mental health diagnosis, sleep apnea, morbid obesity)? @ -None Was patient admitted / discharged? Hospital course, mention meds given and route, prescriptions, significant lab abnormalities, going to OR and other pertinent info. @ -Discharge. 69-year-old male presenting to the ER with complaints of abdominal pain, nausea vomiting and diarrhea. Patient is originally evaluated in the emergency department waiting room as a quick note where laboratory testing is ordered. Patient noted be hypertensive on arrival with a blood pressure of 166/110. Patient has mild left lower abdominal tenderness to palpation. He is provided with IV fluids with concern for clinical dehydration, antiemetics, pain medication. Labs reveal transaminitis with an alkaline phosphatase of 212, ALT of 60, AST of 113 and total bilirubin 1.7. Patient's magnesium is low at 1.3 is provided with oral resupplementation. CBC is unr emarkable. Urinalysis reveals no signs of infection. Serum alcohol is less than 10. CT imaging of the abdomen pelvis reveals no acute process. Patient's blood pressure is still elevated at a level of 161/104, he is provided with IV push hydralazine and instructed to continue to take his antihypertensive as prescribed as he reports that he has not been taking them. At this time believe patient is stable for discharge as he also has a CIWA of 1. He is provided with outpatient prescription for Imodium and magnesium and is instructed to follow-up with his primary care provider. Return parameters discussed. Case discussed with my attending Dr. Wu. Undiagnosed new problem with uncertain prognosis? @ -No Drug Therapy requiring intensive monitoring for toxicity (Heparin, Nitro, Insulin, Cardizem)? @ -No Were any procedures done? @ -No Diagnosis/symptom? @ - alcohol withdrawal and abuse, acute diarrhea, acute nausea vomiting Acute, or Chronic, or Acute on Chronic? @ -Acute Uncomplicated (without systemic symptoms) or Complicated (systemic symptoms)? @ -uncomplicated Side effects of treatment? @ -No Exacerbation, Progression, or Severe Exacerbation? @ -No Poses a threat to life or bodily function? How? (Chest pain, USA, ME, pneumonia, PE, COPD, DKA, ARF, appy, cholecystitis, CVA, Diverticulitis, Homicidal, Suicidal, threat to staff... and all critical care pts) @ -No (Christine James) - Lab Data Lab Results 02/19/25 02/19/25 02/19/25 Range/Units 14:21 14:21 14:21 WBC 6.57 (4.50-10.00) 10*3/uL RBC 3.61 L (4.40-5.60) 10*6/uL Hgb 13.6 (13.0-17.0) g/dL Hct 37.7 L (39.6-50.0) % MCV 104.4 H (80.0-97.0) fL MCH 37.7 H (27.0-32.0) pg MCHC 36.1 (32.0-37.0) g/dL Plt Count 164 (140-440) 10*3/uL MPV 10.3 (9.5-12.2) fL Immature Gran % (Auto) 0.5 % Neutrophils % 82.1 % Lymphocytes % 10.4 % Monocytes % 6.5 % Eosinophils % 0.2 % Basophils % 0.3 % Immature Gran # 0.03 (0.00-0.04) 10*3/uL Neutrophils # 5.40 (1.80-7.70) 10*3/uL Lymphocytes # 0.68 L (0.90-5.00) 10*3/uL Monocytes # 0.43 (0.20-1.00) 10*3/uL Eosinophils # 0.01 L (0.04-0.35) 10*3/uL Basophils # 0.02 (0.00-0.10) 10*3/uL Sodium 135 L (137-145) mmol/L Potassium 4.0 (3.5-5.1) mmol/L Chloride 102 (98-107) mmol/L Carbon Dioxide 27 (22-30) mmol/L Anion Gap 6 mmol/L BUN 21 H (9-20) mg/dL Creatinine 1.31 H (0.66-1.25) mg/dL Est GFR (CKD-EPI)AfAm 65 (>60 ml/min/1.73 sqM) Est GFR (CKD-EPI)NonAf 56 (>60 ml/min/1.73 sqM) Glucose 103 H (74-99) mg/dL Plasma Lactic Acid Matt 1.0 (0.7-2.0) mmol/L Calcium 9.0 (8.4-10.2) mg/dL Magnesium (1.6-2.3) mg/dL Total Bilirubin 1.7 H (0.2-1.3) mg/dL AST 113 H (17-59) U/L ALT 60 H (4-49) U/L Alkaline Phosphatase 212 H (38-126) U/L Total Protein 6.3 (6.3-8.2) g/dL Albumin 4.0 (3.5-5.0) g/dL Amylase 59 (30-110) U/L Lipase 184 (23-300) U/L Urine Color Urine Appearance (Clear) Urine pH (5.0-8.0) Ur Specific [place] (1.001-1.035) Urine Protein (Negative) Urine Glucose (UA) (Negative) Urine Ketones (Negative) Urine Blood (Negative) Urine Nitrite (Negative) Urine Bilirubin (Negative) Urine Urobilinogen (<2.0) mg/dL Ur Leukocyte Esterase (Negative) Urine RBC (0-5) /hpf Urine WBC (0-5) /hpf Urine Bacteria (None) /hpf Hyaline Casts (0-2) /lpf Urine Mucus (None) /hpf Serum Alcohol mg/dL 02/19/25 02/19/25 Range/Units 15:05 15:56 WBC (4.50-10.00) 10*3/uL RBC (4.40-5.60) 10*6/uL Hgb (13.0-17.0) g/dL Hct (39.6-50.0) % MCV (80.0-97.0) fL MCH (27.0-32.0) pg MCHC (32.0-37.0) g/dL Plt Count (140-440) 10*3/uL MPV (9.5-12.2) fL Immature Gran % (Auto) % Neutrophils % % Lymphocytes % % Monocytes % % Eosinophils % % Basophils % % Immature Gran # (0.00-0.04) 10*3/uL Neutrophils # (1.80-7.70) 10*3/uL Lymphocytes # (0.90-5.00) 10*3/uL Monocytes # (0.20-1.00) 10*3/uL Eosinophils # (0.04-0.35) 10*3/uL Basophils # (0.00-0.10) 10*3/uL Sodium (137-145) mmol/L Potassium (3.5-5.1) mmol/L Chloride (98-107) mmol/L Carbon Dioxide (22-30) mmol/L Anion Gap mmol/L BUN (9-20) mg/dL Creatinine (0.66-1.25) mg/dL Est GFR (CKD-EPI)AfAm (>60 ml/min/1.73 sqM) Est GFR (CKD-EPI)NonAf (>60 ml/min/1.73 sqM) Glucose (74-99) mg/dL Plasma Lactic Acid Matt (0.7-2.0) mmol/L Calcium (8.4-10.2) mg/dL Magnesium 1.3 L (1.6-2.3) mg/dL Total Bilirubin (0.2-1.3) mg/dL AST (17-59) U/L ALT (4-49) U/L Alkaline Phosphatase (38-126) U/L Total Protein (6.3-8.2) g/dL Albumin (3.5-5.0) g/dL Amylase (30-110) U/L Lipase (23-300) U/L Urine Color Yellow Urine Appearance Clear (Clear) Urine pH 6.0 (5.0-8.0) Ur Specific [place] 1.015 (1.001-1.035) Urine Protein Trace H (Negative) Urine Glucose (UA) Negative (Negative) Urine Ketones Trace H (Negative) Urine Blood Trace H (Negative) Urine Nitrite Negative (Negative) Urine Bilirubin Negative (Negative) Urine Urobilinogen <2.0 (<2.0) mg/dL Ur Leukocyte Esterase Negative (Negative) Urine RBC <1 (0-5) /hpf Urine WBC 1 (0-5) /hpf Urine Bacteria Rare H (None) /hpf Hyaline Casts 1 (0-2) /lpf Urine Mucus Rare H (None) /hpf Serum Alcohol <10 mg/dL Disposition <Ella Horton - Last Filed: 02/19/25 14:03> Is patient prescribed a controlled substance at d/c from ED?: No Time of Disposition: 17:32 <Christine James - Last Filed: 02/19/25 23:35> Clinical Impression: Hypomagnesemia, Alcohol abuse with withdrawal Disposition: HOME SELF-CARE Condition: Stable Additional Instructions: Please return to the Emergency Department if symptoms worsen or any other concerns. Please follow-up with your primary care provider in the next 1 to 3 days for further evaluation and to recheck your magnesium. You may take the prescribed Imodium as needed taking 4 mg by mouth 1 time and then an additional 2 mg by mouth after each loose stool you have with a max of 16 mg/day. Prescriptions: Loperamide [Imodium] 2 mg PO QID PRN #24 capsule PRN Reason: Diarrhea Magnesium Oxide [Magox 400] 400 mg PO DAILY #4 tablet Ondansetron Odt [Zofran Odt] 4 mg PO Q8HR PRN #10 tab PRN Reason: Nausea Referrals: Lilo Felipe MD [Primary Care Provider] - 1-2 days
[2025-02-19 14:27] LABS: Basophils # (A) 0.02 10*3/uL (0.00-0.10); Basophils % (A) 0.3 %; Eosinophils # (A) 0.01 10*3/uL (0.04-0.35); Eosinophils % (A) 0.2 %; HCT 37.7 % (39.6-50.0); HGB 13.6 g/dL (13.0-17.0); Lymphocytes # (A) 0.68 10*3/uL (0.90-5.00); Lymphocytes % (A) 10.4 %; MCH 37.7 pg (27.0-32.0); MCHC 36.1 g/dL (32.0-37.0); MCV 104.4 fL (80.0-97.0); Monocytes # (A) 0.43 10*3/uL (0.20-1.00); Monocytes % (A) 6.5 %; Neutrophils # (A) 5.40 10*3/uL (1.80-7.70); Neutrophils % (A) 82.1 %; Platelet Count 164 10*3/uL (140-440); RBC 3.61 10*6/uL (4.40-5.60); RDW 13.2 % (11.5-14.5); WBC 6.57 10*3/uL (4.50-10.00)
[2025-02-19 14:38] LABS: ALT 60 U/L (4-49); African American GFR (CKD) 65 (>60 ml/min/1.73 sqM); Albumin 4.0 g/dL (3.5-5.0); Amylase 59 U/L (30-110); Anion Gap 6 mmol/L; Blood Urea Nitrogen 21 mg/dL (9-20); Calcium 9.0 mg/dL (8.4-10.2); Carbon Dioxide 27 mmol/L (22-30); Chloride 102 mmol/L (98-107); Glucose 103 mg/dL (74-99); Lipase 184 U/L (23-300); Non-African American GFR(CKD) 56 (>60 ml/min/1.73 sqM); Sodium 135 mmol/L (137-145); Total Protein 6.3 g/dL (6.3-8.2)
[2025-02-19 14:42] LABS: AST 113 U/L (17-59); Alkaline Phosphatase 212 U/L (38-126); Potassium 4.0 mmol/L (3.5-5.1)
[2025-02-19 15:49] LABS: Bacteria,Urine Rare /hpf; Bilirubin,Urine Negative (Negative); Blood,Urine Trace (Negative); Color,Urine Yellow; Glucose,Urine (UA) Negative (Negative); Hyaline Casts,Urine 1 /lpf (0-2); Ketones,Urine Trace (Negative); Leukocyte Esterase,Urine Negative (Negative); Mucus,Urine Rare /hpf; Nitrite,Urine Negative (Negative); PH, Urine 6.0 (5.0-8.0); Protein,Urine Trace (Negative); RBC,Urine <1 /hpf (0-5); Specific Gravity,Urine 1.015 (1.001-1.035); Urobilinogen,Urine <2.0 mg/dL (<2.0); WBC,Urine 1 /hpf (0-5)
[2025-02-19] MEDS: ONDANSETRON 4 MG/2 ML VIAL IVP STA (15:59)
[2025-02-19] MEDS: SODIUM CHLORIDE 0.9% 1,000 ML IV ONE (16:00)
[2025-02-19] MEDS: MORPHINE SULFATE 4 MG/ML SYRINGE IVP STA (16:00)
[2025-02-19 16:14] LABS: Magnesium 1.3 mg/dL (1.6-2.3)
[2025-02-19] MEDS: MAGNESIUM OXIDE 400 MG TAB PO STA (16:58)
--- NOTE | 2025-02-19 17:03 | CT ---
EXAMINATION TYPE: CT abdomen pelvis wo con DATE OF EXAM: 02/19/2025 4:33 PM COMPARISON: 07/20/2024 CLINICAL INDICATION: Male, 69 years old with history of LLQ ab pain, N/V/D, chills; LLQ ab pain, N/V/ D, chills TECHNIQUE: Axial CT abdomen pelvis wo con;Sagittal and coronal reformats were created on a separate workstation. Contrast used: mL of , (none if empty) Oral contrast used: without Oral Contrast (none if empty) CT DLP: 489.9 mGycm, Automated exposure control for dose reduction was used. FINDINGS: LOWER CHEST: Unremarkable ABDOMEN LIVER: Unremarkable GALLBLADDER AND BILE DUCTS: Unremarkable. PANCREAS: Unremarkable. SPLEEN: Unremarkable. ADRENAL GLANDS: Unremarkable. KIDNEYS AND URETERS: No evidence of hydronephrosis or obstructing renal calculus. The ureters are unr emarkable. Nonobstructing left renal calculi identified millimeters. Right kidney is surgically absent. PELVIS BLADDER: No evidence for wall thickening or mass given limitations of exam. REPRODUCTIVE: Unremarkable. ABDOMEN & PELVIS STOMACH AND BOWEL: Small hiatal hernia. No evidence of bowel obstruction. Scattered colonic diverticu la. The appendix is normal. PERITONEUM/RETROPERITONEUM: No evidence of pneumoperitoneum or free fluid. VASCULATURE: No evidence of aortic aneurysm. MUSCULOSKELETAL: No acute osseous abnormalities. Severe disc degeneration changes are present through out the thoracolumbar spine. Dorsal scoliosis apex L4. LYMPH NODES: No gross evidence for lymphadenopathy. SOFT TISSUE/ABDOMINAL WALL: Unremarkable IMPRESSION: 1. No evidence for acute abdominal process. 2. Small hiatal hernia. 3. Colonic diverticulosis. 4. Normal appendix. 5. No obstructive uropathy. Nonobstructing left renal calculi. 6. Surgically absent right kidney. [facility], , 02/19/2025 5:01 PM
[2025-02-19 17:33] VITALS: RESP 16
[2025-02-19] MEDS: hydrALAZINE HCL 20 MG/ML 1 ML VIAL IVP STA (17:33)
[2025-02-19 17:48] VITALS: BP 161/104; PULSE 76; TEMP 98
== END 2025-02-19 17:47 | disposition home or self-care (01) ==
LOC: EC 13:27
DX: E83.42 Hypomagnesemia (principal); F10.139 Alcohol abuse with withdrawal, unspecified; F17.200 Nicotine dependence, unspecified, uncomplicated
CPT/HCPCS: 36415; 80053; 82150; 83605; 83690; 83735; 85025; 81001; 80320; 74176; 99284; 96374; 96375 ×2; 96361; J2270; J0360; J2405

== ENCOUNTER → 2025-02-28 | Outpatient (CLI) | payer OTHER ==
[2025-02-28 16:01] LABS: Hepatitis A Antibody IgM Nonreactive (Nonreactive); Hepatitis B Surface Antigen Nonreactive (Nonreactive); Hepatitis C IgG Antibody Nonreactive (Nonreactive)
[2025-02-28 16:17] LABS: Alkaline Phosphatase 222.0 U/L (41-126); Vitamin B12 620.0 pg/mL (200.0-944.0)
== END | disposition home or self-care (01) ==
LOC: LABWHC1 10:03
DX: D75.89 Other specified diseases of blood and blood-forming organs (principal); R74.8 Abnormal levels of other serum enzymes
CPT/HCPCS: 36415; 80074; 82306; 82607; 84075

== ENCOUNTER → 2025-03-02 | Outpatient (CLI) | payer OTHER ==
--- NOTE | 2025-03-04 15:06 | US ---
EXAMINATION TYPE: US liver DATE OF EXAM: 03/02/2025 COMPARISON: NONE CLINICAL INDICATION: Male, 69 years old with history of R74.8 FINDING OF OTHER DRUGS OF ADDICTIVE POT ENTIA; Abnormal labs. GB and right kidney removed. TECHNIQUE: Grayscale and color Doppler imaging of the right upper quadrant was performed. FINDINGS: EXAM MEASUREMENTS: Liver Length: 16.7 cm CBD: 1.2 cm Pancreas: Body and tail obscured by overlying bowel gas Liver: Slightly heterogeneous echotexture. No focal lesion seen. Gallbladder: Surgically absent Evidence for sonographic Babcock's sign: neg CBD: Dilated Right Kidney: Surgically absent IMPRESSION: 1. Slightly heterogeneous appearance to the liver parenchyma may be on a technical basis. Correlate t o exclude nonspecific hepatocellular disease. No focal lesion seen. 2. Bile duct dilated to 1.2 cm. This may be due to chronic postcholecystectomy status. Correlate with alkaline phosphatase and bilirubin levels. [facility], , 03/04/2025 3:03 PM
== END | disposition home or self-care (01) ==
LOC: RADUSWWP 08:59
DX: R78.4 Finding of other drugs of addictive potential in blood (principal); Z90.5 Acquired absence of kidney; Z90.49 Acquired absence of other specified parts of digestive tract
CPT/HCPCS: 76705